=== PATIENT | male | born 1945 | race Caucasian/White ===

== ENCOUNTER 2018-06-02 09:49 | Inpatient (IN) | payer BC, MEDICARE ==
[2018-06-02] MEDS ORDERED: LIDOCAINE 1% INJ 10MG/ML (20 ML MDV) ONE (10:03)
[2018-06-02] MEDS ORDERED: MIDAZOLAM 2 MG/2 ML VIAL ONE (10:03)
[2018-06-02] MEDS ORDERED: diphenhydrAMINE 50 MG/ML 1 ML VIAL ONE (10:03)
[2018-06-02] MEDS ORDERED: SODIUM CHLORIDE 0.9% 500 ML IV ONE (10:05)
[2018-06-02] MEDS ORDERED: IV FLUID CONTINUATION 350 ML IV ONE (10:05)
[2018-06-02] MEDS ORDERED: BIVALIRUDIN 250 MG in SODIUM CHLORIDE 0.9% 50 ML IV ONE ×2 (10:15→10:48)
[2018-06-02] MEDS ORDERED: diphenhydrAMINE 50 MG/ML 1 ML VIAL IVP ONE (10:17)
[2018-06-02] MEDS ORDERED: MIDAZOLAM 2 MG/2 ML VIAL IVP ONE (10:17)
[2018-06-02] MEDS ORDERED: LIDOCAINE 1% INJ 10MG/ML (20 ML MDV) SQ ONE (10:17)
[2018-06-02] MEDS ORDERED: BIVALIRUDIN BOLUS 250 MG/50 ML IV ONE (10:25)
--- NOTE | 2018-06-02 10:31 | CONS ---
CONSULTATION Mr. Lambert is a 73-year-old male who presented with symptoms of chest discomfort that occurred today. His initial EKG showed ST-segment elevation in lead I and aVL and ST depression in the inferior leads. In transport by EMS, he had recurrent episode of ventricular fibrillation requiring defibrillation x6. At the time of my evaluation to the emergency room, he is awake, alert. His pain persists but better. He has no dyspnea. According to him, this is the first time he has pain for a while. He has been followed by Dr. Samuel Toth and was seen on May 24 and was stable at that time. He has sustained a myocardial infarction in 1997 and underwent stenting of his proximal LAD. At that time, he had mild disease in the circumflex and had a dominant right coronary artery. Patient denies any PND, orthopnea, or peripheral edema. He denies any dizziness, palpitation, or syncope. His coronary risk factors are remarkable for history of hypertension, hyperlipidemia. He is nondiabetic. MEDICATION: Include aspirin, Depakote, Inderal LA, isosorbide mononitrate, Lipitor 40 mg daily, Norvasc 10 mg daily, Paxil 40 mg daily, and vitamin D and Xanax. REVIEW OF SYSTEMS: RESPIRATORY SYSTEM: He has no recent wheezing. No cough. No history of documented obstructive lung disease. GI SYSTEM: No recent GI bleed. No peptic ulcer disease. SYSTEM: No dysuria, hematuria. NERVOUS SYSTEM: No history of stroke. PHYSICAL EXAMINATION: A 73-year-old male, alert, in mild discomfort. Heart rate running in the 60s to 70s with a blood pressure of 120/70. HEAD: Normocephalic. EYES: Sclerae nonicteric. NECK: No bruit. LUNGS: Clear to auscultation. HEART: Regular rate and rhythm. S1, S2. No S3 with systolic ejection murmur. No rub. ABDOMEN: Soft, obese, nontender. EXTREMITIES: Trace to 1+ edema. Lab data is pending. IMPRESSION: 1. Status post acute myocardial infarction complicated by ventricular fibrillation requiring mechanical ventilation. 2. Status post myocardial infarction in 1997. 3. History of hypertension. 4. Hyperlipidemia. RECOMMENDATION: Patient will proceed with emergent cardiac catheterization. The rationale behind the procedures, its risks and complication were discussed with the patient and his family and they are in full understanding and agreement. The procedure will be performed by Dr. Samuel Toth who is his primary night court magistrate. In the meantime, he will be continued on IV amiodarone. Thank you for this consult. Will follow with you. MMODL / IJN: [id number] /
[2018-06-02] MEDS ORDERED: LIDOCAINE-D5W PMX 2G/500ML 2,000 MG in DEXTROSE/WATER 1 500ML.BAG IV ONE (10:38)
[2018-06-02] MEDS ORDERED: LIDOCAINE 2% SYG (PF) 100 MG/5 ML IV ONE (10:38)
[2018-06-02 10:42] LABS: Basophils % (A) 1 %; Eosinophils # (A) 0.6 k/uL (0-0.7); Eosinophils % (A) 7 %; HCT 44.3 % (39.0-53.0); HGB 15.1 gm/dL (13.0-17.5); Lymphocytes # (A) 3.4 k/uL (1.0-4.8); Lymphocytes % (A) 41 %; MCHC 34.2 g/dL (31.0-37.0); MCV 90.7 fL (80.0-100.0); Mean Platelet Volume 8.1; Monocytes # (A) 0.6 k/uL (0-1.0); Monocytes % (A) 7 %; Neutrophils # (A) 3.7 k/uL (1.3-7.7); Neutrophils % (A) 43 %; Platelet Count 184 k/uL (150-450); RBC 4.88 m/uL (4.30-5.90); RDW 13.2 % (11.5-15.5); WBC 8.5 k/uL (3.8-10.6)
[2018-06-02 10:47] LABS: ALT 33 U/L (21-72); AST 26 U/L (17-59); Albumin 4.1 g/dL (3.5-5.0); Alkaline Phosphatase 82 U/L (38-126); Anion Gap 12 mmol/L; Blood Urea Nitrogen 17 mg/dL (9-20); Calcium 9.4 mg/dL (8.4-10.2); Carbon Dioxide 23 mmol/L (22-30); Chloride 106 mmol/L (98-107); Glucose 145 mg/dL (74-99); Potassium 3.7 mmol/L (3.5-5.1); Sodium 141 mmol/L (137-145); Total Bilirubin 0.5 mg/dL (0.2-1.3); Total Protein 6.6 g/dL (6.3-8.2)
[2018-06-02] MEDS ORDERED: POTASSIUM CHLORIDE 20 MEQ in WATER FOR INJECTION 1 100ML.BAG IVPB STA (10:49)
--- NOTE | 2018-06-02 10:52 | XR ---
EXAMINATION TYPE: XR chest 1V portable DATE OF EXAM: 06/02/2018 COMPARISON: None INDICATION: Chest pain, cardiac arrest TECHNIQUE: Single frontal view of the chest is obtained. FINDINGS: The heart size is mildly prominent. The pulmonary vasculature is normal. The lungs are clear. No pneumothorax is evident. No displaced rib fractures are identified. IMPRESSION: 1. Mild cardiomegaly.
[2018-06-02] MEDS ORDERED: CLOPIDOGREL 75 MG TAB ONE (10:53)
[2018-06-02] MEDS ORDERED: NALOXONE 0.4 MG/ML 1 ML VIAL IV PRN (10:53)
--- NOTE | 2018-06-02 10:53 | ED ---
General Adult HPI - General Chief complaint: Cardiac Arrest/CPR Stated complaint: STEMI Source: EMS Mode of arrival: EMS Limitations: no limitations - History of Present Illness Initial comments: Dictation was produced using [employer] dictation software. please excuse any grammatical, word or spelling errors. Chief Complaint: 73-year-old male with past medical history of a psychiatric disease, coronary artery disease, dyslipidemia, anxiety presents with chest pain. History of Present Illness: Patient was brought in by EMS for chest pain. Prehospital EKG showed STEMI. Patient has a past medical history of hypertension, psychiatric disease, dyslipidemia, depression. According to EMS while en route to the emergency department he had an episode of V. fib arrest. He was shocked 6 times. The ROS documented in this emergency department record has been reviewed and confirmed by me. Those systems with pertinent positive or negative responses have been documented in the HPI. All other systems are other negative and/or noncontributory. - Related Data Home Medications Medication Instructions Recorded Confirmed ALPRAZolam [Xanax] 0.5 mg PO BID PRN 06/02/18 06/02/18 Acetaminophen [Tylenol] 325 mg PO Q4H PRN 06/02/18 06/02/18 Aspirin EC [Ecotrin Low Dose] 81 mg PO DAILY 06/02/18 06/02/18 Atorvastatin Calcium [Lipitor] 40 mg PO DAILY 06/02/18 06/02/18 Celecoxib [CeleBREX] 200 mg PO DAILY 06/02/18 06/02/18 Divalproex [Depakote] 500 mg PO BID 06/02/18 06/02/18 Isosorbide Mononitrate ER [Imdur] 30 mg PO DAILY 06/02/18 06/02/18 Nitroglycerin Sl Tabs [Nitrostat] 0.4 mg SUBLINGUAL Q5M PRN 06/02/18 06/02/18 Nizatidine [Axid] 150 mg PO DAILY 06/02/18 06/02/18 PARoxetine HCL 40 mg PO DAILY 06/02/18 06/02/18 Propranolol HCl 80 mg PO BID 06/02/18 06/02/18 amLODIPine [Norvasc] 10 mg PO DAILY 06/02/18 06/02/18 Allergies Allergy/AdvReac Type Severity Reaction Status Date / Time No Known Allergies Allergy Verified 06/02/18 10:10 Review of Systems ROS Statement: Those systems with pertinent positive or pertinent negative responses have been documented in the HPI. ROS Other: All systems not noted in ROS Statement are negative. General Exam - General Exam Comments Initial Comments: PHYSICAL EXAM: General Impression: Alert and oriented x3, diaphoretic HEENT: Normocephalic atraumatic, extra-ocular movements intact, pupils equal and reactive to light bilaterally, mucous membranes moist. Cardiovascular: Heart regular rate and rhythm, S1&S2 audible, no murmurs, rubs or gallops Chest: Lungs clear to auscultation bilaterally, no rhonchi, no wheeze, no rales Abdomen: Bowel sounds present, abdomen soft, non-tender, non-distended, no organomegaly Musculoskeletal: Pulses present and equal in all extremities, no peripheral edema Motor: Power 5/5 bilaterally, no focal deficits noted Neurological: CN II-XII grossly intact, no focal motor or sensory deficits noted Skin: Intact with no visualized rashes Psych: Normal affect and mood Limitations: no limitations Course Vital Signs 06/02/18 10:08 Temperature 98 F Pulse Rate 72 Respiratory 16 Rate Blood Pressure 114/82 O2 Sat by Pulse 97 Oximetry Medical Decision Making - Medical Decision Making ED course: 73-year-old male presents with clinical presentation consistent with ST segment elevation [place]. Vital signs upon arrival are within acceptable limits. Code STEMI was paged. Patient was given aspirin and nitroglycerin by prehospital staff. Cardiac pads placed. Patient dispositioned quickly to the [facility] for PCI. - Lab Data Result diagrams: 06/02/18 10:00 Lab Results 06/02/18 06/02/18 Range/Units 10:00 10:00 Sodium 141 (137-145) mmol/L Potassium 3.7 (3.5-5.1) mmol/L Chloride 106 (98-107) mmol/L Carbon Dioxide 23 (22-30) mmol/L Anion Gap 12 mmol/L BUN 17 (9-20) mg/dL Creatinine 0.90 (0.66-1.25) mg/dL Est GFR (CKD-EPI)AfAm >90 (>60 ml/min/1.73 sqM) Est GFR (CKD-EPI)NonAf 84 (>60 ml/min/1.73 sqM) Glucose 145 H (74-99) mg/dL Calcium 9.4 (8.4-10.2) mg/dL Total Bilirubin 0.5 (0.2-1.3) mg/dL AST 26 (17-59) U/L ALT 33 (21-72) U/L Alkaline Phosphatase 82 (38-126) U/L Total Creatine Kinase 57 (55-170) U/L Total Protein 6.6 (6.3-8.2) g/dL Albumin 4.1 (3.5-5.0) g/dL Disposition Clinical Impression: Acute myocardial infarction Disposition: ADMITTED IP TO THIS HOSP Condition: Critical Time of Disposition: 10:53
[2018-06-02] MEDS ORDERED: CLOPIDOGREL 75 MG TAB PO ONE (10:57)
[2018-06-02 11:01] LABS: INR 1.1 (<1.2); Partial Thromboplastin Time 23.2 sec (22.0-30.0); Prothrombin Time 10.5 sec (9.0-12.0)
[2018-06-02 11:04] LABS: Creatine Kinase MB 0.9 ng/mL (0.0-2.4); Troponin I 0.018 ng/mL (0.000-0.034)
[2018-06-02] MEDS ORDERED: IOPAMIDOL-370 100ML BTL INJ ONE (11:16)
[2018-06-02] MEDS ORDERED: IOPAMIDOL-370 125ML BTL INJ ONE (11:16)
[2018-06-02] MEDS ORDERED: IOPAMIDOL-250 100ML BTL INTRAARTER ONE (11:17)
[2018-06-02] MEDS ORDERED: ATROPINE SULFATE 0.1 MG/ML 10ML SYRINGE IV PRN (11:25)
[2018-06-02] MEDS ORDERED: RX INFO: IV CONTRAST WAS GIVEN 1 EACH MISC MISCELLANE PRN (11:25)
[2018-06-02] MEDS ORDERED: MAG HYDROX/AL HYDROX/SIMETH 30 ML CUP PO PRN (11:25)
[2018-06-02] MEDS ORDERED: NITROGLYCERIN SL TABS 0.4 MG TAB SUBLINGUAL PRN (11:25)
[2018-06-02] MEDS ORDERED: ZOLPIDEM 5 MG TAB PO PRN (11:25)
[2018-06-02] MEDS ORDERED: SODIUM CHLORIDE 0.9% 1,000 ML IV SCH (11:30)
[2018-06-02 12:13] LABS: Glucose,Whole Blood 105 mg/dL (75-99)
--- NOTE | 2018-06-02 12:52 | CC ---
CARDIAC CATHETERIZATION REPORT DATE OF SERVICE: 06/02/2018 PROCEDURE: Left heart catheterization, coronary angiography and PTCA and stenting of a totally occluded nondominant circumflex coronary artery with a drug-eluting stent performed in the setting of acute lateral wall myocardial infarction. PERFORMED BY: Dr. Hannah Toth. Moderate conscious sedation time was 52 minutes. Patient was administered Versed, Benadryl and his oxygen saturation, hemodynamics and EKG were monitored closely. PROCEDURE NOTE: Under local anesthesia and strict aseptic precautions, a 6-Beninese introducer was placed in the right femoral artery. I had to use a dilator because of some difficulty in advancing the sheath. I used a left Sandra-type guide catheter to cannulate the left coronary artery and noted that the circumflex vessel was totally occluded. I performed intervention of the circumflex first and then did selective coronary angiography of the right coronary artery and also checked LV pressures but did not perform an LV-gram. The sheath was then sutured and patient was sent to the room in a stable condition. At the end of the injection, the common femoral angiogram revealed that there may be some thrombus in the common femoral vessel, but distally the pulse was excellent. I therefore did not put an Angio-Seal, but sutured the sheath and will pull the sheath in 2 hours once the effect of Angiomax is over. Patient received Angiomax bolus and infusion as per protocol and also received 600 mg of Plavix. A drug-eluting stent was placed in the circumflex coronary artery. This was a 3.0 caliber, 18 mm long Xience stent. PCI PROCEDURE DETAILS: A standard left Sandra-type guide catheter was used. A BMW wire was used to cross the lesion. Predilatation was performed using initially a trek balloon of 12 mm length and then I used a 15 mm long NC Trek balloon at higher pressures. I had some difficulty advancing the stent, but after the NC Trek balloon dilatation, it was more easier. A 3.0 caliber 18 mm long Xience stent was deployed with excellent angiographic result. The sheath was sutured and patient sent to the room in a stable condition. He received Angiomax bolus and infusion as per protocol and also received 600 mg of Plavix orally. CARDIAC CATHETERIZATION FINDINGS: The left ventricular end-diastolic pressure was 20 mmHg without any gradient across the aortic valve. CORONARY ANGIOGRAPHY FINDINGS: RIGHT CORONARY ARTERY: This is technically a very dominant vessel, has multiple areas of irregularities, but there is no critical significant stenosis noted. It is quite large in caliber distribution and supplies a sizable amount of myocardium. Distally bifurcates into a large PLV and a smaller PDA that supplies a sizable amount of myocardium. There are minor diffuse irregularities of about 20%-40% but no critical lesion is noted in the dominant RCA. LEFT MAIN CORONARY ARTERY: This is a short patent vessel which has a distal lesion of about 15%-20% and bifurcates into LAD and circumflex. LEFT ANTERIOR DESCENDING CORONARY ARTERY: This vessel was previously stented in the setting of an acute GA in 1997 with a bare metal stent and now it appears to be widely patent with good flow. There is; however, diffuse distal disease noted within the LAD but no critical stenosis is noted. LAD runs all the way to the apex, gives off septal and diagonal branches, supplies a sizable amount of myocardium. The mid LAD that was stented is widely patent. LEFT POSTERIOR CIRCUMFLEX CORONARY ARTERY: This vessel is totally occluded and seen as a stump and is the culprit lesion. FINAL IMPRESSION: This patient suffered from acute anteroseptal myocardial infarction in 1997, underwent stenting with a bare metal stent. Now that LAD is widely patent with good flow. The current acute lateral wall GA was caused by total occlusion of circumflex and this was stented with a drug-eluting stent with excellent angiographic result. The right coronary artery is very dominant, has mild to moderate diffuse disease but no critical lesions were noted. Filling pressures are elevated, but there was no gradient across the aortic valve. The results were discussed with the patient and family and patient will be watched closely in the ICU. The sheath will be pulled 2 hours later. There was a suggestion of some thrombus in the common femoral on the basis of an angiogram and this will be watched closely. MMODL / IJN: [id number] /
--- NOTE | 2018-06-02 13:40 | P.HPIM ---
Addendum entered and electronically signed by Kerri Rutledge PA-C 06/02/18 13: 53: History of closed head injury Original Note: <Kerri Rutledge - Last Filed: 06/02/18 13:29> History of Present Illness H&P Date: 06/02/18 Chief Complaint: Chest pain This is a 73-year-old male, patient of Dr. Spence. He has a known past medical history of myocardial infarction in 1997 with stent to the LAD, coronary disease , hyperlipidemia, anxiety, hypertension and mood disorder. Patient was brought into the emergency room via EMS. He had been having chest pains. Initial EKG had showed ST segment elevation in lead I and aVL. In transport by EMS he had recurrent episodes of ventricle fibrillation requiring defibrillation 6 times. Patient reports he was having chest pains in the center of his chest radiating down his arm left arm. Also having some shortness of breath. Cardiology was notified the ER. Patient underwent urgent heart catheterization. Heart catheterization showed total occlusion of the circumflex patient is now status post stent placement to the circumflex. Patient is currently in the ICU, on 2 L nasal cannula. He is awake and alert. No further episodes of chest pain. He is answering questions appropriately. Patient denies any cough, fever or chills or sweats. Denies any nausea vomiting. Denies any bowel changes or urinary symptoms. Review of Systems Please refer to HPI otherwise unremarkable Medications and Allergies Home Medications Medication Instructions Recorded Confirmed Type ALPRAZolam [Xanax] 0.5 mg PO BID PRN 06/02/18 06/02/18 History Acetaminophen [Tylenol] 325 mg PO Q4H PRN 06/02/18 06/02/18 History Aspirin EC [Ecotrin Low Dose] 81 mg PO DAILY 06/02/18 06/02/18 History Atorvastatin Calcium [Lipitor] 40 mg PO DAILY 06/02/18 06/02/18 History Celecoxib [CeleBREX] 200 mg PO DAILY 06/02/18 06/02/18 History Divalproex [Depakote] 500 mg PO BID 06/02/18 06/02/18 History Isosorbide Mononitrate ER [Imdur] 30 mg PO DAILY 06/02/18 06/02/18 History Nitroglycerin Sl Tabs [Nitrostat] 0.4 mg SUBLINGUAL Q5M PRN 06/02/18 06/02/18 History Nizatidine [Axid] 150 mg PO DAILY 06/02/18 06/02/18 History PARoxetine HCL 40 mg PO DAILY 06/02/18 06/02/18 History Propranolol HCl 80 mg PO BID 06/02/18 06/02/18 History amLODIPine [Norvasc] 10 mg PO DAILY 06/02/18 06/02/18 History Allergies Allergy/AdvReac Type Severity Reaction Status Date / Time No Known Allergies Allergy Verified 06/02/18 10:10 Physical Exam Vitals: Vital Signs Temp Pulse Pulse Resp BP BP Pulse Ox 06/02/18 11:45 98 F 68 16 118/71 97 06/02/18 11:30 98 F 65 16 117/75 97 06/02/18 10:08 98 F 72 16 114/82 97 Intake and Output 06/01/18 06/02/18 06/02/18 22:59 06:59 14:59 Intake Total 247.6 Balance 247.6 Intake: IV 247.6 Sodium Chloride 0.9% 1, 75 000 ml @ 75 mls/hr IV . [id number] [facility] Rx#:[id number] Other: Weight 122.47 kg Head normocephalic Neck supple Lungs clear to auscultation bilaterally no wheezing or crackles Heart regular rate and rhythm S1-S2, no rub or gallop Abdomen is soft nontender nondistended positive bowel sounds no hepatosplenomegaly Extremities no edema Neuro alert and orientated to 3 Results CBC & Chem 7: 06/02/18 10:00 06/02/18 10:00 Labs: Abnormal Lab Results - Last 24 Hours (Table) 06/02/18 06/02/18 Range/Units 10:00 12:12 Glucose 145 H (74-99) mg/dL POC Glucose (mg/dL) 105 H (75-99) mg/dL Assessment and Plan Assessment: 1. Acute lateral wall myocardial infarction present on admission: Status post heart catheterization with stent to the circumflex. Patient is currently in the ICU. Continue aspirin, Plavix, Lipitor BLAYNE inhibitor and beta carolin. Patient currently chest pain-free. Cardiology following closely. 2. Ventricular fibrillation requiring defibrillation 6 3. Previous history of myocardial infarction, coronary disease with cardiac stent 4. Essential hypertension 5. Hyperlipidemia 6. Borderline diabetic: Currently diet controlled. Add sliding scale coverage 7. Mood disorder continue Depakote. 8. Generalized anxiety disorder continue Paxil Time with Patient: Greater than 30 (Greater than 60% of the total time spent in counseling and coordination of care.I performed an examination of the patient and discussed their management with the physician Resaw Carriage Operator. I have reviewed the Physician Resaw Carriage Operator's notes and agree with the documented findings and plan of care) <Juliana Meyer A - Last Filed: 06/02/18 15:14> Physical Exam Osteopathic Statement: *. No significant issues noted on an osteopathic structural exam other than those noted in the History and Physical/Consult. Vitals: Vital Signs Temp Pulse Pulse Resp BP BP Pulse Ox 06/02/18 15:00 56 L 15 101/52 96 06/02/18 14:30 54 L 28 H 97 06/02/18 14:00 52 L 16 106/68 97 06/02/18 13:30 56 L 23 101/78 97 06/02/18 13:00 51 L 16 109/69 96 06/02/18 12:30 55 L 15 118/72 97 06/02/18 11:45 98 F 68 16 118/71 97 06/02/18 11:30 98 F 65 16 117/75 97 06/02/18 10:08 98 F 72 16 114/82 97 Intake and Output 06/02/18 06/02/18 06/02/18 06:59 14:59 22:59 Intake Total 562.6 115 Output Total 200 Balance 362.6 115 Intake: IV 322.6 Sodium Chloride 0.9% 1, 150 000 ml @ 75 mls/hr IV . [id number] [facility] Rx#:[id number] Intake, IV Titration 115 Amount Lidocaine-D5w Pmx 2G/ 15 500Ml 2,000 mg In Dextrose/Water 1 500ml. bag @ 0 mls/hr IV .[facility] Rx#:[id number] Potassium Chloride 20 meq 100 In Water For Injection 1 100ml.bag @ 50 mls/hr IVPB ONCE [facility] Rx#: [id number] Oral 240 Output: Urine 200 Other: Weight 122.47 kg ABP, PAP, CO, CI - Last 8 Hours Arterial Blood Pressure 110/66 Arterial Blood Pressure 117/67 Arterial Blood Pressure 122/75 Arterial Blood Pressure 125/78 Results CBC & Chem 7: 06/02/18 10:00 06/02/18 10:00 Labs: Abnormal Lab Results - Last 24 Hours (Table) 06/02/18 06/02/18 Range/Units 10:00 12:12 Glucose 145 H (74-99) mg/dL POC Glucose (mg/dL) 105 H (75-99) mg/dL Assessment and Plan Assessment: Patient seen and examined in the intensive care unit with nursing staff at bedside. Patient seen and covering for Dr. Molina as well as refrigerator repairman consult. Patient has been hemodynamically stable since his stenting and heart catheterization. He did have V. fib arrest. The patient is currently on 2 L nasal cannula. Right groin sheath is being pulled by nursing. The patient does have a history of [place], hypertension, stenting in the past. He also has a history of a closed head injury. Patient would benefit from PSG and outpatient sleep apnea workup. Continue aspirin, Plavix, Lipitor, BLAYNE inhibitor, beta carolin. Patient is currently chest free and denies shortness of breath. Appreciate cardiology. Monitor blood sugar and insulin sliding scale. Continue patient's home Depakote and Paxil. Continue to monitor in the intensive care unit. ~Juliana Meyer DO
[2018-06-02] MEDS ORDERED: Magnesium Replacement Protocol 1 EACH MISC MISCELLANE PRN (15:45)
[2018-06-02] MEDS: MAGNESIUM SULFATE-D5W PMX 1 GM in DEXTROSE/WATER 1 100ML.BAG IVPB SCH ×2 (17:06→18:09)
[2018-06-02 17:17] LABS: Glucose,Whole Blood 114 mg/dL (75-99)
[2018-06-02] MEDS: INSULIN ASPART 100 UNIT/ML 1 ML 10 ML VIAL SQ SCH ×2 (17:42→20:45)
[2018-06-02] MEDS: METOPROLOL TARTRATE 25 MG TAB PO SCH (20:36)
[2018-06-02 20:46] LABS: Glucose,Whole Blood 107 mg/dL (75-99)
[2018-06-02] MEDS: DIVALPROEX 500 MG TABLET.DR PO SCH (20:49)
[2018-06-02] MEDS: ATORVASTATIN 80 MG TAB PO SCH (20:49)
[2018-06-02 22:25] LABS: Magnesium 2.2 mg/dL (1.6-2.3); Potassium 4.2 mmol/L (3.5-5.1)
[2018-06-03 05:06] LABS: Basophils % (A) 0 %; Eosinophils # (A) 0.3 k/uL (0-0.7); Eosinophils % (A) 3 %; HCT 40.1 % (39.0-53.0); HGB 13.1 gm/dL (13.0-17.5); Lymphocytes # (A) 2.6 k/uL (1.0-4.8); Lymphocytes % (A) 21 %; MCH 29.7 pg (25.0-35.0); MCHC 32.8 g/dL (31.0-37.0); MCV 90.6 fL (80.0-100.0); Mean Platelet Volume 8.2; Monocytes # (A) 0.9 k/uL (0-1.0); Monocytes % (A) 8 %; Neutrophils # (A) 8.3 k/uL (1.3-7.7); Neutrophils % (A) 67 %; Platelet Count 153 k/uL (150-450); RBC 4.42 m/uL (4.30-5.90); RDW 13.1 % (11.5-15.5); WBC 12.3 k/uL (3.8-10.6)
[2018-06-03 05:15] LABS: Anion Gap 6 mmol/L; Blood Urea Nitrogen 21 mg/dL (9-20); Carbon Dioxide 27 mmol/L (22-30); Chloride 106 mmol/L (98-107); Glucose 99 mg/dL (74-99); Potassium 4.5 mmol/L (3.5-5.1); Sodium 139 mmol/L (137-145)
--- NOTE | 2018-06-03 07:29 | PN ---
PROGRESS NOTE Mr. Lambert is a 73-year-old male known history of coronary artery disease who presented with an acute myocardial infarction complicated by ventricle fibrillation requiring cardioversion. He underwent cardiac catheterization and stenting of left circumflex by Dr. Samuel Toth. He is doing well this morning. He has some soreness in the chest. His breathing has been stable. He denies any dizziness or palpitation. He denies any nausea. No cough. No fever. He is in sinus mechanism without any further episode of arrhythmia. He continues on amlodipine 5 mg daily, aspirin once a day, Plavix 75 mg daily, Depakote, isosorbide mononitrate 30 mg daily, lisinopril 10 mg daily, metoprolol tartrate 25 mg twice a day. PHYSICAL EXAMINATION: Blood pressure 117/70 with a heart in the 60s. LUNGS: Clear. HEART: Rate rhythm S1, S2. No S3. No rub. ABDOMEN: Soft, nontender. Right groin hematoma. EXTREMITIES: No edema. LAB DATA: Revealed BUN and creatinine 21 and 0.9. His troponin at peak is 60.4. Hemoglobin of 13.1. His EKG is consistent with lateral wall ischemia. IMPRESSION: 1. Status post acute myocardial infarction with stenting of the left circumflex, complicated by ventricular fibrillation, stable. 2. Prior history of stenting of the LAD, stable. 3. History of hypertension. 4. History of hyperlipidemia. RECOMMENDATION: From the cardiac standpoint, we will obtain echocardiogram with Doppler. Increase his level of activity. Transfer him to telemetry floor and depending on his progress, further recommendation will be made. MMODL / IJN: [id number] /
[2018-06-03 07:31] LABS: Glucose,Whole Blood 108 mg/dL (75-99)
[2018-06-03] MEDS: INSULIN ASPART 100 UNIT/ML 1 ML 10 ML VIAL SQ SCH ×4 (08:43→21:32)
[2018-06-03] MEDS: amLODIPine 5 MG TAB PO SCH (08:52)
[2018-06-03] MEDS: DIVALPROEX 500 MG TABLET.DR PO SCH ×2 (08:52→21:33)
[2018-06-03] MEDS: LISINOPRIL 10 MG TAB PO SCH (08:52)
[2018-06-03] MEDS: PARoxetine 20 MG TAB PO SCH (08:52)
[2018-06-03] MEDS: CLOPIDOGREL 75 MG TAB PO SCH (08:52)
[2018-06-03] MEDS: METOPROLOL TARTRATE 25 MG TAB PO SCH ×2 (08:52→21:33)
[2018-06-03] MEDS: SPIRONOLACTONE 25 MG TAB PO SCH (08:52)
[2018-06-03] MEDS: ASPIRIN 81 MG PO SCH (08:52)
[2018-06-03] MEDS ORDERED: ISOSORBIDE MONONITRATE ER 30 MG TAB.ER.24H PO SCH (09:00)
[2018-06-03] MEDS ORDERED: NON-FORMULARY DRUG (Aspirin Ec 81 MG) PO SCH (09:00)
--- NOTE | 2018-06-03 09:42 | ECHOF ---
Referral Reason:mi MEASUREMENTS -------- HEIGHT: 180.3 cm WEIGHT: 122.5 kg BP: 129/88 IVSd: 1.1 cm (0.6 - 1.1) LVIDd: 4.6 cm (3.9 - 5.3) LVPWd: 1.2 cm (0.6 - 1.1) IVSs: 1.1 cm LVIDs: 3.7 cm LVPWs: 1.1 cm Ao Diam: 3.5 cm (2.0 - 3.7) LA Diam: 3.4 cm (2.7 - 3.8) MV EXCURSION: 18.742 mm (> 18.000) MV EF SLOPE: 152 mm/s (70 - 150) EPSS: 0.4 cm MV E Maurizio: 0.89 m/s MV DecT: 247 ms MV A Maurizio: 0.29 m/s MV E/A Ratio: 3.08 RAP: 5.00 mmHg RVSP: 9.49 mmHg FINDINGS -------- Sinus rhythm. This was a technically difficult study with suboptimal views. The left ventricular size is normal. Left ventricular wall thickness is normal. Overall left vent ricular systolic function is severely impaired with, an EF between 25 - 30 %. Inferiorlateral Hypok inesis Inferior Hypokinesis Anterior is hypokinetic Septal Hypokinesis [place] Hypokinesis. The right ventricle is normal in size and function. The left atrium is normal in size. The right atrium is normal in size. Lumason used The aortic valve is trileaflet, and appears structurally normal. No aortic stenosis or regurgitation. There is trace mitral regurgitation. Trace tricuspid regurgitation present. The right ventricular systolic pressure, as measured by Dopp ler, is 9.49mmHg. Pulmonic valve appears structurally normal. CONCLUSIONS -------- 1. Sinus rhythm. 2. This was a technically difficult study with suboptimal views. 3. The left ventricular size is normal. 4. Left ventricular wall thickness is normal. 5. Overall left ventricular systolic function is severely impaired with, an EF between 25 - 30 %. 6. Inferiorlateral Hypokinesis 7. Inferior Hypokinesis 8. Anterior is hypokinetic 9. Septal Hypokinesis 10. [place] Hypokinesis. 11. The right ventricle is normal in size and function. 12. The left atrium is normal in size. 13. The right atrium is normal in size. 14. Lumason used 15. The aortic valve is trileaflet, and appears structurally normal. No aortic stenosis or regurgitat ion. 16. There is trace mitral regurgitation. 17. Trace tricuspid regurgitation present. 18. The right ventricular systolic pressure, as measured by Doppler, is 9.49mmHg. 19. Pulmonic valve appears structurally normal. LACE PAPER MACHINE OPERATOR: Sara Farmer RDCS
--- NOTE | 2018-06-03 11:24 | P.PN ---
<Kerri Rutledge - Last Filed: 06/03/18 11:18> Subjective Progress Note Date: 06/03/18 This is a 73-year-old male, patient of Dr. Spence. He has a known past medical history of myocardial infarction in 1997 with stent to the LAD, coronary disease , hyperlipidemia, anxiety, hypertension and mood disorder. Patient was brought into the emergency room via EMS. He had been having chest pains. Initial EKG had showed ST segment elevation in lead I and aVL. In transport by EMS he had recurrent episodes of ventricle fibrillation requiring defibrillation 6 times. Patient reports he was having chest pains in the center of his chest radiating down his arm left arm. Also having some shortness of breath. Cardiology was notified the ER. Patient underwent urgent heart catheterization. Heart catheterization showed total occlusion of the circumflex patient is now status post stent placement to the circumflex. Patient is currently in the ICU, on 2 L nasal cannula. He is awake and alert. No further episodes of chest pain. He is answering questions appropriately. Patient denies any cough, fever or chills or sweats. Denies any nausea vomiting. Denies any bowel changes or urinary symptoms. 06/03/2018 patient seen in the ICU this morning. He's had no further episodes of chest pain. He will likely be transferred out of the ICU this afternoon to [facility]. Patient denies any shortness of breath, nausea or vomiting, cough, bowel movement changes or urinary symptoms. Objective - Vital Signs Vital signs: Vital Signs Temp 98.3 F 06/03/18 08:00 Pulse 60 06/03/18 11:00 Resp 18 06/03/18 11:00 BP 104/68 06/03/18 11:00 Pulse Ox 96 06/03/18 11:00 Intake & Output 06/02/18 06/03/18 06/03/18 18:59 06:59 18:59 Intake Total 1147.6 780 20 Output Total 200 500 100 Balance 947.6 280 -80 Weight 122.47 kg 119.6 kg Intake: IV 792.6 680 20 0.9NaCl 40 20 Lidocaine-D5w Pmx 2G/ 45 15 500Ml 2,000 mg In Dextrose/Water 1 500ml. bag @ 0 mls/hr IV .[facility] Rx#:[id number] Magnesium Sulfate-D5w Pmx 100 100 1 gm In Dextrose/Water 1 100ml.bag @ 100 mls/hr IVPB Q1H [facility] Rx#: [id number] Potassium Chloride 20 meq 100 In Water For Injection 1 100ml.bag @ 50 mls/hr IVPB ONCE [facility] Rx#: [id number] Sodium Chloride 0.9% 1, 375 525 000 ml @ 75 mls/hr IV . [id number] [facility] Rx#:[id number] Intake, IV Titration 115 Amount Lidocaine-D5w Pmx 2G/ 15 500Ml 2,000 mg In Dextrose/Water 1 500ml. bag @ 0 mls/hr IV .[facility] Rx#:[id number] Potassium Chloride 20 meq 100 In Water For Injection 1 100ml.bag @ 50 mls/hr IVPB ONCE [facility] Rx#: [id number] Oral 240 100 Output: Urine 200 500 100 Other: Voiding Method Urinal ABP, PAP, CO, CI - Last Documented Arterial Blood Pressure 110/66 - Exam Head normocephalic Neck supple Lungs clear to auscultation bilaterally no wheezing or crackles Heart regular rate and rhythm S1-S2, no rub or gallop Abdomen is soft nontender nondistended positive bowel sounds no hepatosplenomegaly Extremities no edema. No hematomas noted in the groin bilaterally Neuro alert and orientated to 3 - Labs CBC & Chem 7: 06/03/18 04:28 06/03/18 04:28 Labs: Abnormal Lab Results - Last 24 Hours (Table) 06/02/18 06/02/18 06/02/18 Range/Units 12:12 15:53 17:15 WBC (3.8-10.6) k/uL Neutrophils # (1.3-7.7) k/uL BUN (9-20) mg/dL POC Glucose (mg/dL) 105 H 114 H (75-99) mg/dL Troponin I 60.400 H* (0.000-0.034) ng/mL 06/02/18 06/02/18 06/03/18 Range/Units 20:43 21:58 04:28 WBC 12.3 H (3.8-10.6) k/uL Neutrophils # 8.3 H (1.3-7.7) k/uL BUN (9-20) mg/dL POC Glucose (mg/dL) 107 H (75-99) mg/dL Troponin I 51.800 H* (0.000-0.034) ng/mL 06/03/18 06/03/18 Range/Units 04:28 07:29 WBC (3.8-10.6) k/uL Neutrophils # (1.3-7.7) k/uL BUN 21 H (9-20) mg/dL POC Glucose (mg/dL) 108 H (75-99) mg/dL Troponin I (0.000-0.034) ng/mL Assessment and Plan Assessment: 1. Acute lateral wall myocardial infarction present on admission: Status post heart catheterization with stent to the circumflex. Continue aspirin, Plavix, Lipitor BLAYNE inhibitor and beta carolin. Patient currently chest pain-free. Cardiology following closely. 2. Ventricular fibrillation requiring defibrillation 6 3. Previous history of myocardial infarction, coronary disease with cardiac stent 4. Essential hypertension 5. Hyperlipidemia 6. Borderline diabetic: Currently diet controlled. Add sliding scale coverage. So far patient is not required insulin. 7. Mood disorder continue Depakote. 8. Generalized anxiety disorder continue Paxil 9. Leukocytosis possibly reactive to the myocardial infarction. Repeat CBC in a.m. Patient not showing any signs of infection. DVT prophylaxis will add subcu heparin and GI prophylaxis Pepcid I performed an examination of the patient and discussed their management with the physician Abrasive Grinder. I have reviewed the Physician Abrasive Grinder's notes and agree with the documented findings and plan of care <Juliana Meyer - Last Filed: 06/03/18 14:15> Objective - Vital Signs Vital signs: Vital Signs Temp 97.7 F 06/03/18 12:00 Pulse 55 L 06/03/18 13:00 Resp 18 06/03/18 13:00 BP 107/72 06/03/18 13:00 Pulse Ox 91 L 06/03/18 13:00 Intake & Output 06/02/18 06/03/18 06/03/18 18:59 06:59 18:59 Intake Total 1147.6 780 20 Output Total 200 500 100 Balance 947.6 280 -80 Weight 122.47 kg 119.6 kg 119.6 kg Intake: IV 792.6 680 20 0.9NaCl 40 20 Lidocaine-D5w Pmx 2G/ 45 15 500Ml 2,000 mg In Dextrose/Water 1 500ml. bag @ 0 mls/hr IV .[facility] Rx#:[id number] Magnesium Sulfate-D5w Pmx 100 100 1 gm In Dextrose/Water 1 100ml.bag @ 100 mls/hr IVPB Q1H [facility] Rx#: [id number] Potassium Chloride 20 meq 100 In Water For Injection 1 100ml.bag @ 50 mls/hr IVPB ONCE [facility] Rx#: [id number] Sodium Chloride 0.9% 1, 375 525 000 ml @ 75 mls/hr IV . [id number] [facility] Rx#:[id number] Intake, IV Titration 115 Amount Lidocaine-D5w Pmx 2G/ 15 500Ml 2,000 mg In Dextrose/Water 1 500ml. bag @ 0 mls/hr IV .[facility] Rx#:[id number] Potassium Chloride 20 meq 100 In Water For Injection 1 100ml.bag @ 50 mls/hr IVPB ONCE [facility] Rx#: [id number] Oral 240 100 Output: Urine 200 500 100 Other: Voiding Method Urinal ABP, PAP, CO, CI - Last Documented Arterial Blood Pressure 110/66 - Labs CBC & Chem 7: 06/03/18 04:28 06/03/18 04:28 Labs: Abnormal Lab Results - Last 24 Hours (Table) 06/02/18 06/02/18 06/02/18 Range/Units 15:53 17:15 20:43 WBC (3.8-10.6) k/uL Neutrophils # (1.3-7.7) k/uL BUN (9-20) mg/dL POC Glucose (mg/dL) 114 H 107 H (75-99) mg/dL Troponin I 60.400 H* (0.000-0.034) ng/mL 06/02/18 06/03/18 06/03/18 Range/Units 21:58 04:28 04:28 WBC 12.3 H (3.8-10.6) k/uL Neutrophils # 8.3 H (1.3-7.7) k/uL BUN 21 H (9-20) mg/dL POC Glucose (mg/dL) (75-99) mg/dL Troponin I 51.800 H* (0.000-0.034) ng/mL 06/03/18 06/03/18 Range/Units 07:29 12:15 WBC (3.8-10.6) k/uL Neutrophils # (1.3-7.7) k/uL BUN (9-20) mg/dL POC Glucose (mg/dL) 108 H 105 H (75-99) mg/dL Troponin I (0.000-0.034) ng/mL Assessment and Plan Assessment: Patient seen and examined in the intensive care unit with nursing staff at bedside. The patient has been hemodynamically stable. He is currently on room air. He is complaining of occasional nausea but otherwise feels well. He is being transferred to the selective care unit today. EF 25-30%. Cardiology recommendations. ~Juliana Meyer DO
[2018-06-03 11:32] VITALS: BMI 34.7
[2018-06-03 12:17] LABS: Glucose,Whole Blood 105 mg/dL (75-99)
[2018-06-03 17:15] LABS: Glucose,Whole Blood 100 mg/dL (75-99)
[2018-06-03] MEDS: HEPARIN SODIUM,PORCINE 5,000 UNIT/ML 1 ML VIAL SQ SCH (18:13)
[2018-06-03] MEDS ORDERED: ACETAMINOPHEN TAB 325 MG TAB PO PRN (18:35)
[2018-06-03] MEDS: ALPRAZolam 0.5 MG TAB PO PRN (18:43)
[2018-06-03] MEDS: ACETAMINOPHEN TAB 325 MG TAB PO PRN (19:29)
[2018-06-03 20:59] LABS: Glucose,Whole Blood 89 mg/dL (75-99)
[2018-06-03] MEDS: ATORVASTATIN 80 MG TAB PO SCH (21:33)
[2018-06-04] MEDS: HEPARIN SODIUM,PORCINE 5,000 UNIT/ML 1 ML VIAL SQ SCH ×4 (00:13→23:10)
[2018-06-04 06:07] LABS: Basophils % (A) 0 %; Eosinophils # (A) 0.2 k/uL (0-0.7); Eosinophils % (A) 2 %; HCT 38.9 % (39.0-53.0); HGB 12.9 gm/dL (13.0-17.5); Lymphocytes # (A) 2.2 k/uL (1.0-4.8); Lymphocytes % (A) 21 %; MCH 29.9 pg (25.0-35.0); MCHC 33.2 g/dL (31.0-37.0); MCV 90.2 fL (80.0-100.0); Mean Platelet Volume 8.1; Monocytes # (A) 0.9 k/uL (0-1.0); Monocytes % (A) 9 %; Neutrophils # (A) 7.2 k/uL (1.3-7.7); Neutrophils % (A) 67 %; Platelet Count 142 k/uL (150-450); RBC 4.32 m/uL (4.30-5.90); RDW 13.3 % (11.5-15.5); WBC 10.7 k/uL (3.8-10.6)
[2018-06-04] MEDS: INSULIN ASPART 100 UNIT/ML 1 ML 10 ML VIAL SQ SCH ×4 (06:10→21:48)
[2018-06-04 06:14] LABS: Glucose,Whole Blood 91 mg/dL (75-99)
[2018-06-04 06:15] LABS: Anion Gap 4 mmol/L; Blood Urea Nitrogen 17 mg/dL (9-20); Calcium 8.8 mg/dL (8.4-10.2); Carbon Dioxide 30 mmol/L (22-30); Chloride 105 mmol/L (98-107); Glucose 95 mg/dL (74-99); Potassium 4.1 mmol/L (3.5-5.1); Sodium 139 mmol/L (137-145)
[2018-06-04] MEDS: ASPIRIN 81 MG PO SCH (10:18)
[2018-06-04] MEDS: amLODIPine 5 MG TAB PO SCH (10:18)
[2018-06-04] MEDS: FAMOTIDINE 20 MG TAB PO SCH (10:18)
[2018-06-04] MEDS: DIVALPROEX 500 MG TABLET.DR PO SCH ×2 (10:18→20:43)
[2018-06-04] MEDS: CLOPIDOGREL 75 MG TAB PO SCH (10:18)
[2018-06-04] MEDS: LISINOPRIL 10 MG TAB PO SCH (10:19)
[2018-06-04] MEDS: METOPROLOL TARTRATE 25 MG TAB PO SCH ×2 (10:19→20:43)
[2018-06-04] MEDS: SPIRONOLACTONE 25 MG TAB PO SCH (10:19)
[2018-06-04] MEDS: PARoxetine 20 MG TAB PO SCH (10:19)
[2018-06-04 12:17] LABS: Glucose,Whole Blood 100 mg/dL (75-99)
[2018-06-04] MEDS: MAGNESIUM SULFATE-D5W PMX 1 GM in DEXTROSE/WATER 1 100ML.BAG IVPB SCH ×2 (12:38→13:39)
--- NOTE | 2018-06-04 12:48 | PN ---
PROGRESS NOTE DATE OF SERVICE: 06/04/2018. He is sitting up about to have his breakfast. He is not short of breath. He does not complain of any shortness of breath, but has some chest pain. His blood pressure is 135/82, respiratory rate of 18, pulse rate of 68, temperature 98 degrees Fahrenheit, O2 saturation is 93% on room air. HEENT is unremarkable. Chest is clear. Cardiovascular system reveals a S1, S2. Abdomen is soft. There is trace pedal edema. White count is 10.7, hemoglobin 12.9, sodium 139, potassium 4.1, chloride 105, bicarb 30, BUN 17, creatinine 0.9. IMPRESSION: At this time is: 1. Acute myocardial infarction. 2. Several episodes of VFib and cardiac arrest requiring defibrillation. 3. Mood disorder. 4. General anxiety. 5. The patient is status post stent to the circumflex. Continue aspirin, Plavix, increase his activity level. His prognosis at this time is fair. MMODL / IJN: [id number] /
[2018-06-04 17:10] LABS: Glucose,Whole Blood 119 mg/dL (75-99)
--- NOTE | 2018-06-04 20:36 | PN ---
PROGRESS NOTE This patient is status post acute myocardial infarction. Patient has a stent to the circumflex coronary artery. The patient is doing fairly well. Patient denies any chest pain or shortness of breath. No respiratory distress is noted. The patient is afebrile. Blood pressure is 107/72 mmHg. Respirations are not labored. Heart: First and second heart sounds are normal. Lungs are clinically clear to auscultation and percussion. Patient's last hemoglobin was 12.9, creatinine is normal. We will continue the current medications. The patient would ambulated. MMODL / IJN: [id number] /
[2018-06-04] MEDS: ACETAMINOPHEN TAB 325 MG TAB PO PRN (20:43)
[2018-06-04] MEDS: ATORVASTATIN 80 MG TAB PO SCH (20:43)
[2018-06-04 21:07] LABS: Glucose,Whole Blood 96 mg/dL (75-99)
[2018-06-04] MEDS: ALPRAZolam 0.5 MG TAB PO PRN (23:10)
[2018-06-05] MEDS: ACETAMINOPHEN TAB 325 MG TAB PO PRN ×2 (02:23→20:04)
[2018-06-05 06:20] LABS: Glucose,Whole Blood 89 mg/dL (75-99)
[2018-06-05] MEDS: INSULIN ASPART 100 UNIT/ML 1 ML 10 ML VIAL SQ SCH ×4 (06:32→21:16)
[2018-06-05] MEDS: HEPARIN SODIUM,PORCINE 5,000 UNIT/ML 1 ML VIAL SQ SCH ×3 (09:34→23:25)
[2018-06-05] MEDS: amLODIPine 5 MG TAB PO SCH (09:35)
[2018-06-05] MEDS: CLOPIDOGREL 75 MG TAB PO SCH (09:35)
[2018-06-05] MEDS: SPIRONOLACTONE 25 MG TAB PO SCH (09:35)
[2018-06-05] MEDS: DIVALPROEX 500 MG TABLET.DR PO SCH ×2 (09:35→20:04)
[2018-06-05] MEDS: ASPIRIN 81 MG PO SCH (09:35)
[2018-06-05] MEDS: FAMOTIDINE 20 MG TAB PO SCH (09:35)
[2018-06-05] MEDS: LISINOPRIL 10 MG TAB PO SCH (09:35)
[2018-06-05] MEDS: METOPROLOL TARTRATE 25 MG TAB PO SCH ×2 (09:35→20:04)
[2018-06-05] MEDS: PARoxetine 20 MG TAB PO SCH (09:36)
[2018-06-05 12:06] LABS: Glucose,Whole Blood 105 mg/dL (75-99)
[2018-06-05 17:30] LABS: Glucose,Whole Blood 91 mg/dL (75-99)
--- NOTE | 2018-06-05 18:10 | P.PN ---
Subjective Progress Note Date: 06/05/18 Principal diagnosis: Acute myocardial infarction involving the lateral wall status post stent to circumflex branch of left fibrillation requiring defibrillation history of coronary artery disease with prior stent, hypertension hypertensive cardiovascular disease, dyslipidemia 06/05/2018, patient seen eval examined during the rounds clinically patient has been doing well slightly breathing comfortably denies any chest pain denies any cough or sputum production labs reviewed medications reviewed care plan discussed with the patient at length, cardiovascular services following this patient as well he has been updated about his status of the coronary artery disease and severity of her heart failure Objective - Vital Signs Vital signs: Vital Signs Temp 98 F 06/05/18 16:20 Pulse 67 06/05/18 16:20 Resp 16 06/05/18 16:20 BP 128/80 06/05/18 16:20 Pulse Ox 94 L 06/05/18 16:20 Intake & Output 06/04/18 06/05/18 06/05/18 18:59 06:59 18:59 Intake Total 560 360 Balance 560 360 Weight 119.3 kg Intake: Intake, IV Titration 200 Amount Magnesium Sulfate-D5w Pmx 200 1 gm In Dextrose/Water 1 100ml.bag @ 100 mls/hr IVPB Q1H [facility] Rx#: [id number] Oral 360 360 Other: Voiding Method Urinal Toilet Toilet # Voids 1 1 2 ABP, PAP, CO, CI - Last Documented Arterial Blood Pressure 110/66 - Exam Head normocephalic Neck supple Lungs clear to auscultation bilaterally no wheezing or crackles Heart regular rate and rhythm S1-S2, no rub or gallop Abdomen is soft nontender nondistended positive bowel sounds no hepatosplenomegaly Extremities no edema. No hematomas noted in the groin bilaterally Neuro alert and orientated to 3 - Labs CBC & Chem 7: 06/04/18 05:35 06/04/18 05:35 Labs: Abnormal Lab Results - Last 24 Hours (Table) 06/05/18 Range/Units 11:54 POC Glucose (mg/dL) 105 H (75-99) mg/dL Assessment and Plan Assessment: 1. Acute lateral wall myocardial infarction present on admission: Status post heart catheterization with stent to the circumflex. Continue aspirin, Plavix, Lipitor BLAYNE inhibitor and beta carolin. Patient currently chest pain-free. Cardiology following closely. 2. Ventricular fibrillation requiring defibrillation 6 3. Previous history of myocardial infarction, coronary disease with cardiac stent 4. Essential hypertension 5. Hyperlipidemia 6. Borderline diabetic: Currently diet controlled. Add sliding scale coverage. So far patient is not required insulin. 7. Mood disorder continue Depakote. 8. Generalized anxiety disorder continue Paxil 9. Leukocytosis possibly reactive to the myocardial infarction. Repeat CBC in a.m. Patient not showing any signs of infection. DVT prophylaxis will add subcu heparin and GI prophylaxis Pepc Plan: As above Time with Patient: Greater than 30
--- NOTE | 2018-06-05 18:49 | PN ---
PROGRESS NOTE DATE OF SERVICE: 06/05/2018 Patient was seen on June2017. Patient has been hemodynamically stable. Has had no further episodes of chest pain. On physical examination blood pressure is 124/82, respiratory rate of 16, pulse rate of 64, temperature 98.5, O2 saturation is 96% on room air. HEENT is unremarkable. Chest reveals decreased breath sounds in the bases. Cardiovascular system reveals an S1, S2. Abdomen is soft. There is no pedal edema. IMPRESSION: At this time: 1. Acute myocardial infarction with several episodes of VFib, cardiac arrest requiring defibrillation. 2. Mood disorder and general anxiety. RECOMMENDATIONS: Increase his activity level. Continue patient on current medications which were reviewed. Increase his activity level. His prognosis is fair. MMODL / IJN: [id number] /
[2018-06-05] MEDS: ATORVASTATIN 80 MG TAB PO SCH (20:03)
[2018-06-05 21:03] LABS: Glucose,Whole Blood 101 mg/dL (75-99)
[2018-06-05] MEDS: ALPRAZolam 0.5 MG TAB PO PRN (21:44)
[2018-06-06] MEDS: CLOPIDOGREL 75 MG TAB PO SCH (08:25)
[2018-06-06] MEDS: HEPARIN SODIUM,PORCINE 5,000 UNIT/ML 1 ML VIAL SQ SCH ×2 (08:25→16:38)
[2018-06-06] MEDS: ASPIRIN 81 MG PO SCH (08:25)
[2018-06-06] MEDS: METOPROLOL TARTRATE 25 MG TAB PO SCH (08:26)
[2018-06-06] MEDS: PARoxetine 20 MG TAB PO SCH (08:26)
[2018-06-06] MEDS: SPIRONOLACTONE 25 MG TAB PO SCH (08:26)
[2018-06-06] MEDS: DIVALPROEX 500 MG TABLET.DR PO SCH (08:26)
[2018-06-06] MEDS: FAMOTIDINE 20 MG TAB PO SCH (08:26)
[2018-06-06 08:32] VITALS: RESP 18
--- NOTE | 2018-06-06 08:53 | PN ---
PROGRESS NOTE This patient is status post myocardial infarction and stent to the circumflex coronary artery. The patient is doing well. He denies any chest pain or shortness of breath. Patient is ambulatory in the hallway. Blood pressure is 128/80 mmHg. Respirations are not labored. First and second heart sounds are normal. Lungs are clinically clear to auscultation and percussion. We will continue the current medications. Echo and echocardiogram would be repeated tomorrow. If the patient's LV function remains significantly impaired, then we will consider to discharge the patient on life vest. MMODL / IJN: [id number] /
--- NOTE | 2018-06-06 10:37 | P.PN ---
Subjective Progress Note Date: 06/06/18 Interval history: 06/06/18- patient seen seen examined and evaluated today on rounds. He has been hemodynamically stable. Denies any further chest pain. His breathing has been stable. He denies any cough or congestion. He has been afebrile no further complaints. Objective - Vital Signs Vital signs: Vital Signs Temp 99.0 F 06/06/18 08:31 Pulse 72 06/06/18 08:32 Resp 18 06/06/18 08:32 BP 101/61 06/06/18 08:31 Pulse Ox 95 06/06/18 08:31 Intake & Output 06/05/18 06/06/18 06/06/18 18:59 06:59 18:59 Intake Total 300 Balance 300 Weight 119 kg Intake: Oral 300 Other: Voiding Method Toilet Toilet Toilet # Voids 2 3 ABP, PAP, CO, CI - Last Documented Arterial Blood Pressure 110/66 - Exam GENERAL EXAM: Alert, active, comfortable in no apparent distress. HEAD: Normocephalic. EYES: Normal reaction of pupils, equal size. NOSE: Clear with pink turbinates. THROAT: No erythema or exudates. NECK: No masses, no JVD. CHEST: No chest wall deformity. LUNGS: Equal air entry with no crackles, wheeze, rhonchi or dullness. CVS: S1 and S2 normal with no audible mumurs, regular rhythm. ABDOMEN: No hepatosplenomegaly, normal bowel sounds, no guarding or rigidity. EXTREMITIES: No edema noted, pedal pulses palpable. CENTRAL NERVOUS SYSTEM: No focal deficits, tone is normal in all 4 extremities. - Labs CBC & Chem 7: 06/04/18 05:35 06/04/18 05:35 Labs: Abnormal Lab Results - Last 24 Hours (Table) 06/05/18 06/05/18 Range/Units 11:54 21:01 POC Glucose (mg/dL) 105 H 101 H (75-99) mg/dL Assessment and Plan Assessment: Acute SD Episodes of ventricular fibrillation Cardiac arrest requiring defibrillation Mood disorders Generalized anxiety Hypertension Hyperlipidemia Plan Medications have been reviewed and will be continued as ordered. Continue with pulmonary hygiene, coughing and deep breathing exercises, and supportive care. Supplemental oxygen to maintain oxygen saturations of 92% or better. Continue nebulizer treatments. GI and DVT prophylaxis. Increase activity as tolerated We will continue to monitor labs/results and adjust treatment as necessary. Further recommendations pending. I performed an examination of the patient and discussed their management with the nurse practitioner. I have reviewed the nurse practitioner's note and agree with the documented findings and plan of care.
--- NOTE | 2018-06-06 10:56 | ECHOF ---
Referral Reason:assess lvf limited MEASUREMENTS -------- HEIGHT: 182.9 cm WEIGHT: 118.8 kg BP: 102/58 IVSd: 1.3 cm (0.6 - 1.1) LVIDd: 3.3 cm (3.9 - 5.3) LVPWd: 1.3 cm (0.6 - 1.1) IVSs: 1.3 cm LVIDs: 2.4 cm LVPWs: 1.2 cm FINDINGS -------- Sinus rhythm. This was a technically difficult study with suboptimal views. Limited Study for lv function. The left ventricular size is normal. There is mild concentric left ventricular hypertrophy. Overa ll left ventricular systolic function is mildly impaired with, an EF between 45 - 50 %. Apical sept um LV wall motion is hypokinetic. Lumason used CONCLUSIONS -------- 1. Sinus rhythm. 2. This was a technically difficult study with suboptimal views. 3. Limited Study for lv function. 4. The left ventricular size is normal. 5. There is mild concentric left ventricular hypertrophy. 6. Overall left ventricular systolic function is mildly impaired with, an EF between 45 - 50 %. 7. Apical septum LV wall motion is hypokinetic. 8. Lumason used [employer]: Sara Farmer RDCS
[2018-06-06] MEDS: LISINOPRIL 10 MG TAB PO SCH (11:17)
[2018-06-06] MEDS: amLODIPine 5 MG TAB PO SCH (11:17)
--- NOTE | 2018-06-06 12:36 | P.PN ---
Subjective Progress Note Date: 06/06/18 This is a 73-year-old gentleman who presented to the hospital with an acute ST elevation myocardial infarction. He underwent angioplasty and stenting of a totally occluded nondominant circumflex. Initial echocardiogram with Doppler study that was performed showed an ejection fraction of 25-30%. A limited echo was performed today which revealed an ejection fraction of 45%. Patient was seen and examined this morning, denied any chest pain or difficulty in breathing. He's been up ambulating without any difficulty. Objective - Vital Signs Vital signs: Vital Signs Temp 97.8 F 06/06/18 11:13 Pulse 61 06/06/18 11:14 Resp 18 06/06/18 11:14 BP 112/63 06/06/18 11:13 Pulse Ox 95 06/06/18 11:13 Intake & Output 06/05/18 06/06/18 06/06/18 18:59 06:59 18:59 Intake Total 300 Balance 300 Weight 119 kg Intake: Oral 300 Other: Voiding Method Toilet Toilet Toilet # Voids 2 3 ABP, PAP, CO, CI - Last Documented Arterial Blood Pressure 110/66 - Exam PHYSICAL EXAMINATION: GENERAL: 73-year-old gentleman in no acute distress at the time of my examination. HEENT: Head is atraumatic, normocephalic. Pupils equal, round. Sclera anicteric. Conjunctiva are clear. Mucous membranes of the mouth are moist. Neck is supple. There is no elevated jugular venous pressure. No carotid bruit is heard. HEART EXAMINATION: Heart S1, S2 normal. No murmur or gallop heard. CHEST EXAMINATION: Lungs are clear to auscultation and precussion. No chest wall tenderness is noted on palpation or with deep breathing. ABDOMEN: Soft, nontender. Bowel sounds are heard. No organomegaly noted. EXTREMITIES: 2+ peripheral pulses with no evidence of peripheral edema and no calf tenderness noted. NEUROLOGIC patient is awake, alert and oriented ?-3. . - Labs CBC & Chem 7: 06/04/18 05:35 06/04/18 05:35 Labs: Abnormal Lab Results - Last 24 Hours (Table) 06/05/18 Range/Units 21:01 POC Glucose (mg/dL) 101 H (75-99) mg/dL Assessment and Plan Plan: Assessment and plan Acute ST elevation myocardial infarction, status post angioplasty and stenting of the circumflex artery. #2 hypertension #3 hyperlipidemia Plan Repeat echocardiogram with Doppler study today showed an ejection fraction of 45 -50%. From cardiology's perspective, patient may be able to be discharged home today. We will make him a follow-up appointment with Dr. Hannah Toth in the office. DNP note has been reviewed, I agree with a documented findings and plan of care. Patient was seen and examined.
[2018-06-06 16:38] VITALS: BP 108/62; PULSE 74; TEMP 97.6
--- NOTE | 2018-06-06 17:34 | P.DS ---
Providers Date of admission: 06/02/18 10:04 Expected date of discharge: 06/06/18 Attending physician: Autumn Lloyd Consults: 06/02/18 11:25 Consult Physician Routine Consulting Provider: [facility] Consult Reason/Comments: Post Interventional patient Do you want consulting provider notified?: Already Contacted 06/02/18 13:32 Consult Physician Routine Consulting Provider: Juliana Meyer Consult Reason/Comments: ICU managment Do you want consulting provider notified?: Yes Primary care physician: [facility] Course: 73-year-old male with past medical history of a psychiatric disease, coronary artery disease, dyslipidemia, anxiety presents with chest pain, Prehospital EKG showed STEMI. Patient has a past medical history of hypertension, psychiatric disease, dyslipidemia, depression. According to EMS while en route to the emergency department he had an episode of V. fib arrest. He was shocked [address] Spence. He has a known past medical history of myocardial infarction in 1997 with stent to the LAD, coronary disease, hyperlipidemia, anxiety, hypertension and mood disorder. Patient was brought into the emergency room via EMS. He had been having chest pains. Initial EKG had showed ST segment elevation in lead I and aVL. In transport by EMS he had recurrent episodes of ventricle fibrillation requiring defibrillation 6 times. Patient reports he was having chest pains in the center of his chest radiating down his arm left arm. Also having some shortness of breath. Cardiology was notified the ER. Patient underwent urgent heart catheterization. Heart catheterization showed total occlusion of the circumflex patient underwent stent placement to the circumflex. Patient initially kept in ICU subsequently transferred to stepdown unit 06/06/18- patient seen seen examined and evaluated today on rounds. He has been hemodynamically stable. Denies any further chest pain. His breathing has been stable. He denies any cough or congestion. He has been afebrile no further complaints. Cardiovascular services recommended discharge Pertinent Studies: 06/02/2018, cardiac cath and angiogram for details please effort to the report however noted to have a stenosis of circumflex artery with a stent was done 06/03/2018, 2-D echo ejection fraction 25-30% with inferior lateral and inferior hypokinesia and anterior hypokinesia patient also noted a septal apical hypokinesia, RV is normal size, repeat echo limited view on June 06 ejection fraction noted to 45-50% apical LV is hypokinetic Procedures: As above Patient Condition at Discharge: Critical Plan - Discharge Summary Discharge Rx Participant: No New Discharge Prescriptions: New Atorvastatin [Lipitor] 80 mg PO HS #30 tab Clopidogrel [Plavix] 75 mg PO DAILY #30 tab Lisinopril [Zestril] 10 mg PO DAILY #30 tab Metoprolol Tartrate [Lopressor] 25 mg PO BID #603 tab Nitroglycerin Sl Tabs [Nitrostat] 0.4 mg SUBLINGUAL Q5M PRN #25 tab PRN Reason: Chest Pain Spironolactone [Aldactone] 25 mg PO DAILY #30 tab Continue Isosorbide Mononitrate ER [Imdur] 30 mg PO DAILY Aspirin EC [Ecotrin Low Dose] 81 mg PO DAILY Discontinued Propranolol HCl 80 mg PO BID amLODIPine [Norvasc] 10 mg PO DAILY Atorvastatin Calcium [Lipitor] 40 mg PO DAILY No Action Acetaminophen [Tylenol] 325 mg PO Q4H PRN PRN Reason: Pain Or Fever > 100.5 ALPRAZolam [Xanax] 0.5 mg PO BID PRN PRN Reason: Anxiety Nitroglycerin Sl Tabs [Nitrostat] 0.4 mg SUBLINGUAL Q5M PRN PRN Reason: Chest Pain Divalproex [Depakote] 500 mg PO BID Celecoxib [CeleBREX] 200 mg PO DAILY PARoxetine HCL 40 mg PO DAILY Nizatidine [Axid] 150 mg PO DAILY Discharge Medication List ALPRAZolam [Xanax] 0.5 mg PO BID PRN 06/02/18 [History] Acetaminophen [Tylenol] 325 mg PO Q4H PRN 06/02/18 [History] Aspirin EC [Ecotrin Low Dose] 81 mg PO DAILY 06/02/18 [History] Celecoxib [CeleBREX] 200 mg PO DAILY 06/02/18 [History] Divalproex [Depakote] 500 mg PO BID 06/02/18 [History] Isosorbide Mononitrate ER [Imdur] 30 mg PO DAILY 06/02/18 [History] Nitroglycerin Sl Tabs [Nitrostat] 0.4 mg SUBLINGUAL Q5M PRN 06/02/18 [History] Nizatidine [Axid] 150 mg PO DAILY 06/02/18 [History] PARoxetine HCL 40 mg PO DAILY 06/02/18 [History] Atorvastatin [Lipitor] 80 mg PO HS #30 tab 06/06/18 [Rx] Clopidogrel [Plavix] 75 mg PO DAILY #30 tab 06/06/18 [Rx] Lisinopril [Zestril] 10 mg PO DAILY #30 tab 06/06/18 [Rx] Metoprolol Tartrate [Lopressor] 25 mg PO BID #603 tab 06/06/18 [Rx] Nitroglycerin Sl Tabs [Nitrostat] 0.4 mg SUBLINGUAL Q5M PRN #25 tab 06/06/18 [Rx ] Spironolactone [Aldactone] 25 mg PO DAILY #30 tab 06/06/18 [Rx] Follow up Appointment(s)/Referral(s): Ge Toth MD [STAFF PHYSICIAN] - 06/13/18 9:30 am (Wednesday) Juliana Meyer DO [Doctor of Osteopathic Medicine] - 1 Week (Office is closed. Please call to schedule appointment) [facility], [NON-STAFF] - Coleman Spence MD [STAFF PHYSICIAN] - 06/14/18 2:30 pm (Wednesday) Patient Instructions/Handouts: *Surgery [facility] - After Heart Catheterization - Crusher Supervisor Instructions, Left Heart Catheterization (DC)
== END 2018-06-06 17:51 | disposition home health service (06) | DRG 246 ==
LOC: SUPCPDRO 09:49 → EC 09:49 → 6ICU 10:04 → 6SEL 06-03 14:02
PROVIDERS: ADMIT Internal Medicine; ATTEND Internal Medicine
PROC: B2111ZZ Fluoroscopy of Multiple Coronary Arteries using Low Osmolar Contrast (ICD-10-PCS; 2018-06-02)
PROC: 027034Z Dilation of Coronary Artery, One Artery with Drug-eluting Intraluminal Device, Percutaneous Approach (ICD-10-PCS; principal; 2018-06-02 10:05)
PROC: 4A023N7 Measurement of Cardiac Sampling and Pressure, Left Heart, Percutaneous Approach (ICD-10-PCS; 2018-06-02 10:05)
DX: I21.29 ST elevation (STEMI) myocardial infarction involving other sites (principal); I46.9 Cardiac arrest, cause unspecified; I49.01 Ventricular fibrillation; D72.829 Elevated white blood cell count, unspecified; E78.5 Hyperlipidemia, unspecified; F39 Unspecified mood [affective] disorder; F41.1 Generalized anxiety disorder; I11.9 Hypertensive heart disease without heart failure; I25.10 Atherosclerotic heart disease of native coronary artery without angina pectoris; I25.2 Old myocardial infarction; R73.03 Prediabetes; R11.0 Nausea; Z79.899 Other long term (current) drug therapy; Z79.82 Long term (current) use of aspirin; Z95.5 Presence of coronary angioplasty implant and graft
CPT/HCPCS: 71045; 80048; 80053; 82550; 82553; 83735; 84132; 84484; 85025; 85610; 85730; 93005; 93306; 93308; 93458; 96372; 96374; 96375; 99285

== ENCOUNTER 2022-11-16 13:00 | Inpatient (IN) | payer MEDICARE ==
[2022-11-16] MEDS ORDERED: SODIUM CHLORIDE 0.9% 500 ML 500 ML IV STA (13:42)
[2022-11-16] MEDS ORDERED: SODIUM CHLORIDE 0.9% 1,000 ML IV STA (13:42)
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
[2022-11-16 14:20] LABS: Basophils % (A) 0 %; Eosinophils % (A) 0 %; HGB 13.4 gm/dL (13.0-17.5); Lymphocytes # (A) 1.6 k/uL (1.0-4.8); Lymphocytes % (A) 10 %; MCH 30.4 pg (25.0-35.0); MCHC 31.9 g/dL (31.0-37.0); MCV 95.3 fL (80.0-100.0); Mean Platelet Volume 8.7; Monocytes # (A) 1.2 k/uL (0-1.0); Monocytes % (A) 7 %; Neutrophils # (A) 13.1 k/uL (1.3-7.7); Neutrophils % (A) 81 %; Platelet Count 229 k/uL (150-450); RBC 4.41 m/uL (4.30-5.90); RDW 13.2 % (11.5-15.5); WBC 16.2 k/uL (3.8-10.6)
[2022-11-16 14:32] LABS: INR 1.1 (<1.2); Prothrombin Time 11.4 sec (9.0-12.0)
[2022-11-16 15:00] LABS: Albumin 4.2 g/dL (3.5-5.0); Calcium 9.5 mg/dL (8.4-10.2); Magnesium 1.6 mg/dL (1.6-2.3); Total Bilirubin 0.5 mg/dL (0.2-1.3); Total Protein 6.9 g/dL (6.3-8.2)
[2022-11-16 15:10] LABS: Potassium 8.4 mmol/L (3.5-5.1)
[2022-11-16] MEDS ORDERED: CALCIUM CHLORIDE 100 MG/ML 10 ML SYRINGE IVP STA (15:10)
[2022-11-16] MEDS ORDERED: SODIUM BICARB 8.4% 50 ML SYR (1 MEQ/ML) IV STA (15:11)
[2022-11-16] MEDS ORDERED: INSULIN REGULAR 100 UNIT/ML VIAL (IV) IV ONE (15:12)
[2022-11-16] MEDS ORDERED: DEXTROSE 50% SYRINGE 50 ML IVP STA (15:12)
[2022-11-16] MEDS ORDERED: SODIUM POLYSTYRENE SULFONATE 15 GM/60 ML BOTTLE PO STA (15:13)
[2022-11-16] MEDS ORDERED: IPRATROPIUM-ALBUTEROL 3 ML NEB INHALATION STA (15:14)
--- NOTE | 2022-11-16 15:39 | XR ---
EXAMINATION TYPE: XR chest 2V DATE OF EXAM: 11/16/2022 3:35 PM COMPARISON: Chest radiographs from 06/02/2018. TECHNIQUE: XR chest 2V Frontal and lateral views of the chest. CLINICAL INDICATION:Male, 77 years old with history of pain; FINDINGS: Lungs/Pleura: There is no evidence of pleural effusion, focal consolidation, or pneumothorax. Pulmonary vascularity: Unremarkable. Heart/mediastinum: Cardiomediastinal silhouette is mildly enlarged and stable. Musculoskeletal: Multiple level degenerative disc disease changes seen throughout the spine. No acute osseous abnormality. IMPRESSION: 1. No acute cardiopulmonary disease/process. 2. Persistent mild cardiomegaly.
[2022-11-16] MEDS ORDERED: DEXTROSE IV SCH ×2 (16:00)
[2022-11-16] MEDS ORDERED: [UNRECOGNIZED DRUG - OTHER] IV SCH ×2 (16:00)
[2022-11-16] MEDS: DEXTROSE 5% IN WATER 1,000 ML with SODIUM BICARB (1 MEQ/ML) 150 ML IV SCH (17:06)
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
[2022-11-16] MEDS ORDERED: LIDOCAINE 2% URO-JET JELLY 5 ML KIT URETHRAL ONE (19:30)
[2022-11-16 19:34] LABS: Appearance,Urine Cloudy (Clear); Bacteria,Urine Rare /hpf; Bilirubin,Urine Negative (Negative); Blood,Urine Moderate (Negative); Color,Urine Yellow; Glucose,Urine (UA) 1+ (Negative); Hyaline Casts,Urine 12 /lpf (0-2); Ketones,Urine Negative (Negative); Leukocyte Esterase,Urine Negative (Negative); Mucus,Urine Rare /hpf; Nitrite,Urine Negative (Negative); Protein,Urine Trace (Negative); RBC,Urine 83 /hpf (0-5); Specific Gravity,Urine 1.019 (1.001-1.035); Squamous Epithelial Cell,Urine <1 /hpf (0-4); Urobilinogen,Urine <2.0 mg/dL (<2.0); WBC,Urine 3 /hpf (0-5)
[2022-11-16] MEDS: DIVALPROEX 500 MG TABLET.DR PO SCH (21:37)
[2022-11-16] MEDS: RIVAROXABAN 15 MG TAB PO SCH (21:37)
[2022-11-16] MEDS: PARoxetine 20 MG TAB PO SCH (21:37)
[2022-11-16] MEDS: ALPRAZolam 0.5 MG TAB PO SCH (21:37)
[2022-11-16] MEDS: CLOPIDOGREL 75 MG TAB PO SCH (21:37)
[2022-11-16] MEDS: METOPROLOL TARTRATE 50 MG TAB PO SCH (21:37)
[2022-11-16] MEDS: HYDROmorphone 0.5 MG/0.5 ML SYRINGE IVP PRN (21:37)
[2022-11-17] MEDS: DEXTROSE 5% IN WATER 1,000 ML with SODIUM BICARB (1 MEQ/ML) 150 ML IV SCH ×2 (05:30→12:08)
[2022-11-17 06:15] LABS: Glucose,Whole Blood 95 mg/dL (70-110)
[2022-11-17] MEDS: PANTOPRAZOLE 40 MG TABLET PO SCH (06:39)
[2022-11-17] MEDS: PARoxetine 20 MG TAB PO SCH ×2 (08:29→21:14)
[2022-11-17] MEDS: METOPROLOL TARTRATE 50 MG TAB PO SCH (08:53)
[2022-11-17] MEDS: HYDROmorphone 0.5 MG/0.5 ML SYRINGE IVP PRN ×2 (08:54→16:00)
[2022-11-17] MEDS ORDERED: ISOSORBIDE MONONITRATE ER 30 MG TAB.ER.24H PO SCH (09:00)
[2022-11-17 09:14] LABS: Basophils % (A) 0 %; Eosinophils # (A) 0.1 k/uL (0-0.7); Eosinophils % (A) 1 %; HCT 33.7 % (39.0-53.0); Lymphocytes # (A) 1.6 k/uL (1.0-4.8); Lymphocytes % (A) 14 %; MCH 30.8 pg (25.0-35.0); MCHC 32.6 g/dL (31.0-37.0); MCV 94.4 fL (80.0-100.0); Mean Platelet Volume 8.6; Monocytes # (A) 1.1 k/uL (0-1.0); Monocytes % (A) 9 %; Neutrophils # (A) 8.6 k/uL (1.3-7.7); Neutrophils % (A) 75 %; Platelet Count 140 k/uL (150-450); RBC 3.57 m/uL (4.30-5.90); RDW 13.1 % (11.5-15.5); WBC 11.5 k/uL (3.8-10.6)
[2022-11-17 09:33] LABS: Calcium 8.6 mg/dL (8.4-10.2); Potassium 5.7 mmol/L (3.5-5.1)
[2022-11-17] MEDS ORDERED: SODIUM CHLORIDE 0.9% 500 ML 200 ML IV ONE (09:39)
[2022-11-17 11:33] VITALS: BMI 33.0
[2022-11-17 11:53] LABS: Glucose,Whole Blood 114 mg/dL (70-110)
[2022-11-17] MEDS ORDERED: SODIUM ZIRCONIUM CYCLOSILICATE 10 GM PACKET PO ONE (11:57)
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
[2022-11-17] MEDS: NYSTATIN 100,000 UNIT/GM POWD 15 GM TOPICAL SCH ×2 (16:00→21:14)
[2022-11-17 16:43] LABS: Glucose,Whole Blood 128 mg/dL (70-110)
--- NOTE | 2022-11-17 17:39 | P.PN ---
Subjective Progress Note Date: 11/17/22 Rubin Quintanilla, is a 77-year-old male patient of Dr. Spence who presented to [facility] emergency room with a chief complaint of generalized weakness and diarrhea for one week. He was evaluated in the emergency room vital examination on presentation revealed a temperature of 97.4 pulse 80 respiration 18 blood pressure 81/53 pulse ox 100% on room air Laboratory data revealed a white blood count of 16.2 hemoglobin 13.4 platelet count 229 sodium 135 potassium 8.4 chloride 111 CO2 15 BUN 68 creatinine 4.12 ( last creatinine available to me at this time is from July 2020 which was 1. 7 prior to that creatinine was 0.9) Testing in the emergency room revealed EKG revealed atrial fibrillation with pattern consistent with pulmonary disease chest x-ray done in the emergency room revealed mild cardiomegaly and no acute cardiopulmonary disease Patient was admitted to medical floor for further evaluation and treatment Past medical history is significant for history of closed head injury, history of coronary artery disease was multiple myocardial infarctions in the past, history of hypertension, history of depression, and history of osteoarthritis. On review of systems patient is alert and oriented 3 in no apparent distress there is no fever or chills no headache or dizziness no chest pain no shortness of breath no cough no nausea or vomiting no abdominal pain no diarrhea and no urinary symptoms. On 11/17/2022 patient was seen and examined on the medical floor he is alert and oriented 3 in no apparent distress he is complaining of abdominal discomfort and diarrhea otherwise he denies any complaints he had significant drop in his hemoglobin from 13.4-11.0 this morning his stool was heme positive, otherwise he denies any complaints there is no fever or chills no headache or dizziness no chest pain no shortness of breath no cough no nausea or vomiting and no urinary symptoms Objective - Vital Signs Vital signs: Vital Signs Temp 98.7 F 11/17/22 08:25 Pulse 104 H 11/17/22 08:25 Resp 16 11/17/22 08:25 BP 82/58 11/17/22 08:25 Pulse Ox 96 11/17/22 08:25 FiO2 Intake & Output 11/16/22 11/17/22 11/17/22 18:59 06:59 18:59 Output Total 400 Balance -400 Weight 113.398 kg 113.398 kg Output: Urine 400 Uretheral (Reddy) 400 Other: Voiding Method Indwelling Catheter Indwelling Catheter # Bowel Movements 1 - Exam Rubin Quintanilla, is a 77-year-old male patient of Dr. Spence who presented to [facility] emergency room with a chief complaint of generalized weakness and diarrhea for one week. He was evaluated in the emergency room vital examination on presentation revealed a temperature of 97.4 pulse 80 respiration 18 blood pressure 81/53 pulse ox 100% on room air Laboratory data revealed a white blood count of 16.2 hemoglobin 13.4 platelet count 229 sodium 135 potassium 8.4 chloride 111 CO2 15 BUN 68 creatinine 4.12 ( last creatinine available to me at this time is from July 2020 which was 1.7 prior to that creatinine was 0.9) Testing in the emergency room revealed EKG revealed atrial fibrillation with pattern consistent with pulmonary disease chest x-ray done in the emergency room revealed mild cardiomegaly and no acute cardiopulmonary disease Patient was admitted to medical floor for further evaluation and treatment Past medical history is significant for history of closed head injury, history of coronary artery disease was multiple myocardial infarctions in the past, history of hypertension, history of depression, and history of osteoarthritis. On review of systems patient is alert and oriented 3 in no apparent distress there is no fever or chills no headache or dizziness no chest pain no shortness of breath no cough no nausea or vomiting no abdominal pain no diarrhea and no urinary symptoms. - Labs CBC & Chem 7: 11/17/22 08:40 11/17/22 14:07 Labs: Abnormal Lab Results - Last 24 Hours (Table) 11/16/22 11/16/22 11/16/22 Range/Units 14:08 14:08 18:11 WBC 16.2 H (3.8-10.6) k/uL RBC (4.30-5.90) m/uL Hgb (13.0-17.5) gm/dL Hct (39.0-53.0) % Plt Count (150-450) k/uL Neutrophils # 13.1 H (1.3-7.7) k/uL Monocytes # 1.2 H (0-1.0) k/uL Sodium 135 L (137-145) mmol/L Potassium 8.4 H* 6.7 H* (3.5-5.1) mmol/L Chloride 111 H (98-107) mmol/L Carbon Dioxide 15 L (22-30) mmol/L BUN 68 H (9-20) mg/dL Creatinine 4.12 H (0.66-1.25) mg/dL Lipase 395 H (23-300) U/L Urine Protein (Negative) Urine Glucose (UA) (Negative) Urine Blood (Negative) Urine RBC (0-5) /hpf Urine Bacteria (None) /hpf Hyaline Casts (0-2) /lpf Urine Mucus (None) /hpf 11/16/22 11/17/22 11/17/22 Range/Units 19:23 08:40 08:40 WBC 11.5 H (3.8-10.6) k/uL RBC 3.57 L (4.30-5.90) m/uL Hgb 11.0 L (13.0-17.5) gm/dL Hct 33.7 L (39.0-53.0) % Plt Count 140 L (150-450) k/uL Neutrophils # 8.6 H (1.3-7.7) k/uL Monocytes # 1.1 H (0-1.0) k/uL Sodium 135 L (137-145) mmol/L Potassium 5.7 H (3.5-5.1) mmol/L Chloride 108 H (98-107) mmol/L Carbon Dioxide 18 L (22-30) mmol/L BUN 65 H (9-20) mg/dL Creatinine 3.07 H (0.66-1.25) mg/dL Lipase (23-300) U/L Urine Protein Trace H (Negative) Urine Glucose (UA) 1+ H (Negative) Urine Blood Moderate H (Negative) Urine RBC 83 H (0-5) /hpf Urine Bacteria Rare H (None) /hpf Hyaline Casts 12 H (0-2) /lpf Urine Mucus Rare H (None) /hpf Assessment and Plan Plan: Gastroenteritis with several days of diarrhea and 1 episode of vomiting, will obtain stool sample for stool culture Dehydration with acute kidney injury likely related to prerenal azotemia Severe hyperkalemia patient received IV dextrose and regular insulin in the emergency room will monitor closely, he also received a dose of Kayexalate in the emergency room Underlying history of coronary artery disease with history of multiple myocardial infarctions in the past Evidence of atrial fibrillation on EKG patient is maintained on Xarelto Underlying history of depression with anxiety disorder maintained on high dose of Paxil At this time patient will be admitted to telemetry floor He was started on IV fluid Home medications were reviewed, at this time will hold lisinopril and Aldactone, and resume metoprolol, Plavix and Xarelto Will recheck labs in a.m. Nephrology and cardiology consultation were requested Gen. surgery consultation requested for GI evaluation of anemia Will follow closely
[2022-11-17] MEDS: ALPRAZolam 0.5 MG TAB PO SCH (21:14)
[2022-11-17] MEDS: CLOPIDOGREL 75 MG TAB PO SCH (21:14)
[2022-11-17] MEDS: DIVALPROEX 500 MG TABLET.DR PO SCH (21:14)
[2022-11-17] MEDS: METOPROLOL TARTRATE 25 MG TAB PO SCH (21:14)
[2022-11-17] MEDS: RIVAROXABAN 15 MG TAB PO SCH (21:14)
[2022-11-17 21:24] LABS: Glucose,Whole Blood 92 mg/dL (70-110)
[2022-11-18 06:35] LABS: Glucose,Whole Blood 83 mg/dL (70-110)
[2022-11-18] MEDS: PANTOPRAZOLE 40 MG TABLET PO SCH (06:43)
[2022-11-18] MEDS: DEXTROSE 5% IN WATER 1,000 ML with SODIUM BICARB (1 MEQ/ML) 150 ML IV SCH (06:43)
[2022-11-18] MEDS: PARoxetine 20 MG TAB PO SCH ×2 (09:10→20:52)
[2022-11-18] MEDS: METOPROLOL TARTRATE 25 MG TAB PO SCH ×2 (09:10→20:53)
[2022-11-18] MEDS: NYSTATIN 100,000 UNIT/GM POWD 15 GM TOPICAL SCH ×2 (09:11→20:53)
[2022-11-18 09:42] LABS: Basophils % (A) 0 %; Eosinophils # (A) 0.1 k/uL (0-0.7); Eosinophils % (A) 2 %; HGB 10.8 gm/dL (13.0-17.5); Lymphocytes # (A) 1.4 k/uL (1.0-4.8); Lymphocytes % (A) 17 %; MCH 30.6 pg (25.0-35.0); MCHC 32.8 g/dL (31.0-37.0); MCV 93.1 fL (80.0-100.0); Mean Platelet Volume 8.9; Monocytes # (A) 0.4 k/uL (0-1.0); Monocytes % (A) 5 %; Neutrophils # (A) 6.4 k/uL (1.3-7.7); Neutrophils % (A) 76 %; Platelet Count 147 k/uL (150-450); RBC 3.54 m/uL (4.30-5.90); RDW 13.4 % (11.5-15.5); WBC 8.5 k/uL (3.8-10.6)
[2022-11-18 09:59] LABS: Calcium 8.1 mg/dL (8.4-10.2); Potassium 4.3 mmol/L (3.5-5.1); Total Bilirubin 0.4 mg/dL (0.2-1.3); Total Protein 5.2 g/dL (6.3-8.2)
[2022-11-18] MEDS: SODIUM CHLORIDE 0.9% 1,000 ML IV SCH (10:14)
[2022-11-18] MEDS ORDERED: BARIUM SULFATE 450 ML ORAL.SUSP BOTTLE PO PRN (10:25)
--- NOTE | 2022-11-18 11:19 | P.PN ---
Subjective Patient is seen for follow-up for acute kidney injury and hyperkalemia. And there was evidence of urine retention along with significant hypotension and hypoperfusion. Patient was also acidotic and is status post bicarb drip. He has an indwelling Reddy catheter Serum creatinine has improved from 4.1 on admission to 2.1 today. No significant complaints Overall patient states he is feeling much better. Objective - Vital Signs Vital signs: Vital Signs Temp 98.8 F 11/18/22 08:00 Pulse 98 11/18/22 08:00 Resp 20 11/18/22 08:00 BP 97/61 11/18/22 08:00 Pulse Ox 99 11/18/22 08:00 FiO2 Intake & Output 11/17/22 11/18/22 11/18/22 18:59 06:59 18:59 Intake Total 660 358 Output Total 625 350 225 Balance 35 -350 133 Weight 113.398 kg Intake: Oral 660 358 Output: Urine 625 350 225 Other: Voiding Method Indwelling Catheter Indwelling Catheter Indwelling Catheter # Bowel Movements 1 - Exam Awake, comfortable, no acute distress Examination of the heart S1 and S2 Examination of the lungs bilateral breath sounds are heard Abdomen is soft nontender Examination of lower extremities shows no evidence of edema [employer] exam grossly intact - Labs CBC & Chem 7: 11/18/22 09:15 11/18/22 09:15 Labs: Abnormal Lab Results - Last 24 Hours (Table) 11/17/22 11/17/22 11/17/22 Range/Units 11:51 14:07 16:37 RBC (4.30-5.90) m/uL Hgb (13.0-17.5) gm/dL Hct (39.0-53.0) % Plt Count (150-450) k/uL Potassium 5.6 H (3.5-5.1) mmol/L BUN (9-20) mg/dL Creatinine (0.66-1.25) mg/dL Glucose (74-99) mg/dL POC Glucose (mg/dL) 114 H 128 H (70-110) mg/dL Calcium (8.4-10.2) mg/dL Total Protein (6.3-8.2) g/dL Albumin (3.5-5.0) g/dL 11/18/22 11/18/22 Range/Units 09:15 09:15 RBC 3.54 L (4.30-5.90) m/uL Hgb 10.8 L (13.0-17.5) gm/dL Hct 33.0 L (39.0-53.0) % Plt Count 147 L (150-450) k/uL Potassium (3.5-5.1) mmol/L BUN 46 H (9-20) mg/dL Creatinine 2.16 H (0.66-1.25) mg/dL Glucose 126 H (74-99) mg/dL POC Glucose (mg/dL) (70-110) mg/dL Calcium 8.1 L (8.4-10.2) mg/dL Total Protein 5.2 L (6.3-8.2) g/dL Albumin 3.0 L (3.5-5.0) g/dL Microbiology - Last 24 Hours (Table) 11/17/22 08:30 Stool Culture - Preliminary Stool Assessment and Plan Assessment: 1. Acute kidney injury, secondary to hypotension and urine retention currently with indwelling Reddy catheter and maintained on IV fluids UA shows trace protein and RBCs 83 suggestive of traumatic specimen. Ultrasound is pending 2. Non-gap metabolic acidosis associated with acute kidney injury and urine retention currently maintained on bicarb drip and improving 3. Hyperkalemia associated with acute kidney injury, urine retention and use of Celebrex along with BLAYNE inhibitor as prior to admission in the setting of hypotension and acute kidney injury. 4. Abdominal pain rule out diverticulitis 5. Hypotension most likely associated with underlying infection status post IV fluid bolus. Continue to hold antihypertensive medications 6. Rule out chronic kidney disease. 7. History of urethral stricture with remote history of palpitation Plan: DC bicarb drip Start normal saline at 75 mL an hour Encourage increased oral intake Follow-up on ultrasound of the kidneys Continue to hold off antihypertensive medications Continue to avoid nephrotoxic agents Repeat labs in a.m.
--- NOTE | 2022-11-18 11:43 | US ---
EXAMINATION TYPE: US kidneys/renal and bladder DATE OF EXAM: 11/18/2022 COMPARISON: CT CLINICAL HISTORY: danielle. DANIELLE EXAM MEASUREMENTS: Right Kidney: 10.1 x 5.3 x 5.2 cm Left Kidney: 9.6 x 4.9 x 4.5 cm Left kidney imaged first due to pt's position Right Kidney: Cyst mid/lateral= 1.1 x 1.0 x 1.2 cm, no evidence of hydro Left Kidney: No evidence of hydro Bladder: Pt has cath in place There is no evidence for hydronephrosis at this point in time. No nephrolithiasis is seen. No rik s are identified. The urinary bladder is anechoic. Reddy catheter in place. IMPRESSION: 1. No evidence of obstructive uropathy. 2. Right simple cyst.
[2022-11-18 11:48] LABS: Glucose,Whole Blood 97 mg/dL (70-110)
--- NOTE | 2022-11-18 11:56 | P.PN ---
Subjective Progress Note Date: 11/18/22 Rubin Quintanilla, is a 77-year-old male patient of Dr. Spence who presented to [facility] emergency room with a chief complaint of generalized weakness and diarrhea for one week. He was evaluated in the emergency room vital examination on presentation revealed a temperature of 97.4 pulse 80 respiration 18 blood pressure 81/53 pulse ox 100% on room air Laboratory data revealed a white blood count of 16.2 hemoglobin 13.4 platelet count 229 sodium 135 potassium 8.4 chloride 111 CO2 15 BUN 68 creatinine 4.12 ( last creatinine available to me at this time is from July 2020 which was 1. 7 prior to that creatinine was 0.9) Testing in the emergency room revealed EKG revealed atrial fibrillation with pattern consistent with pulmonary disease chest x-ray done in the emergency room revealed mild cardiomegaly and no acute cardiopulmonary disease Patient was admitted to medical floor for further evaluation and treatment Past medical history is significant for history of closed head injury, history of coronary artery disease was multiple myocardial infarctions in the past, history of hypertension, history of depression, and history of osteoarthritis. On review of systems patient is alert and oriented 3 in no apparent distress there is no fever or chills no headache or dizziness no chest pain no shortness of breath no cough no nausea or vomiting no abdominal pain no diarrhea and no urinary symptoms. On 11/17/2022 patient was seen and examined on the medical floor he is alert and oriented 3 in no apparent distress he is complaining of abdominal discomfort and diarrhea otherwise he denies any complaints he had significant drop in his hemoglobin from 13.4-11.0 this morning his stool was heme positive, otherwise he denies any complaints there is no fever or chills no headache or dizziness no chest pain no shortness of breath no cough no nausea or vomiting and no urinary symptoms On 11/18/2022 patient is alert and oriented 3. CT of abdomen without contrast had ultrasound of bladder kidney ordered. Creatinine improving to 2.16 bun 46 potassium 4.3. Hemoglobin 10.8. Nephrology, cardiology and surgical services have been consulted Objective - Vital Signs Vital signs: Vital Signs Temp 98.8 F 11/18/22 08:00 Pulse 98 11/18/22 08:00 Resp 20 11/18/22 08:00 BP 97/61 11/18/22 08:00 Pulse Ox 99 11/18/22 08:00 FiO2 Intake & Output 11/17/22 11/18/22 11/18/22 18:59 06:59 18:59 Intake Total 660 358 Output Total 625 350 225 Balance 35 -350 133 Weight 113.398 kg Intake: Oral 660 358 Output: Urine 625 350 225 Other: Voiding Method Indwelling Catheter Indwelling Catheter Indwelling Catheter # Bowel Movements 1 - Exam Rubin Quintanilla, is a 77-year-old male patient of Dr. Spence who presented to [facility] emergency room with a chief complaint of generalized weakness and diarrhea for one week. He was evaluated in the emergency room vital examination on presentation revealed a temperature of 97.4 pulse 80 respiration 18 blood pressure 81/53 pulse ox 100% on room air Laboratory data revealed a white blood count of 16.2 hemoglobin 13.4 platelet count 229 sodium 135 potassium 8.4 chloride 111 CO2 15 BUN 68 creatinine 4.12 ( last creatinine available to me at this time is from July 2020 which was 1.7 prior to that creatinine was 0.9) Testing in the emergency room revealed EKG revealed atrial fibrillation with pattern consistent with pulmonary disease chest x-ray done in the emergency room revealed mild cardiomegaly and no acute cardiopulmonary disease Patient was admitted to medical floor for further evaluation and treatment Past medical history is significant for history of closed head injury, history of coronary artery disease was multiple myocardial infarctions in the past, history of hypertension, history of depression, and history of osteoarthritis. On review of systems patient is alert and oriented 3 in no apparent distress there is no fever or chills no headache or dizziness no chest pain no shortness of breath no cough no nausea or vomiting no abdominal pain no diarrhea and no urinary symptoms. - Labs CBC & Chem 7: 11/18/22 09:15 11/18/22 09:15 Labs: Abnormal Lab Results - Last 24 Hours (Table) 11/17/22 11/17/22 11/17/22 Range/Units 11:51 14:07 16:37 RBC (4.30-5.90) m/uL Hgb (13.0-17.5) gm/dL Hct (39.0-53.0) % Plt Count (150-450) k/uL Potassium 5.6 H (3.5-5.1) mmol/L BUN (9-20) mg/dL Creatinine (0.66-1.25) mg/dL Glucose (74-99) mg/dL POC Glucose (mg/dL) 114 H 128 H (70-110) mg/dL Calcium (8.4-10.2) mg/dL Total Protein (6.3-8.2) g/dL Albumin (3.5-5.0) g/dL 11/18/22 11/18/22 Range/Units 09:15 09:15 RBC 3.54 L (4.30-5.90) m/uL Hgb 10.8 L (13.0-17.5) gm/dL Hct 33.0 L (39.0-53.0) % Plt Count 147 L (150-450) k/uL Potassium (3.5-5.1) mmol/L BUN 46 H (9-20) mg/dL Creatinine 2.16 H (0.66-1.25) mg/dL Glucose 126 H (74-99) mg/dL POC Glucose (mg/dL) (70-110) mg/dL Calcium 8.1 L (8.4-10.2) mg/dL Total Protein 5.2 L (6.3-8.2) g/dL Albumin 3.0 L (3.5-5.0) g/dL Microbiology - Last 24 Hours (Table) 11/17/22 08:30 Stool Culture - Preliminary Stool Assessment and Plan Plan: Gastroenteritis with several days of diarrhea and 1 episode of vomiting, will obtain stool sample for stool culture Dehydration with acute kidney injury likely related to prerenal azotemia Severe hyperkalemia patient received IV dextrose and regular insulin in the emergency room will monitor closely, he also received a dose of Kayexalate in the emergency room Underlying history of coronary artery disease with history of multiple myocardial infarctions in the past Evidence of atrial fibrillation on EKG patient is maintained on Xarelto Underlying history of depression with anxiety disorder maintained on high dose of Paxil At this time patient will be admitted to telemetry floor He was started on IV fluid Home medications were reviewed, at this time will hold lisinopril and Aldactone, and resume metoprolol, Plavix and Xarelto Will recheck labs in a.m. Nephrology and cardiology consultation were requested Gen. surgery consultation requested for GI evaluation of anemia Ultrasound of kidneys ordered CT of abdomen without contrast ordered Will follow closely
--- NOTE | 2022-11-18 13:52 | P.PN ---
Subjective Progress Note Date: 11/18/22 History of present illness: This is a 77-year-old male patient of Dr. GIAN Toth with past medical history of hypertension, hyperlipidemia, acute ST elevation anterior wall myocardial infarction in 2018 status post angioplasty and stenting of a totally occluded nondominant circumflex. Initial echocardiogram at that time revealed ejection fraction of 25-30% and repeat echocardiogram revealed an ejection fraction of 45%. Patient also has history of closed head injury, generalized anxiety disorder, recurrent depression, gastroesophageal reflux disease. We have been asked see the patient for history of coronary artery disease. Patient presented to the hospital after one week of diarrhea. His daughter noticed there was blood in his stool and they decided that he needs come into the hospital for fu rther evaluation. Patient is also having significant difficulty in breathing unable to manage getting a shower easily. He has had decreased appetite only 81 meal per day. He denies having any chest pain. HEENT does have dizziness without loss of consciousness. He denies history of atrial fibrillation denies history of heart failure. He presented with blood pressure of 81/53 and blood pressure remains marginal. EKG is atrial fibrillation with ventricular rate of 79 WBC 16.2, hemoglobin 13.4. Sodium 135, potassium 8.4, chloride 111, CO2 15, BUN 68 creatinine 4.12. Liver function tests normal. Troponin negative 3. ProBNP 407. Lipase 395. Repeat potassium today reveals 5.7, BUN 65 creatinine 3.07. Stool for occult blood positive. Chest x-ray reveals no acute cardiopulmonary disease. Persistent mild cardiomegaly. Erika scan Cardiolite stress test 03/2021 revealed no stress-induced ischemia. Echocardiogram 07/2020 revealed EF of 40-45%, concentric hypertrophy, mild mitral regurgitation, mild tricuspid regurgitation Holter monitor 2018 revealed predominant atrial fibrillation with controlled rate. No significant ventricular ectopy or bradycardia Home cardiac medications: Lipitor 80 mg at bedtime, Plavix 75 mg at bedtime, Imdur 30 mg daily, lisinopril 10 mg at bedtime, Lopressor 50 mg twice daily, Xarelto 15 mg at bedtime, spironolactone 25 mg at bedtime 11/18 There is concern the patient had a stool for occult blood positive and hemoglobin drop to 10.8 from initial 13.4. Xarelto has been placed on hold. Patient denies having any chest pain or shortness of breath. Patient remains in atrial fibrillation, heart rate in the 90s, blood pressure 97/61. Renal function is improving with BUN 46 and creatinine 2.16, potassium 4.3. Echocardiogram is pending. Physical examination: Gen: This is a 77-year-old patient male. He is resting in bed and appears to be fatigued. No acute distress VS: reviewed HEENT: Head is atraumatic, normocephalic. Pupils equal, round. Sclerae is anicteric. NECK: Supple. No JVD. No lymphadenopathy. No thyromegaly. LUNGS: Clear to auscultation. No wheezes or rhonchi. No intercostal retractions. HEART: Irregular rate and rhythm. No murmur. ABDOMEN: Soft. No tenderness. EXTREMITIES: No pedal edema. No calf tenderness. NEUROLOGICAL: Patient is awake, alert and oriented x3. Assessment: Permanent Atrial fibrillation Acute kidney injury Severe hyperkalemia Metabolic acidosis Diarrhea Rule out GI bleed Hypotension secondary to infection and fluid loss History of ST elevated myocardial infarction status post angioplasty and stenting of circumflex artery Hypertension Hyperlipidemia History of closed head injury Plan: Continue to holdImdur, spironolactone, lisinopril due to low blood pressure continueDecreased metoprolol tartrate to 25 mg twice daily Continue other cardiac medications Obtain 2-D echocardiogram and Doppler study to assess cardiac structure and function Further recommendations to follow based upon clinical course Thank you kindly for this consultation. Nurse practitioner note has been reviewed, I agree with documented findings and plan of care. Patient was seen and examined. Objective - Vital Signs Vital signs: Vital Signs Temp 97.9 F 11/18/22 00:00 Pulse 114 H 11/18/22 04:00 Resp 18 11/18/22 04:00 BP 107/70 11/18/22 04:00 Pulse Ox 98 11/18/22 04:00 FiO2 Intake & Output 11/17/22 11/18/22 11/18/22 18:59 06:59 18:59 Intake Total 660 358 Output Total 625 350 225 Balance 35 -350 133 Weight 113.398 kg Intake: Oral 660 358 Output: Urine 625 350 225 Other: Voiding Method Indwelling Catheter Indwelling Catheter # Bowel Movements 1 - Labs CBC & Chem 7: 11/18/22 09:15 11/18/22 09:15 Labs: Abnormal Lab Results - Last 24 Hours (Table) 11/17/22 11/17/22 11/17/22 Range/Units 08:40 08:40 11:51 WBC 11.5 H (3.8-10.6) k/uL RBC 3.57 L (4.30-5.90) m/uL Hgb 11.0 L (13.0-17.5) gm/dL Hct 33.7 L (39.0-53.0) % Plt Count 140 L (150-450) k/uL Neutrophils # 8.6 H (1.3-7.7) k/uL Monocytes # 1.1 H (0-1.0) k/uL Sodium 135 L (137-145) mmol/L Potassium 5.7 H (3.5-5.1) mmol/L Chloride 108 H (98-107) mmol/L Carbon Dioxide 18 L (22-30) mmol/L BUN 65 H (9-20) mg/dL Creatinine 3.07 H (0.66-1.25) mg/dL POC Glucose (mg/dL) 114 H (70-110) mg/dL 11/17/22 11/17/22 Range/Units 14:07 16:37 WBC (3.8-10.6) k/uL RBC (4.30-5.90) m/uL Hgb (13.0-17.5) gm/dL Hct (39.0-53.0) % Plt Count (150-450) k/uL Neutrophils # (1.3-7.7) k/uL Monocytes # (0-1.0) k/uL Sodium (137-145) mmol/L Potassium 5.6 H (3.5-5.1) mmol/L Chloride (98-107) mmol/L Carbon Dioxide (22-30) mmol/L BUN (9-20) mg/dL Creatinine (0.66-1.25) mg/dL POC Glucose (mg/dL) 128 H (70-110) mg/dL Microbiology - Last 24 Hours (Table) 11/17/22 08:30 Stool Culture - Preliminary Stool
[2022-11-18] MEDS ORDERED: PEG 3350 (236 GM/BTL) + LYTES 4,000 ML BOTTLE PO ONE (15:00)
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
--- NOTE | 2022-11-18 15:59 | CT ---
EXAMINATION TYPE: CT abdomen wo con DATE OF EXAM: 11/18/2022 COMPARISON: Kidney ultrasound 11/18/2022 HISTORY: 77-year-old male diarrhea, abdominal pain TECHNIQUE: Contiguous axial scanning of the abdomen without IV contrast. Coronal and sagittal reconst ructions performed. CT DLP: 728.2 mGycm Automated exposure control for dose reduction was used. FINDINGS: Heart borderline in size without pericardial effusion. Prominent strandy atelectasis or scarring in b oth lower lobes without pleural effusion. There is extensive breathing motion artifact in addition to lack of IV contrast further limiting the exam. Noncontrast appearance of the liver, gallbladder, adrenal glands, spleen with small anterior splenule , and pancreas show no gross abnormal body. The kidneys show mild bilateral perinephric stranding that could reflect chronic kidney disease or se nescent change. No hydronephrosis on either side. Tiny 1.1 cm lateral right renal cortical cyst was s een on the ultrasound as well. No dilated small bowel, free fluid, or free air. No mesenteric or retroperitoneal lymphadenopathy. Normal appendix. Scattered mild stool. Oral contrast progressed to the proximal sigmoid colon. No per icolic inflammatory change. Fusiform dilatation right common iliac artery 2.0 cm. Pelvis not imaged. Bones: Advanced hypertrophic facet arthropathy lumbar spine. Degenerative grade 1 anterolisthesis at L4-L5. There is extensive DISH lower thoracic spine. Bulky anterior endplate spondylosis upper to mid lumbar spine. With marked ligamentum flavum flavum thickening, there may be a focal moderate to omi re spinal canal stenosis at L4-L5. IMPRESSION: 1. BORDERLINE SIZED HEART. SOME STRANDY SCARRING OR ATELECTASIS AT THE LUNG BASES. 2. EXAM LIMITED BY PROMINENT BREATHING MOTION ARTIFACT AND LACK OF IV CONTRAST. 3. 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 4. EXTENSIVE DISH. POSSIBLE MODERATE OR SEVERE SPINAL CANAL STENOSIS AT L4-L5. 5. PELVIS NOT IMAGED.
[2022-11-18 17:21] LABS: Glucose,Whole Blood 90 mg/dL (70-110)
[2022-11-18] MEDS: ALPRAZolam 0.5 MG TAB PO SCH (20:52)
[2022-11-18] MEDS: DIVALPROEX 500 MG TABLET.DR PO SCH (20:53)
[2022-11-18 21:30] LABS: Glucose,Whole Blood 84 mg/dL (70-110)
[2022-11-19] MEDS: SODIUM CHLORIDE 0.9% 1,000 ML IV SCH ×3 (00:10→15:54)
[2022-11-19 06:07] LABS: Glucose,Whole Blood 93 mg/dL (70-110)
[2022-11-19 07:31] LABS: Basophils % (A) 0 %; Eosinophils # (A) 0.1 k/uL (0-0.7); Eosinophils % (A) 1 %; HCT 34.5 % (39.0-53.0); HGB 11.3 gm/dL (13.0-17.5); Lymphocytes % (A) 14 %; MCHC 32.7 g/dL (31.0-37.0); MCV 94.7 fL (80.0-100.0); Monocytes # (A) 1.2 k/uL (0-1.0); Monocytes % (A) 8 %; Neutrophils # (A) 11.2 k/uL (1.3-7.7); Neutrophils % (A) 76 %; Platelet Count 178 k/uL (150-450); RBC 3.65 m/uL (4.30-5.90); RDW 13.5 % (11.5-15.5); WBC 14.8 k/uL (3.8-10.6)
[2022-11-19 07:40] LABS: Albumin 3.5 g/dL (3.5-5.0); Calcium 8.4 mg/dL (8.4-10.2); Potassium 5.3 mmol/L (3.5-5.1); Total Bilirubin 0.6 mg/dL (0.2-1.3)
[2022-11-19] MEDS: PANTOPRAZOLE 40 MG TABLET PO SCH (08:40)
[2022-11-19] MEDS: NYSTATIN 100,000 UNIT/GM POWD 15 GM TOPICAL SCH ×2 (08:48→20:15)
[2022-11-19] MEDS: PARoxetine 20 MG TAB PO SCH ×2 (08:48→20:15)
[2022-11-19] MEDS: METOPROLOL TARTRATE 25 MG TAB PO SCH ×2 (08:48→20:15)
[2022-11-19] MEDS ORDERED: IV FLUID CONTINUATION 1,000 ML IV ONE (10:52)
[2022-11-19] MEDS ORDERED: PROPOFOL 10 MG/ML 20 ML VIAL IV ONE (10:54)
[2022-11-19] MEDS ORDERED: LIDOCAINE 2% INJ 20 MG/ML (2 ML VIAL) ONE (10:54)
--- NOTE | 2022-11-19 11:28 | P.OP ---
Date of Procedure: 11/19/22 Preoperative Diagnosis: GI bleed Postoperative Diagnosis: Antral gastritis Diverticulosis No evidence of GI bleed Procedure(s) Performed: EGD Colonoscopy Anesthesia: MAC Surgeon: Domingo Mendosa Pathology: other (Antrum) Condition: stable Disposition: PACU Description of Procedure: The patient's placed on the endoscopy table lateral position. He received IV sedation. The gastroscope placed oropharynx passed in the esophagus into the stomach. Scope was placed through the pylorus. The first and second portion of the duodenum appeared normal. Scope was then brought back the antrum this was minimal inflamed. A biopsies performed. The scope was then retroflexed the remainder the stomach appeared normal. The scope was then retroflexed and the remainder of the stomach appeared normal. The GE junction was at 40 cm. The distal esophagus appeared normal. Proximal esophagus appeared normal. Scope withdrawn for patient. Next digital rectal exam was performed. This revealed no abnormalities.. The flexible colonoscope was then placed patient anus and passed throughout the entire colon. The ileocecal valve was visualized. The cecum, ascending and transverse colon appeared normal. The descending and sigmoid colon was examined. There is some mild diverticular changes. There is no evidence of bleeding seen. Scope was brought back the rectum and this appeared normal. Scope withdrawn for patient. There is no evidence of upper or lower GI bleed seen. The patient may have had bleeding from diverticulum.
--- NOTE | 2022-11-19 14:32 | P.PN ---
Subjective Progress Note Date: 11/19/22 History of present illness: This is a 77-year-old male patient of Dr. GIAN Toth with past medical history of hypertension, hyperlipidemia, acute ST elevation anterior wall myocardial infarction in 2018 status post angioplasty and stenting of a totally occluded nondominant circumflex. Initial echocardiogram at that time revealed ejection fraction of 25-30% and repeat echocardiogram revealed an ejection fraction of 45%. Patient also has history of closed head injury, generalized anxiety disorder, recurrent depression, gastroesophageal reflux disease. We have been asked see the patient for history of coronary artery disease. Patient presented to the hospital after one week of diarrhea. His daughter noticed there was blood in his stool and they decided that he needs come into the hospital for fu rther evaluation. Patient is also having significant difficulty in breathing unable to manage getting a shower easily. He has had decreased appetite only 81 meal per day. He denies having any chest pain. HEENT does have dizziness without loss of consciousness. He denies history of atrial fibrillation denies history of heart failure. He presented with blood pressure of 81/53 and blood pressure remains marginal. EKG is atrial fibrillation with ventricular rate of 79 WBC 16.2, hemoglobin 13.4. Sodium 135, potassium 8.4, chloride 111, CO2 15, BUN 68 creatinine 4.12. Liver function tests normal. Troponin negative 3. ProBNP 407. Lipase 395. Repeat potassium today reveals 5.7, BUN 65 creatinine 3.07. Stool for occult blood positive. Chest x-ray reveals no acute cardiopulmonary disease. Persistent mild cardiomegaly. Erika scan Cardiolite stress test 03/2021 revealed no stress-induced ischemia. Echocardiogram 07/2020 revealed EF of 40-45%, concentric hypertrophy, mild mitral regurgitation, mild tricuspid regurgitation Holter monitor 2018 revealed predominant atrial fibrillation with controlled rate. No significant ventricular ectopy or bradycardia Home cardiac medications: Lipitor 80 mg at bedtime, Plavix 75 mg at bedtime, Imdur 30 mg daily, lisinopril 10 mg at bedtime, Lopressor 50 mg twice daily, Xarelto 15 mg at bedtime, spironolactone 25 mg at bedtime 11/18 There is concern the patient had a stool for occult blood positive and hemoglobin drop to 10.8 from initial 13.4. Xarelto has been placed on hold. Patient denies having any chest pain or shortness of breath. Patient remains in atrial fibrillation, heart rate in the 90s, blood pressure 97/61. Renal function is improving with BUN 46 and creatinine 2.16, potassium 4.3. Echocardiogram is pending. 11/19 Patient is scheduled for colonoscopy today. Hemoglobin is 11.3 and Xarelto remains on hold. BUN is 32 and creatinine 1.3. Blood pressure remains soft 94/63, heart rate 70 to 90s. Echocardiogram is pending. Physical examination: Gen: This is a 77-year-old patient male. He is resting in bed and appears to be fatigued. No acute distress VS: reviewed HEENT: Head is atraumatic, normocephalic. Pupils equal, round. Sclerae is anicteric. NECK: Supple. No JVD. No lymphadenopathy. No thyromegaly. LUNGS: Clear to auscultation. No wheezes or rhonchi. No intercostal retractions. HEART: Irregular rate and rhythm. No murmur. ABDOMEN: Soft. No tenderness. EXTREMITIES: No pedal edema. No calf tenderness. NEUROLOGICAL: Patient is awake, alert and oriented x3. Assessment: Permanent Atrial fibrillation Acute kidney injury Severe hyperkalemia Metabolic acidosis Diarrhea Rule out GI bleed Hypotension secondary to infection and fluid loss History of ST elevated myocardial infarction status post angioplasty and stenting of circumflex artery Hypertension Hyperlipidemia History of closed head injury Plan: Continue to hold Imdur, spironolactone, lisinopril due to low blood pressure Continue decreased metoprolol tartrate to 25 mg twice daily Continue other cardiac medications Obtain 2-D echocardiogram and Doppler study to assess cardiac structure and function Further recommendations to follow based upon clinical course Nurse practitioner note has been reviewed, I agree with documented findings and plan of care. Patient was seen and examined. Objective - Vital Signs Vital signs: Vital Signs Temp 98.8 F 11/19/22 04:00 Pulse 70 11/19/22 04:00 Resp 20 11/19/22 04:00 BP 94/63 11/19/22 04:00 Pulse Ox 95 11/19/22 04:00 FiO2 Intake & Output 11/18/22 11/19/22 11/19/22 18:59 06:59 18:59 Intake Total 538 Output Total 425 300 45 Balance 113 -300 -45 Intake: Oral 538 Output: Urine 425 300 45 Other: Voiding Method Indwelling Catheter Indwelling Catheter # Bowel Movements 5 - Labs CBC & Chem 7: 11/19/22 07:09 11/19/22 07:09 Labs: Abnormal Lab Results - Last 24 Hours (Table) 11/19/22 11/19/22 Range/Units 07:09 07:09 WBC 14.8 H (3.8-10.6) k/uL RBC 3.65 L (4.30-5.90) m/uL Hgb 11.3 L (13.0-17.5) gm/dL Hct 34.5 L (39.0-53.0) % Neutrophils # 11.2 H (1.3-7.7) k/uL Monocytes # 1.2 H (0-1.0) k/uL Potassium 5.3 H (3.5-5.1) mmol/L Chloride 108 H (98-107) mmol/L BUN 32 H (9-20) mg/dL Creatinine 1.83 H (0.66-1.25) mg/dL Glucose 115 H (74-99) mg/dL Total Protein 6.0 L (6.3-8.2) g/dL Microbiology - Last 24 Hours (Table) 11/17/22 08:30 Stool Culture - Preliminary Stool
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
[2022-11-19] MEDS: ALPRAZolam 0.5 MG TAB PO SCH (20:15)
[2022-11-19] MEDS: DIVALPROEX 500 MG TABLET.DR PO SCH (20:15)
[2022-11-20] MEDS: PANTOPRAZOLE 40 MG TABLET PO SCH (06:40)
[2022-11-20] MEDS: METOPROLOL TARTRATE 25 MG TAB PO SCH ×2 (09:09→20:49)
[2022-11-20] MEDS: NYSTATIN 100,000 UNIT/GM POWD 15 GM TOPICAL SCH ×2 (09:09→20:49)
[2022-11-20] MEDS: PARoxetine 20 MG TAB PO SCH ×2 (09:09→20:49)
--- NOTE | 2022-11-20 09:33 | CA ---
Transthoracic Echo Report Name: Rubin Lambert Age: 77 Gender: M : 1945 Exam Date: 11/18/2022 14:13 Exam Location: [place] [facility] Ht (in): 73 Wt (lb): 250 Ordering Physician: Olesya Mina Attending/Referring Phys: [id number], Leopoldo Video Games Mechanic Amarilys Osei RDCS Procedure CPT: Indications: LVF Cardiac Hx: Technical Quality: Fair Contrast 1: Total Dose (mL): Contrast 2: Total Dose (mL): MEASUREMENTS (Male / Female) Normal Values 2D ECHO LV Diastolic Diameter PLAX 4.0 cm 4.2 - 5.9 / 3.9 - 5.3 cm LV Systolic Diameter PLAX 3.0 cm IVS Diastolic Thickness 1.4 cm 0.6 - 1.0 / 0.6 - 0.9 cm LVPW Diastolic Thickness 1.6 cm 0.6 - 1.0 / 0.6 - 0.9 cm LV Relative Wall Thickness 0.7 RV Internal Dim ED PLAX 3.7 cm LA Volume 72.4 cm??? 18 - 58 / 22 - 52 cm??? M-MODE Aortic Root Diameter MM 3.5 cm LA Systolic Diameter MM 5.7 cm LA Ao Ratio MM 1.6 AV Cusp Separation MM 1.8 cm DOPPLER AV Peak Velocity 95.0 cm/s AV Peak Gradient 3.6 mmHg LVOT Peak Velocity 73.0 cm/s LVOT Peak Gradient 2.1 mmHg TR Peak Velocity 124.9 cm/s TR Peak Gradient 6.2 mmHg Right Ventricular Systolic Press 11.2 mmHg FINDINGS Left Ventricle Moderately increased septal wall thickness. Normal left ventricular systolic function with no obvious regional wall motion abnormalities. Left ventricular cavity size normal. Left ventricular ejection fraction is estimated at 50-55 %. Right Ventricle Mild right ventricular dilatation. Right ventricular systolic pressure within normal limits. Right Atrium Normal right atrial size. Left Atrium Moderately increased left atrial volume. Mildly increased left atrial area. Mitral Valve Structurally normal mitral valve. No mitral stenosis, regurgitation or prolapse. Aortic Valve No aortic valve stenosis or regurgitation. Tricuspid Valve Structurally normal tricuspid valve. Mild tricuspid regurgitation. Pulmonic Valve Trace pulmonic regurgitation. Pericardium No pericardial effusion. Aorta Normal size aortic root and proximal ascending aorta. CONCLUSIONS Normal LV systolic function Previewed by: Dr. Aniket Polanco MD (Electronically Signed) Final Date: 20 November 2022 09:32
[2022-11-20 09:47] LABS: Basophils % (A) 0 %; Eosinophils # (A) 0.2 k/uL (0-0.7); Eosinophils % (A) 2 %; HCT 30.8 % (39.0-53.0); HGB 10.1 gm/dL (13.0-17.5); Lymphocytes # (A) 1.3 k/uL (1.0-4.8); Lymphocytes % (A) 13 %; MCHC 32.8 g/dL (31.0-37.0); MCV 94.4 fL (80.0-100.0); Mean Platelet Volume 8.3; Monocytes # (A) 0.9 k/uL (0-1.0); Monocytes % (A) 10 %; Neutrophils # (A) 6.9 k/uL (1.3-7.7); Neutrophils % (A) 73 %; Platelet Count 154 k/uL (150-450); RBC 3.26 m/uL (4.30-5.90); RDW 13.5 % (11.5-15.5); WBC 9.5 k/uL (3.8-10.6)
--- NOTE | 2022-11-20 09:50 | P.PN ---
Subjective Progress Note Date: 11/20/22 Rubin Quintanilla, is a 77-year-old male patient of Dr. Spence who presented to [facility] emergency room with a chief complaint of generalized weakness and diarrhea for one week. He was evaluated in the emergency room vital examination on presentation revealed a temperature of 97.4 pulse 80 respiration 18 blood pressure 81/53 pulse ox 100% on room air Laboratory data revealed a white blood count of 16.2 hemoglobin 13.4 platelet count 229 sodium 135 potassium 8.4 chloride 111 CO2 15 BUN 68 creatinine 4.12 ( last creatinine available to me at this time is from July 2020 which was 1. 7 prior to that creatinine was 0.9) Testing in the emergency room revealed EKG revealed atrial fibrillation with pattern consistent with pulmonary disease chest x-ray done in the emergency room revealed mild cardiomegaly and no acute cardiopulmonary disease Patient was admitted to medical floor for further evaluation and treatment Past medical history is significant for history of closed head injury, history of coronary artery disease was multiple myocardial infarctions in the past, history of hypertension, history of depression, and history of osteoarthritis. On review of systems patient is alert and oriented 3 in no apparent distress there is no fever or chills no headache or dizziness no chest pain no shortness of breath no cough no nausea or vomiting no abdominal pain no diarrhea and no urinary symptoms. On 11/17/2022 patient was seen and examined on the medical floor he is alert and oriented 3 in no apparent distress he is complaining of abdominal discomfort and diarrhea otherwise he denies any complaints he had significant drop in his hemoglobin from 13.4-11.0 this morning his stool was heme positive, otherwise he denies any complaints there is no fever or chills no headache or dizziness no chest pain no shortness of breath no cough no nausea or vomiting and no urinary symptoms On 11/18/2022 patient is alert and oriented 3. CT of abdomen without contrast had ultrasound of bladder kidney ordered. Creatinine improving to 2.16 bun 46 potassium 4.3. Hemoglobin 10.8. Nephrology, cardiology and surgical services have been consulted On 11/19/2022 patient was seen and examined on the telemetry floor he is alert and oriented 3 in no apparent distress, computed tomography scan of the abdomen and pelvis done yesterday reviewed, patient underwent EGD and colonoscopy today that revealed evidence of antral gastritis and diverticulosis, labs are pending today Will continue to monitor closely 11/20/2022 patient is alert and oriented 3. Hemoglobin today 10.1. Awaiting BMP result. This time patient denies chest pain or shortness of breath. Patient denies nausea vomiting or diarrhea. Patient denies any urinary burning or frequency. Objective - Vital Signs Vital signs: Vital Signs Temp 97.9 F 11/20/22 04:00 Pulse 94 11/20/22 04:00 Resp 19 11/20/22 04:00 BP 110/74 11/20/22 04:00 Pulse Ox 98 11/20/22 04:00 FiO2 Intake & Output 11/19/22 11/20/22 11/20/22 18:59 06:59 18:59 Intake Total 620 10 Output Total 645 700 Balance - Intake: IV 200 10 Invasive Line 3 10 Oral 420 Output: Urine 645 700 Other: Voiding Method Indwelling Catheter Indwelling Catheter - Exam Rubin Quintanilla, is a 77-year-old male patient of Dr. Spence who presented to [facility] emergency room with a chief complaint of generalized weakness and diarrhea for one week. He was evaluated in the emergency room vital examination on presentation revealed a temperature of 97.4 pulse 80 respiration 18 blood pressure 81/53 pulse ox 100% on room air Laboratory data revealed a white blood count of 16.2 hemoglobin 13.4 platelet count 229 sodium 135 potassium 8.4 chloride 111 CO2 15 BUN 68 creatinine 4.12 ( last creatinine available to me at this time is from July 2020 which was 1.7 prior to that creatinine was 0.9) Testing in the emergency room revealed EKG revealed atrial fibrillation with pattern consistent with pulmonary disease chest x-ray done in the emergency room revealed mild cardiomegaly and no acute cardiopulmonary disease Patient was admitted to medical floor for further evaluation and treatment Past medical history is significant for history of closed head injury, history of coronary artery disease was multiple myocardial infarctions in the past, history of hypertension, history of depression, and history of osteoarthritis. On review of systems patient is alert and oriented 3 in no apparent distress there is no fever or chills no headache or dizziness no chest pain no shortness of breath no cough no nausea or vomiting no abdominal pain no diarrhea and no urinary symptoms. - Labs CBC & Chem 7: 11/20/22 09:23 11/19/22 07:09 Labs: Abnormal Lab Results - Last 24 Hours (Table) 11/20/22 Range/Units 09:23 RBC 3.26 L (4.30-5.90) m/uL Hgb 10.1 L (13.0-17.5) gm/dL Hct 30.8 L (39.0-53.0) % Microbiology - Last 24 Hours (Table) 11/17/22 08:30 Stool Culture - Final Stool Assessment and Plan Plan: Gastroenteritis with several days of diarrhea and 1 episode of vomiting, will obtain stool sample for stool culture Dehydration with acute kidney injury likely related to prerenal azotemia Severe hyperkalemia patient received IV dextrose and regular insulin in the [facility] room will monitor closely, he also received a dose of Kayexalate in the emergency room Underlying history of coronary artery disease with history of multiple myocardial infarctions in the past Evidence of atrial fibrillation on EKG patient is maintained on Xarelto Underlying history of depression with anxiety disorder maintained on high dose of Paxil At this time patient will be admitted to telemetry floor He was started on IV fluid Home medications were reviewed, at this time will hold lisinopril and Aldactone, and resume metoprolol, Plavix and Xarelto Will recheck labs in a.m. Nephrology and cardiology consultation were requested Infectious disease service is consulted Gen. surgery consultation requested for GI evaluation of anemia Status post EGD on 11/19/2022 Will follow closely
[2022-11-20 10:00] LABS: Albumin 2.9 g/dL (3.5-5.0); Calcium 7.9 mg/dL (8.4-10.2); Magnesium 1.3 mg/dL (1.6-2.3); Potassium 4.4 mmol/L (3.5-5.1); Total Bilirubin 0.2 mg/dL (0.2-1.3); Total Protein 5.1 g/dL (6.3-8.2)
[2022-11-20] MEDS ORDERED: Magnesium Replacement Protocol 1 EACH MISC MISCELLANE PRN (10:30)
[2022-11-20] MEDS: MAGNESIUM SULFATE-D5W PMX 1 GM in DEXTROSE/WATER 1 100ML.BAG IVPB SCH ×3 (10:42→14:20)
--- NOTE | 2022-11-20 13:16 | P.PN ---
Subjective Progress Note Date: 11/20/22 History of present illness: This is a 77-year-old male patient of Dr. GIAN Toth with past medical history of hypertension, hyperlipidemia, acute ST elevation anterior wall myocardial infarction in 2018 status post angioplasty and stenting of a totally occluded nondominant circumflex. Initial echocardiogram at that time revealed ejection fraction of 25-30% and repeat echocardiogram revealed an ejection fraction of 45%. Patient also has history of closed head injury, generalized anxiety disorder, recurrent depression, gastroesophageal reflux disease. We have been asked see the patient for history of coronary artery disease. Patient presented to the hospital after one week of diarrhea. His daughter noticed there was blood in his stool and they decided that he needs come into the hospital for fu rther evaluation. Patient is also having significant difficulty in breathing unable to manage getting a shower easily. He has had decreased appetite only 81 meal per day. He denies having any chest pain. HEENT does have dizziness without loss of consciousness. He denies history of atrial fibrillation denies history of heart failure. He presented with blood pressure of 81/53 and blood pressure remains marginal. EKG is atrial fibrillation with ventricular rate of 79 WBC 16.2, hemoglobin 13.4. Sodium 135, potassium 8.4, chloride 111, CO2 15, BUN 68 creatinine 4.12. Liver function tests normal. Troponin negative 3. ProBNP 407. Lipase 395. Repeat potassium today reveals 5.7, BUN 65 creatinine 3.07. Stool for occult blood positive. Chest x-ray reveals no acute cardiopulmonary disease. Persistent mild cardiomegaly. Erika scan Cardiolite stress test 03/2021 revealed no stress-induced ischemia. Echocardiogram 07/2020 revealed EF of 40-45%, concentric hypertrophy, mild mitral regurgitation, mild tricuspid regurgitation Holter monitor 2018 revealed predominant atrial fibrillation with controlled rate. No significant ventricular ectopy or bradycardia Home cardiac medications: Lipitor 80 mg at bedtime, Plavix 75 mg at bedtime, Imdur 30 mg daily, lisinopril 10 mg at bedtime, Lopressor 50 mg twice daily, Xarelto 15 mg at bedtime, spironolactone 25 mg at bedtime 11/18 There is concern the patient had a stool for occult blood positive and hemoglobin drop to 10.8 from initial 13.4. Xarelto has been placed on hold. Patient denies having any chest pain or shortness of breath. Patient remains in atrial fibrillation, heart rate in the 90s, blood pressure 97/61. Renal function is improving with BUN 46 and creatinine 2.16, potassium 4.3. Echocardiogram is pending. 11/19 Patient is scheduled for colonoscopy today. Hemoglobin is 11.3 and Xarelto remains on hold. BUN is 32 and creatinine 1.3. Blood pressure remains soft 94/63, heart rate 70 to 90s. Echocardiogram is pending. 11/20 Patient has had no blood in his stools. Xarelto has been on hold. Repeat hemoglobin is 10.1, BUN 28 creatinine 1.68 and potassium 4.4. Heart rate is in the 60s to 90, blood pressure 112/60, pulse ox 98% on room air. Echocardiogram reveals normal LV systolic function. Physical examination: Gen: This is a 77-year-old patient male. He is resting in bed and appears to be fatigued. No acute distress VS: reviewed HEENT: Head is atraumatic, normocephalic. Pupils equal, round. Sclerae is anicteric. NECK: Supple. No JVD. No lymphadenopathy. No thyromegaly. LUNGS: Clear to auscultation. No wheezes or rhonchi. No intercostal retractions. HEART: Irregular rate and rhythm. No murmur. ABDOMEN: Soft. No tenderness. EXTREMITIES: No pedal edema. No calf tenderness. NEUROLOGICAL: Patient is awake, alert and oriented x3. Assessment: Permanent Atrial fibrillation Acute kidney injury Severe hyperkalemia Metabolic acidosis Diarrhea Rule out GI bleed Hypotension secondary to infection and fluid loss History of ST elevated myocardial infarction status post angioplasty and sten ting of circumflex artery Hypertension Hyperlipidemia History of closed head injury Plan: Continue to hold Imdur, spironolactone, lisinopril due to low blood pressure Continue decreased metoprolol tartrate to 25 mg twice daily Continue other cardiac medications Regarding anticoagulation, patient name be resumed on eliquis 2.5 mg twice daily once cleared by general surgery Discontinue Plavix Patient is cleared for discharge from cardiology. Nurse practitioner note has been reviewed, I agree with documented findings and plan of care. Patient was seen and examined. Objective - Vital Signs Vital signs: Vital Signs Temp 97.9 F 11/20/22 04:00 Pulse 94 11/20/22 04:00 Resp 19 11/20/22 04:00 BP 110/74 11/20/22 04:00 Pulse Ox 98 11/20/22 04:00 FiO2 Intake & Output 11/19/22 11/20/22 11/20/22 18:59 06:59 18:59 Intake Total 620 10 Output Total 645 700 Balance -25 -690 Intake: IV 200 10 Invasive Line 3 10 Oral 420 Output: Urine 645 700 Other: Voiding Method Indwelling Catheter Indwelling Catheter - Labs CBC & Chem 7: 11/20/22 09:23 11/20/22 09:23 Labs: Microbiology - Last 24 Hours (Table) 11/17/22 08:30 Stool Culture - Final Stool
--- NOTE | 2022-11-20 13:25 | P.PN ---
Subjective Progress Note Date: 11/20/22 CHIEF COMPLAINT: GI bleed HISTORY OF PRESENT ILLNESS: Patient is status post EGD and colonoscopy revealing antral gastritis and diverticulosis. No evidence of GI bleed. It is presumed that the bleeding is from the diverticulum. Patient has had no further bleeding. Hemoglobin is down from 11.3-10.1. Patient seen and examined with Dr. Mendosa PHYSICAL EXAM: VITAL SIGNS: Reviewed. GENERAL: Well-developed in no acute distress. HEENT: No sclera icterus. Extraocular movements grossly intact. Moist buccal mucosa. Head is atraumatic, normocephalic. ABDOMEN: Soft. Nondistended. Nontender. NEUROLOGIC: Alert and oriented. Cranial nerves II through XII grossly intact. ASSESSMENT: 1. Acute GI bleed with bloody diarrhea and on Xarelto on Plavix 2. Acute kidney injury 3. Hyperkalemia improved PLAN: -Patient can be discharged from surgical standpoint when medically cleared -Okay to start Eliquis from surgical site -Continue to monitor for any signs of bleeding -Continue PPI Physician Banking Services Clerk note has been reviewed by physician. Signing provider agrees with the documented findings, assessment, and plan of care. Objective - Vital Signs Vital signs: Vital Signs Temp 98.0 F 11/20/22 08:00 Pulse 68 11/20/22 08:00 Resp 18 11/20/22 08:00 BP 112/60 11/20/22 08:00 Pulse Ox 98 11/20/22 08:00 FiO2 Intake & Output 11/19/22 11/20/22 11/20/22 18:59 06:59 18:59 Intake Total 620 10 118 Output Total 645 700 Balance -25 -690 118 Intake: IV 200 10 Invasive Line 3 10 Oral 420 118 Output: Urine 645 700 Other: Voiding Method Indwelling Catheter Indwelling Catheter Indwelling Catheter - Labs CBC & Chem 7: 11/20/22 09:23 11/20/22 09:23 Labs: Abnormal Lab Results - Last 24 Hours (Table) 11/20/22 11/20/22 Range/Units 09:23 09:23 RBC 3.26 L (4.30-5.90) m/uL Hgb 10.1 L (13.0-17.5) gm/dL Hct 30.8 L (39.0-53.0) % Chloride 110 H (98-107) mmol/L BUN 28 H (9-20) mg/dL Creatinine 1.68 H (0.66-1.25) mg/dL Calcium 7.9 L (8.4-10.2) mg/dL Magnesium 1.3 L (1.6-2.3) mg/dL Total Protein 5.1 L (6.3-8.2) g/dL Albumin 2.9 L (3.5-5.0) g/dL Microbiology - Last 24 Hours (Table) 11/17/22 08:30 Stool Culture - Final Stool
[2022-11-20] MEDS: ACETAMINOPHEN TAB 325 MG TAB PO PRN ×2 (14:19→20:55)
[2022-11-20] MEDS: SODIUM CHLORIDE 0.9% 1,000 ML IV SCH (15:18)
--- NOTE | 2022-11-20 17:47 | P.PN ---
Subjective Patient is seen for follow-up for acute kidney injury and hyperkalemia. And there was evidence of urine retention along with significant hypotension and hypoperfusion. Patient was also acidotic and is status post bicarb drip. He has an indwelling Glez catheter Serum creatinine has improved from 4.1 on admission to 1.6 today. No significant complaints Overall patient states he is feeling much better. Objective - Vital Signs Vital signs: Vital Signs Temp 98.1 F 11/20/22 16:00 Pulse 90 11/20/22 16:00 Resp 18 11/20/22 16:00 BP 93/56 11/20/22 16:00 Pulse Ox 98 11/20/22 16:00 FiO2 Intake & Output 11/19/22 11/20/22 11/20/22 18:59 06:59 18:59 Intake Total 620 10 776 Output Total 645 700 425 Balance -25 -690 351 Intake: IV 200 10 Invasive Line 3 10 Oral 420 776 Output: Urine 645 700 425 Other: Voiding Method Indwelling Catheter Indwelling Catheter Indwelling Catheter - Exam Awake, comfortable, no acute distress Examination of the heart S1 and S2 Examination of the lungs bilateral breath sounds are heard Abdomen is soft nontender Examination of lower extremities shows no evidence of edema GRINDING WHEEL OPERATOR exam grossly intact - Labs CBC & Chem 7: 11/20/22 09:23 11/20/22 09:23 Labs: Abnormal Lab Results - Last 24 Hours (Table) 11/20/22 11/20/22 Range/Units 09:23 09:23 RBC 3.26 L (4.30-5.90) m/uL Hgb 10.1 L (13.0-17.5) gm/dL Hct 30.8 L (39.0-53.0) % Chloride 110 H (98-107) mmol/L BUN 28 H (9-20) mg/dL Creatinine 1.68 H (0.66-1.25) mg/dL Calcium 7.9 L (8.4-10.2) mg/dL Magnesium 1.3 L (1.6-2.3) mg/dL Total Protein 5.1 L (6.3-8.2) g/dL Albumin 2.9 L (3.5-5.0) g/dL Microbiology - Last 24 Hours (Table) 11/17/22 08:30 Stool Culture - Final Stool Assessment and Plan Assessment: 1. Acute kidney injury, secondary to hypotension and urine retention currently with indwelling Glez catheter and maintained on IV fluids UA shows trace protein and RBCs 83 suggestive of traumatic specimen. Ultrasound shows no obstruction. 2. Non-gap metabolic acidosis associated with acute kidney injury and urine retention currently maintained on bicarb drip and improving 3. Hyperkalemia associated with acute kidney injury, urine retention and use of Celebrex along with BLAYNE inhibitor as prior to admission in the setting of hypotension and acute kidney injury. 4. Abdominal pain rule out diverticulitis 5. Hypotension most likely associated with underlying infection status post IV fluid bolus. Continue to hold antihypertensive medications 6. Rule out chronic kidney disease. 7. History of urethral stricture with remote history of dilatation. 8. Acute GI bleed s/p EGD and colonoscopy which showed antral gastritis and diverticulosis. Plan: Continue to encourage increased oral intake. Continue with glez catheter.
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
[2022-11-20] MEDS: ALPRAZolam 0.5 MG TAB PO SCH (20:49)
[2022-11-20] MEDS: APIXABAN 2.5 MG TABLET PO SCH (20:49)
[2022-11-20] MEDS: DIVALPROEX 500 MG TABLET.DR PO SCH (20:49)
[2022-11-21] MEDS: SODIUM CHLORIDE 0.9% 1,000 ML IV SCH (06:29)
[2022-11-21] MEDS: PANTOPRAZOLE 40 MG TABLET PO SCH (06:49)
[2022-11-21 07:13] LABS: Basophils % (A) 0 %; Eosinophils # (A) 0.2 k/uL (0-0.7); Eosinophils % (A) 3 %; HGB 9.9 gm/dL (13.0-17.5); Lymphocytes # (A) 1.7 k/uL (1.0-4.8); Lymphocytes % (A) 19 %; MCHC 32.8 g/dL (31.0-37.0); MCV 94.4 fL (80.0-100.0); Mean Platelet Volume 8.2; Monocytes # (A) 0.8 k/uL (0-1.0); Monocytes % (A) 9 %; Neutrophils # (A) 5.7 k/uL (1.3-7.7); Neutrophils % (A) 67 %; Platelet Count 159 k/uL (150-450); RBC 3.18 m/uL (4.30-5.90); RDW 13.4 % (11.5-15.5); WBC 8.6 k/uL (3.8-10.6)
[2022-11-21 07:28] LABS: Albumin 2.7 g/dL (3.5-5.0); C Reactive Protein 2.6 mg/dL (<1.0); Calcium 8.1 mg/dL (8.4-10.2); Magnesium 1.9 mg/dL (1.6-2.3); Potassium 4.2 mmol/L (3.5-5.1); Total Bilirubin 0.2 mg/dL (0.2-1.3); Total Protein 4.9 g/dL (6.3-8.2)
[2022-11-21 08:33] LABS: Erythrocyte Sedimentation Rate 18 mm/hr (0-15)
[2022-11-21] MEDS: APIXABAN 2.5 MG TABLET PO SCH ×2 (09:24→20:48)
[2022-11-21] MEDS: PARoxetine 20 MG TAB PO SCH ×2 (09:25→20:48)
[2022-11-21] MEDS: NYSTATIN 100,000 UNIT/GM POWD 15 GM TOPICAL SCH ×2 (09:25→20:49)
[2022-11-21] MEDS: METOPROLOL TARTRATE 25 MG TAB PO SCH ×2 (09:25→20:48)
[2022-11-21] MEDS: ACETAMINOPHEN TAB 325 MG TAB PO PRN ×2 (09:26→20:49)
--- NOTE | 2022-11-21 10:40 | P.PN ---
Subjective Patient is seen for follow-up for acute kidney injury and hyperkalemia. And there was evidence of urine retention along with significant hypotension and hypoperfusion. Patient was also acidotic and is status post bicarb drip. He has an indwelling Glez catheter Serum creatinine has improved from 4.1 on admission to 1.5 today. No significant complaints Overall patient states he is feeling much better. Objective - Vital Signs Vital signs: Vital Signs Temp 98 F 11/21/22 09:20 Pulse 94 11/21/22 09:20 Resp 18 11/21/22 09:20 BP 91/57 11/21/22 09:20 Pulse Ox 98 11/21/22 09:20 FiO2 Intake & Output 11/20/22 11/21/22 11/21/22 18:59 06:59 18:59 Intake Total 894 240 Output Total 425 600 700 Balance 469 -600 -460 Intake: Oral 894 240 Output: Urine 425 600 700 Other: Voiding Method Indwelling Catheter Indwelling Catheter Indwelling Catheter # Bowel Movements 1 - Exam Awake, comfortable, no acute distress Examination of the heart S1 and S2 Examination of the lungs bilateral breath sounds are heard Abdomen is soft nontender Examination of lower extremities shows no evidence of edema 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 Acute kidney injury, secondary to hypotension and urine retention currently with indwelling Glez catheter and maintained on IV fluids UA shows trace protein and RBCs 83 suggestive of traumatic specimen. Ultrasound shows no obstruction. 2. Non-gap metabolic acidosis associated with acute kidney injury and urine retention, status post bicarb drip and improved 3. Hyperkalemia associated with acute kidney injury, urine retention and use of Celebrex along with BLAYNE inhibitor as prior to admission in the setting of hypotension and acute kidney injury. 4. Abdominal pain rule out diverticulitis 5. Hypotension most likely associated with underlying infection status post IV fluid bolus. Continue to hold antihypertensive medications 6. Rule out chronic kidney disease. 7. History of urethral stricture with remote history of dilatation. 8. Acute GI bleed s/p EGD and colonoscopy which showed antral gastritis and diverticulosis. Plan: Continue to encourage increased oral intake. Continue with glez catheter. DC IV fluids
--- NOTE | 2022-11-21 11:55 | P.PN ---
Subjective Progress Note Date: 11/21/22 Principal diagnosis: Leukocytosis Patient is a 77-year-old male with a past medical history significant for coronary artery disease hypertension hyperlipidemia seizure disorder guarded presented to the hospital on 11/16/2022 for evaluation of diarrhea for about a week and also started having some bright red blood in the stools, patient did see the abdominal pelvis did not show any colitis EGD colonoscopy did shows evidence of gastritis" across his but no diverticulitis. On today's evaluation that is 11/21/2022, the patient denies having any fevers or any chills patient is breathing comfortably on room air, patient denies having any chest pain shortness of breath or cough no abdominal pain no diarrhea and no further bleeding per rectum Objective - Vital Signs Vital signs: Vital Signs Temp 98 F 11/21/22 09:20 Pulse 94 11/21/22 09:20 Resp 18 11/21/22 09:20 BP 91/57 11/21/22 09:20 Pulse Ox 98 11/21/22 09:20 FiO2 Intake & Output 11/20/22 11/21/22 11/21/22 18:59 06:59 18:59 Intake Total 894 240 Output Total 425 600 700 Balance 469 600 -460 Intake: Oral 894 240 Output: Urine 425 600 700 Other: Voiding Method Indwelling Catheter Indwelling Catheter Indwelling Catheter # Bowel Movements 1 - Exam GENERAL DESCRIPTION: An elderly male lying in bed in no distress RESPIRATORY SYSTEM: Unlabored breathing , decreased breath sounds at bases HEART: S1 S2 regular rate and rhythm , ABDOMEN: Soft , no tenderness EXTREMITIES: No edema feet - Labs CBC & Chem 7: 11/21/22 06:23 11/21/22 06:23 Labs: Abnormal Lab Results - Last 24 Hours (Table) 11/21/22 11/21/22 Range/Units 06:23 06:23 RBC 3.18 L (4.30-5.90) m/uL Hgb 9.9 L (13.0-17.5) gm/dL Hct 30.0 L (39.0-53.0) % ESR 18 H (0-15) mm/hr Chloride 110 H (98-107) mmol/L BUN 24 H (9-20) mg/dL Creatinine 1.52 H (0.66-1.25) mg/dL Calcium 8.1 L (8.4-10.2) mg/dL C-Reactive Protein 2.6 H (<1.0) mg/dL Total Protein 4.9 L (6.3-8.2) g/dL Albumin 2.7 L (3.5-5.0) g/dL Microbiology - Last 24 Hours (Table) 11/17/22 08:30 Stool Culture - Final Stool Assessment and Plan (1) Leukocytosis Current Visit: Yes Status: Acute Code(s): D72.829 - ELEVATED WHITE BLOOD CELL COUNT, UNSPECIFIED SNOMED Code(s): 068440397 Plan: 1patient with leukocytosis which is more likely related to his GI bleed as tanner olivas did present with the bright red blood per rectum patient did have some diarrhea however there was evidence of any colitis on the CT and currently no other obvious focus of infection and the patient white count has normalized without antibiotic therapy 2 his inflammatory markers are not significantly elevated with a sed rate of only 18 and the patient remains to be afebrile we will monitor the patient closely off antibiotic therapy Family at the bedside questions concerned were answered Time with Patient: Less than 30
--- NOTE | 2022-11-21 13:30 | P.PN ---
Subjective Progress Note Date: 11/21/22 Rubin Quintanilla, is a 77-year-old male patient of Dr. Spence who presented to [facility] emergency room with a chief complaint of generalized weakness and diarrhea for one week. He was evaluated in the emergency room vital examination on presentation revealed a temperature of 97.4 pulse 80 respiration 18 blood pressure 81/53 pulse ox 100% on room air Laboratory data revealed a white blood count of 16.2 hemoglobin 13.4 platelet count 229 sodium 135 potassium 8.4 chloride 111 CO2 15 BUN 68 creatinine 4.12 ( last creatinine available to me at this time is from July 2020 which was 1. 7 prior to that creatinine was 0.9) Testing in the emergency room revealed EKG revealed atrial fibrillation with pattern consistent with pulmonary disease chest x-ray done in the emergency room revealed mild cardiomegaly and no acute cardiopulmonary disease Patient was admitted to medical floor for further evaluation and treatment Past medical history is significant for history of closed head injury, history of coronary artery disease was multiple myocardial infarctions in the past, history of hypertension, history of depression, and history of osteoarthritis. On review of systems patient is alert and oriented 3 in no apparent distress there is no fever or chills no headache or dizziness no chest pain no shortness of breath no cough no nausea or vomiting no abdominal pain no diarrhea and no urinary symptoms. On 11/17/2022 patient was seen and examined on the medical floor he is alert and oriented 3 in no apparent distress he is complaining of abdominal discomfort and diarrhea otherwise he denies any complaints he had significant drop in his hemoglobin from 13.4-11.0 this morning his stool was heme positive, otherwise he denies any complaints there is no fever or chills no headache or dizziness no chest pain no shortness of breath no cough no nausea or vomiting and no urinary symptoms On 11/18/2022 patient is alert and oriented 3. CT of abdomen without contrast had ultrasound of bladder kidney ordered. Creatinine improving to 2.16 bun 46 potassium 4.3. Hemoglobin 10.8. Nephrology, cardiology and surgical services have been consulted On 11/19/2022 patient was seen and examined on the telemetry floor he is alert and oriented 3 in no apparent distress, computed tomography scan of the abdomen and pelvis done yesterday reviewed, patient underwent EGD and colonoscopy today that revealed evidence of antral gastritis and diverticulosis, labs are pending today Will continue to monitor closely 11/20/2022 patient is alert and oriented 3. Hemoglobin today 10.1. Awaiting BMP result. This time patient denies chest pain or shortness of breath. Patient denies nausea vomiting or diarrhea. Patient denies any urinary burning or frequency. On 11/21/2022 patient was seen and examined on the medical floor he is alert and oriented 3 in no apparent distress dizziness no chest pain no shortness of breath no cough no nausea or vomiting no abdominal pain no diarrhea symptoms, kidney function is improving gradually, continue with current management plan is to transfer to [facility] on Wednesday Objective - Vital Signs Vital signs: Vital Signs Temp 97.2 F L 11/21/22 12:10 Pulse 85 11/21/22 12:10 Resp 18 11/21/22 12:10 BP 108/70 11/21/22 12:10 Pulse Ox 98 11/21/22 12:10 FiO2 Intake & Output 11/20/22 11/21/22 11/21/22 18:59 06:59 18:59 Intake Total 894 240 Output Total 425 600 700 Balance 469 -600 -460 Intake: Oral 894 240 Output: Urine 425 600 700 Other: Voiding Method Indwelling Catheter Indwelling Catheter Indwelling Catheter # Bowel Movements 1 - Exam Rubin Quintanilla, is a 77-year-old male patient of Dr. Spence who presented to [facility] emergency room with a chief complaint of generalized weakness and diarrhea for one week. He was evaluated in the emergency room vital examination on presentation revealed a temperature of 97.4 pulse 80 respiration 18 blood pressure 81/53 pulse ox 100% on room air Laboratory data revealed a white blood count of 16.2 hemoglobin 13.4 platelet count 229 sodium 135 potassium 8.4 chloride 111 CO2 15 BUN 68 creatinine 4.12 ( last creatinine available to me at this time is from July 2020 which was 1.7 prior to that creatinine was 0.9) Testing in the emergency room revealed EKG revealed atrial fibrillation with pattern consistent with pulmonary disease chest x-ray done in the emergency room revealed mild cardiomegaly and no acute cardiopulmonary disease Patient was admitted to medical floor for further evaluation and treatment Past medical history is significant for history of closed head injury, history of coronary artery disease was multiple myocardial infarctions in the past, history of hypertension, history of depression, and history of osteoarthritis. On review of systems patient is alert and oriented 3 in no apparent distress there is no fever or chills no headache or dizziness no chest pain no shortness of breath no cough no nausea or vomiting no abdominal pain no diarrhea and no urinary symptoms. - Labs CBC & Chem 7: 11/21/22 06:23 11/21/22 06:23 Labs: Abnormal Lab Results - Last 24 Hours (Table) 11/21/22 11/21/22 Range/Units 06:23 06:23 RBC 3.18 L (4.30-5.90) m/uL Hgb 9.9 L (13.0-17.5) gm/dL Hct 30.0 L (39.0-53.0) % ESR 18 H (0-15) mm/hr Chloride 110 H (98-107) mmol/L BUN 24 H (9-20) mg/dL Creatinine 1.52 H (0.66-1.25) mg/dL Calcium 8.1 L (8.4-10.2) mg/dL C-Reactive Protein 2.6 H (<1.0) mg/dL Total Protein 4.9 L (6.3-8.2) g/dL Albumin 2.7 L (3.5-5.0) g/dL Microbiology - Last 24 Hours (Table) 11/17/22 08:30 Stool Culture - Final Stool Assessment and Plan Plan: Gastroenteritis with several days of diarrhea and 1 episode of vomiting, will o btain stool sample for stool culture Dehydration with acute kidney injury likely related to prerenal azotemia Severe hyperkalemia patient received IV dextrose and regular insulin in the emergency room will monitor closely, he also received a dose of Kayexalate in the emergency room Underlying history of coronary artery disease with history of multiple myocardial infarctions in the past Evidence of atrial fibrillation on EKG patient is maintained on Xarelto Underlying history of depression with anxiety disorder maintained on high dose of Paxil At this time patient will be admitted to telemetry floor He was started on IV fluid Home medications were reviewed, at this time will hold lisinopril and Aldactone, and resume metoprolol, Plavix and Xarelto Will recheck labs in a.m. Nephrology and cardiology consultation were requested Infectious disease service is consulted Gen. surgery consultation requested for GI evaluation of anemia Status post EGD on 11/19/2022 Will follow closely
--- NOTE | 2022-11-21 14:54 | P.PN ---
Subjective Progress Note Date: 11/21/22 CHIEF COMPLAINT: GI bleed HISTORY OF PRESENT ILLNESS: The patient is a 77-year-old male on chronic ant icoagulants and antiplatelet therapy presented with GI bleed. He completed both upper and lower endoscopy. No signs of bleeding. He is resting comfortably. ROS: No reports of nausea and vomiting. No bowel movements. No fevers or chills. No new chest pain. No productive sputum. Chronic antiplatelet and chronic anticoagulant use with GI bleed. PHYSICAL EXAM: VITAL SIGNS: Reviewed CONSTITUTIONAL: Well developed and in no acute distress. EYES: Conjuctivae without sclera icterus. Extraocular movements grossly intact. HEAD, EARS, NOSE, THROAT: Moist buccal mucosa. Head is atraumatic, normocephalic. Hears conversational speech. No nasal drainage. RESPIRATORY: Non-labored respirations and equal bilateral excursions. CARDIOVASCULAR: Palpable 2+ radial pulses. ABDOMEN: Nontender. MUSCULOSKELETAL: No gross deformity of the lower extremities noted. No clubbing. No cyanosis. SKIN: Good skin turgor. Well perfused. NEUROLOGIC: Cranial nerves II through XII grossly intact. No known focal or lateralizing signs. PSYCH: Appropriate affect. CLINICAL LABS: Reviewed. Hemoglobin stable 10.1-9.9. ASSESSMENT: 1. Gastrointestinal bleeding with anemia 2. Chronic antiplatelet use 3. Chronic anticoagulant use PLAN: 1. Monitor hemoglobin. 2. Diet as tolerated. Objective - Vital Signs Vital signs: Vital Signs Temp 98 F 11/21/22 09:20 Pulse 94 11/21/22 09:20 Resp 18 11/21/22 09:20 BP 91/57 11/21/22 09:20 Pulse Ox 98 11/21/22 09:20 FiO2 Intake & Output 11/20/22 11/21/22 11/21/22 18:59 06:59 18:59 Intake Total 894 240 Output Total 425 600 700 Balance 469 -600 -460 Intake: Oral 894 240 Output: Urine 425 600 700 Other: Voiding Method Indwelling Catheter Indwelling Catheter Indwelling Catheter # Bowel Movements 1 - Labs CBC & Chem 7: 11/21/22 06:23 11/21/22 06:23 Labs: Abnormal Lab Results - Last 24 Hours (Table) 11/21/22 11/21/22 Range/Units 06:23 06:23 RBC 3.18 L (4.30-5.90) m/uL Hgb 9.9 L (13.0-17.5) gm/dL Hct 30.0 L (39.0-53.0) % ESR 18 H (0-15) mm/hr Chloride 110 H (98-107) mmol/L BUN 24 H (9-20) mg/dL Creatinine 1.52 H (0.66-1.25) mg/dL Calcium 8.1 L (8.4-10.2) mg/dL C-Reactive Protein 2.6 H (<1.0) mg/dL Total Protein 4.9 L (6.3-8.2) g/dL Albumin 2.7 L (3.5-5.0) g/dL Microbiology - Last 24 Hours (Table) 11/17/22 08:30 Stool Culture - Final Stool
[2022-11-21] MEDS: ACETAMINOPHEN TAB 500 MG TAB PO SCH ×2 (16:54→23:48)
[2022-11-21] MEDS: ALPRAZolam 0.5 MG TAB PO SCH (20:48)
[2022-11-21] MEDS: DIVALPROEX 500 MG TABLET.DR PO SCH (20:48)
[2022-11-22] MEDS: ACETAMINOPHEN TAB 325 MG TAB PO PRN (04:19)
[2022-11-22] MEDS: PANTOPRAZOLE 40 MG TABLET PO SCH (06:04)
[2022-11-22 06:05] LABS: Basophils % (A) 0 %; Eosinophils # (A) 0.3 k/uL (0-0.7); Eosinophils % (A) 4 %; HCT 31.7 % (39.0-53.0); HGB 10.3 gm/dL (13.0-17.5); Lymphocytes # (A) 1.8 k/uL (1.0-4.8); Lymphocytes % (A) 21 %; MCH 30.4 pg (25.0-35.0); MCHC 32.4 g/dL (31.0-37.0); MCV 93.9 fL (80.0-100.0); Mean Platelet Volume 7.9; Monocytes # (A) 0.5 k/uL (0-1.0); Monocytes % (A) 6 %; Neutrophils # (A) 5.8 k/uL (1.3-7.7); Neutrophils % (A) 68 %; Platelet Count 185 k/uL (150-450); RBC 3.38 m/uL (4.30-5.90); RDW 13.6 % (11.5-15.5); WBC 8.5 k/uL (3.8-10.6)
[2022-11-22 06:14] LABS: Albumin 3.2 g/dL (3.5-5.0); Calcium 8.6 mg/dL (8.4-10.2); Potassium 4.5 mmol/L (3.5-5.1); Total Bilirubin 0.4 mg/dL (0.2-1.3); Total Protein 5.6 g/dL (6.3-8.2)
--- NOTE | 2022-11-22 09:04 | P.PN ---
Subjective Progress Note Date: 11/22/22 Rubin Quintanilla, is a 77-year-old male patient of Dr. Spence who presented to [facility] emergency room with a chief complaint of generalized weakness and diarrhea for one week. He was evaluated in the emergency room vital examination on presentation revealed a temperature of 97.4 pulse 80 respiration 18 blood pressure 81/53 pulse ox 100% on room air Laboratory data revealed a white blood count of 16.2 hemoglobin 13.4 platelet count 229 sodium 135 potassium 8.4 chloride 111 CO2 15 BUN 68 creatinine 4.12 ( last creatinine available to me at this time is from July 2020 which was 1. 7 prior to that creatinine was 0.9) Testing in the emergency room revealed EKG revealed atrial fibrillation with pattern consistent with pulmonary disease chest x-ray done in the emergency room revealed mild cardiomegaly and no acute cardiopulmonary disease Patient was admitted to medical floor for further evaluation and treatment Past medical history is significant for history of closed head injury, history of coronary artery disease was multiple myocardial infarctions in the past, history of hypertension, history of depression, and history of osteoarthritis. On review of systems patient is alert and oriented 3 in no apparent distress there is no fever or chills no headache or dizziness no chest pain no shortness of breath no cough no nausea or vomiting no abdominal pain no diarrhea and no urinary symptoms. On 11/17/2022 patient was seen and examined on the medical floor he is alert and oriented 3 in no apparent distress he is complaining of abdominal discomfort and diarrhea otherwise he denies any complaints he had significant drop in his hemoglobin from 13.4-11.0 this morning his stool was heme positive, otherwise he denies any complaints there is no fever or chills no headache or dizziness no chest pain no shortness of breath no cough no nausea or vomiting and no urinary symptoms On 11/18/2022 patient is alert and oriented 3. CT of abdomen without contrast had ultrasound of bladder kidney ordered. Creatinine improving to 2.16 bun 46 potassium 4.3. Hemoglobin 10.8. Nephrology, cardiology and surgical services have been consulted On 11/19/2022 patient was seen and examined on the telemetry floor he is alert and oriented 3 in no apparent distress, computed tomography scan of the abdomen and pelvis done yesterday reviewed, patient underwent EGD and colonoscopy today that revealed evidence of antral gastritis and diverticulosis, labs are pending today Will continue to monitor closely 11/20/2022 patient is alert and oriented 3. Hemoglobin today 10.1. Awaiting BMP result. This time patient denies chest pain or shortness of breath. Patient denies nausea vomiting or diarrhea. Patient denies any urinary burning or frequency. On 11/21/2022 patient was seen and examined on the medical floor he is alert and oriented 3 in no apparent distress dizziness no chest pain no shortness of breath no cough no nausea or vomiting no abdominal pain no diarrhea symptoms, kidney function is improving gradually, continue with current management [facility] On 11/22/2022 patient is alert and oriented 3. Discharge planning is in placed rehab. Creatinine 1.53 bun 23. At this time patient denies chest pain or s hortness of breath. Patient denies nausea vomiting or diarrhea. Patient denies any urinary burning or frequency Objective - Vital Signs Vital signs: Vital Signs Temp 97.6 F 11/22/22 08:00 Pulse 115 H 11/22/22 08:00 Resp 17 11/22/22 08:00 BP 137/82 11/22/22 08:00 Pulse Ox 96 11/22/22 08:00 FiO2 Intake & Output 11/21/22 11/22/22 11/22/22 18:59 06:59 18:59 Intake Total 480 240 Output Total 1700 850 Balance -1220 -850 240 Intake: Oral 480 240 Output: Urine 1700 850 Other: Voiding Method Indwelling Catheter Indwelling Catheter # Voids 1 - Exam Rubin Quintanilla, is a 77-year-old male patient of Dr. Spence who presented to [facility] emergency room with a chief complaint of generalized weakness and diarrhea for one week. He was evaluated in the emergency room vital examination on presentation rev ealed a temperature of 97.4 pulse 80 respiration 18 blood pressure 81/53 pulse ox 100% on room air Laboratory data revealed a white blood count of 16.2 hemoglobin 13.4 platelet count 229 sodium 135 potassium 8.4 chloride 111 CO2 15 BUN 68 creatinine 4.12 ( last creatinine available to me at this time is from July 2020 which was 1.7 prior to that creatinine was 0.9) Testing in the emergency room revealed EKG revealed atrial fibrillation with pattern consistent with pulmonary disease chest x-ray done in the emergency room revealed mild cardiomegaly and no acute cardiopulmonary disease Patient was admitted to medical floor for further evaluation and treatment Past medical history is significant for history of closed head injury, history of coronary artery disease was multiple myocardial infarctions in the past, history of hypertension, history of depression, and history of osteoarthritis. On review of systems patient is alert and oriented 3 in no apparent distress there is no fever or chills no headache or dizziness no chest pain no shortness of breath no cough no nausea or vomiting no abdominal pain no diarrhea and no urinary symptoms. - Labs CBC & Chem 7: 11/22/22 05:53 11/22/22 05:53 Labs: Abnormal Lab Results - Last 24 Hours (Table) 11/22/22 11/22/22 Range/Units 05:53 05:53 RBC 3.38 L (4.30-5.90) m/uL Hgb 10.3 L (13.0-17.5) gm/dL Hct 31.7 L (39.0-53.0) % Chloride 110 H (98-107) mmol/L BUN 23 H (9-20) mg/dL Creatinine 1.53 H (0.66-1.25) mg/dL Total Protein 5.6 L (6.3-8.2) g/dL Albumin 3.2 L (3.5-5.0) g/dL Assessment and Plan Plan: Gastroenteritis with several days of diarrhea and 1 episode of vomiting, will obtain stool sample for stool culture Dehydration with acute kidney injury likely related to prerenal azotemia Severe hyperkalemia patient received IV dextrose and regular insulin in the emergency room will monitor closely, he also received a dose of Kayexalate in the emergency room Underlying history of coronary artery disease with history of multiple myocardial infarctions in the past Evidence of atrial fibrillation on EKG patient is maintained on Xarelto Underlying history of depression with anxiety disorder maintained on high dose of Paxil At this time patient will be admitted to telemetry floor He was started on IV fluid Home medications were reviewed, at this time will hold lisinopril and Aldactone, and resume metoprolol, Plavix and Xarelto Will recheck labs in a.m. Nephrology and cardiology consultation were requested Infectious disease service is consulted Status post EGD on 11/19/[address] to rehab Will follow closely
[2022-11-22] MEDS: ACETAMINOPHEN TAB 500 MG TAB PO SCH ×3 (09:29→23:16)
[2022-11-22] MEDS: PARoxetine 20 MG TAB PO SCH ×2 (09:30→20:10)
[2022-11-22] MEDS: METOPROLOL TARTRATE 25 MG TAB PO SCH ×2 (09:33→20:10)
[2022-11-22] MEDS: APIXABAN 2.5 MG TABLET PO SCH ×2 (09:33→20:10)
[2022-11-22] MEDS: NYSTATIN 100,000 UNIT/GM POWD 15 GM TOPICAL SCH ×2 (09:35→20:15)
--- NOTE | 2022-11-22 10:15 | P.PN ---
Subjective Patient is seen for follow-up for acute kidney injury and hyperkalemia. There was evidence of urine retention along with significant hypotension and hypoperfusion. Patient was also acidotic and is status post bicarb drip. He has an indwelling Glez catheter Serum creatinine has improved from 4.1 on admission to 1.5 today. No significant complaints Overall patient states he is feeling much better. 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 Acute kidney injury, secondary to hypotension and urine retention currently with indwelling Glez catheter and maintained on IV fluids UA shows trace protein and RBCs 83 suggestive of traumatic specimen. Ultrasound shows no obstruction. 2. Non-gap metabolic acidosis associated with acute kidney injury and urine retention, status post bicarb drip and improved 3. Hyperkalemia associated with acute kidney injury, urine retention and use of Celebrex along with BLAYNE inhibitor as prior to admission in the setting of h ypotension and acute kidney injury. 4. Abdominal pain rule out diverticulitis 5. Hypotension most likely associated with underlying infection status post IV fluid bolus. Continue to hold antihypertensive medications 6. Rule out chronic kidney disease. 7. History of urethral stricture with remote history of dilatation. 8. Acute GI bleed s/p EGD and colonoscopy which showed antral gastritis and diverticulosis. Plan: Continue to encourage increased oral intake. Continue with glez catheter. Avoid NSAIDs/Mcdonald 2 inhibitors post discharge
--- NOTE | 2022-11-22 14:55 | P.PN ---
Subjective Progress Note Date: 11/22/22 CHIEF COMPLAINT: GI bleed HISTORY OF PRESENT ILLNESS: The patient is a 77-year-old male on chronic ant icoagulants and antiplatelet therapy presented with GI bleed. He completed both upper and lower endoscopy. He is resting comfortably but no new signs of bleeding. ROS: No reports of nausea and vomiting. No bowel movements. No fevers or chills. No new chest pain. No productive sputum. Chronic antiplatelet and chronic anticoagulant use with GI bleed. PHYSICAL EXAM: VITAL SIGNS: Reviewed CONSTITUTIONAL: Well developed and in no acute distress. EYES: Conjuctivae without sclera icterus. Extraocular movements grossly intact. HEAD, EARS, NOSE, THROAT: Moist buccal mucosa. Head is atraumatic, normocephalic. Hears conversational speech. No nasal drainage. RESPIRATORY: Non-labored respirations and equal bilateral excursions. CARDIOVASCULAR: Palpable 2+ radial pulses. ABDOMEN: Nontender. MUSCULOSKELETAL: No gross deformity of the lower extremities noted. No clubbing. No cyanosis. SKIN: Good skin turgor. Well perfused. NEUROLOGIC: Cranial nerves II through XII grossly intact. No known focal or lateralizing signs. PSYCH: Appropriate affect. CLINICAL LABS: Reviewed. Hemoglobin stable 10.1-9.9, now 10.3. ASSESSMENT: 1. Gastrointestinal bleeding with anemia 2. Chronic antiplatelet use 3. Chronic anticoagulant use PLAN: 1. Patient stable from a surgical standpoint for discharge from medically stable Objective - Vital Signs Vital signs: Vital Signs Temp 98.1 F 11/22/22 11:20 Pulse 108 H 11/22/22 11:20 Resp 17 11/22/22 11:20 BP 118/66 11/22/22 11:20 Pulse Ox 94 L 11/22/22 11:20 FiO2 Intake & Output 11/21/22 11/22/22 11/22/22 18:59 06:59 18:59 Intake Total 480 240 Output Total 1700 850 Balance -1220 -850 240 Intake: Oral 480 240 Output: Urine 1700 850 Other: Voiding Method Indwelling Catheter Indwelling Catheter Indwelling Catheter # Voids 1 # Bowel Movements 2 - Labs CBC & Chem 7: 11/22/22 05:53 11/22/22 05:53 Labs: Abnormal Lab Results - Last 24 Hours (Table) 01/22/23 01/22/23 Range/Units 05:53 05:53 RBC 3.38 L (4.30-5.90) m/uL Hgb 10.3 L (13.0-17.5) gm/dL Hct 31.7 L (39.0-53.0) % Chloride 110 H (98-107) mmol/L BUN 23 H (9-20) mg/dL Creatinine 1.53 H (0.66-1.25) mg/dL Total Protein 5.6 L (6.3-8.2) g/dL Albumin 3.2 L (3.5-5.0) g/dL Assessment and Plan (1) GI bleed Current Visit: Yes Status: Acute Code(s): K92.2 - GASTROINTESTINAL HEMORRHAGE, UNSPECIFIED SNOMED Code(s): 49551984 (2) Anemia Current Visit: Yes Status: Acute Code(s): D64.9 - ANEMIA, UNSPECIFIED SNOMED Code(s): 068864481 (3) Antiplatelet or antithrombotic long-term use Current Visit: Yes Status: Acute Code(s): Z79.02 - TRAINING AND DEVELOPMENT DIRECTOR (CURRENT) USE OF ANTITHROMBOTICS/ANTIPLATELETS SNOMED Code(s): 686494891 (4) Anticoagulant long-term use Current Visit: Yes Status: Acute Code(s): Z79.01 - SNF (CURRENT) USE OF ANTICOAGULANTS SNOMED Code(s): 669794315
--- NOTE | 2022-11-22 17:19 | P.PN ---
Subjective Progress Note Date: 11/22/22 Principal diagnosis: Leukocytosis Patient is a 77-year-old male with a past medical history significant for coronary artery disease hypertension hyperlipidemia seizure disorder guarded presented to the hospital on 11/16/2022 for evaluation of diarrhea for about a week and also started having some bright red blood in the stools, patient did see the abdominal pelvis did not show any colitis EGD colonoscopy did shows evidence of gastritis" across his but no diverticulitis. On today's evaluation that is 11/22/2022, the patient remains to be afebrile, patient is breathing comfortably on room air, patient denies having any chest pain shortness of breath or cough , the patient denies having any nausea no vomiting no abdominal pain and no further diarrhea Objective - Vital Signs Vital signs: Vital Signs Temp 98.1 F 11/22/22 11:20 Pulse 108 H 11/22/22 11:20 Resp 17 11/22/22 11:20 BP 118/66 11/22/22 11:20 Pulse Ox 94 L 11/22/22 11:20 FiO2 Intake & Output 11/21/22 11/22/22 11/22/22 18:59 06:59 18:59 Intake Total 480 240 Output Total 1700 850 Balance -1220 -850 240 Intake: Oral 480 240 Output: Urine 1700 850 Other: Voiding Method Indwelling Catheter Indwelling Catheter Indwelling Catheter # Voids 1 # Bowel Movements 2 - Exam GENERAL DESCRIPTION: An elderly male lying in bed in no distress RESPIRATORY SYSTEM: Unlabored breathing , decreased breath sounds at bases HEART: S1 S2 regular rate and rhythm , ABDOMEN: Soft , no tenderness EXTREMITIES: No edema feet - Labs CBC & Chem 7: 11/22/22 05:53 11/22/22 05:53 Labs: Abnormal Lab Results - Last 24 Hours (Table) 11/22/22 11/22/22 Range/Units 05:53 05:53 RBC 3.38 L (4.30-5.90) m/uL Hgb 10.3 L (13.0-17.5) gm/dL Hct 31.7 L (39.0-53.0) % Chloride 110 H (98-107) mmol/L BUN 23 H (9-20) mg/dL Creatinine 1.53 H (0.66-1.25) mg/dL Total Protein 5.6 L (6.3-8.2) g/dL Albumin 3.2 L (3.5-5.0) g/dL Assessment and Plan (1) Leukocytosis Current Visit: Yes Status: Acute Code(s): D72.829 - ELEVATED WHITE BLOOD CELL COUNT, UNSPECIFIED SNOMED Code(s): 508855048 Plan: 1patient with leukocytosis which is more likely related to his GI bleed as patient did present with the bright red blood per rectum patient did have some diarrhea however there was evidence of any colitis on the CT and currently no other obvious focus of infection and the patient white count has normalized without antibiotic therapy 2 his inflammatory markers are not significantly elevated with a sed rate of only 18 and pro-calcitonin has been normal stool culture negative, no need for systemic antibiotic therapy at this point Time with Patient: Less than 30
[2022-11-22] MEDS: ALPRAZolam 0.5 MG TAB PO SCH (20:10)
[2022-11-22] MEDS: DIVALPROEX 500 MG TABLET.DR PO SCH (20:10)
[2022-11-23] MEDS: ACETAMINOPHEN TAB 500 MG TAB PO SCH ×3 (06:16→23:04)
[2022-11-23] MEDS: PANTOPRAZOLE 40 MG TABLET PO SCH (06:17)
[2022-11-23 06:49] LABS: Basophils % (A) 0 %; Eosinophils # (A) 0.3 k/uL (0-0.7); Eosinophils % (A) 3 %; HCT 30.5 % (39.0-53.0); HGB 9.7 gm/dL (13.0-17.5); Lymphocytes # (A) 1.4 k/uL (1.0-4.8); Lymphocytes % (A) 13 %; MCH 30.2 pg (25.0-35.0); MCHC 31.9 g/dL (31.0-37.0); MCV 94.9 fL (80.0-100.0); Mean Platelet Volume 8.6; Monocytes # (A) 0.8 k/uL (0-1.0); Monocytes % (A) 8 %; Neutrophils # (A) 7.9 k/uL (1.3-7.7); Neutrophils % (A) 74 %; Platelet Count 193 k/uL (150-450); RBC 3.21 m/uL (4.30-5.90); RDW 13.9 % (11.5-15.5); WBC 10.7 k/uL (3.8-10.6)
[2022-11-23 07:43] LABS: Calcium 8.3 mg/dL (8.4-10.2); Magnesium 1.5 mg/dL (1.6-2.3); Potassium 4.5 mmol/L (3.5-5.1); Total Bilirubin 0.4 mg/dL (0.2-1.3); Total Protein 5.3 g/dL (6.3-8.2)
[2022-11-23] MEDS: PARoxetine 20 MG TAB PO SCH ×2 (08:30→20:00)
[2022-11-23] MEDS: APIXABAN 2.5 MG TABLET PO SCH ×2 (08:30→20:00)
[2022-11-23] MEDS: METOPROLOL TARTRATE 25 MG TAB PO SCH ×2 (08:30→20:00)
[2022-11-23] MEDS: MAGNESIUM SULFATE-D5W PMX 1 GM in DEXTROSE/WATER 1 100ML.BAG IVPB SCH ×2 (08:31→10:05)
[2022-11-23] MEDS: NYSTATIN 100,000 UNIT/GM POWD 15 GM TOPICAL SCH ×2 (08:32→20:00)
[2022-11-23] MEDS: ACETAMINOPHEN TAB 325 MG TAB PO PRN (09:03)
--- NOTE | 2022-11-23 09:08 | P.PN ---
Subjective Patient is seen in follow-up for acute kidney injury. Renal function stable. Has Reddy catheter for urinary retention. Nonoliguric. Oral intake is fair. No active complaints. Vital signs are stable. General: Awake. No acute distress. HEENT: Head exam is unremarkable. LUNGS: Breath sounds decreased. HEART: Rate and Rhythm are regular. ABDOMEN: Soft, no distention. EXTREMITITES: No edema. Objective - Vital Signs Vital signs: Vital Signs Temp 99.0 F 11/23/22 03:30 Pulse 92 11/23/22 03:30 Resp 16 11/23/22 03:30 BP 99/66 11/23/22 03:30 Pulse Ox 95 11/23/22 03:30 FiO2 Intake & Output 11/22/22 11/23/22 11/23/22 18:59 06:59 18:59 Intake Total 240 180 Output Total 800 600 Balance -560 -600 180 Intake: Oral 240 180 Output: Urine 800 600 Other: Voiding Method Indwelling Catheter Indwelling Catheter # Bowel Movements 2 1 - Labs CBC & Chem 7: 11/23/22 06:32 11/23/22 06:32 Labs: Abnormal Lab Results - Last 24 Hours (Table) 11/23/22 11/23/22 Range/Units 06:32 06:32 WBC 10.7 H (3.8-10.6) k/uL RBC 3.21 L (4.30-5.90) m/uL Hgb 9.7 L (13.0-17.5) gm/dL Hct 30.5 L (39.0-53.0) % Neutrophils # 7.9 H (1.3-7.7) k/uL Chloride 108 H (98-107) mmol/L BUN 23 H (9-20) mg/dL Creatinine 1.48 H (0.66-1.25) mg/dL Calcium 8.3 L (8.4-10.2) mg/dL Magnesium 1.5 L (1.6-2.3) mg/dL Total Protein 5.3 L (6.3-8.2) g/dL Albumin 3.0 L (3.5-5.0) g/dL Assessment and Plan Plan: Assessment: 1. Acute kidney injury mostly prerenal secondary to hypotension and component of urinary retention. No hydronephrosis noted on kidney ultrasound. Creatinine was 4.121 admission and is 1.4 today. Prior records show creatinine of 0.9 in June 2018. 2. Metabolic acidosis secondary to acute kidney injury and urinary retention. Status post bicarbonate drip. 3. Hyperkalemia secondary to acute kidney injury, urinary retention, use of nonsteroidals and BLAYNE inhibitor. Resolved. 4. Acute GI bleed status post EGD and colonoscopy which showed antral gastritis and diverticulosis. 5. Mild hypomagnesemia from poor intake and PPI. Being replaced. 6. Urinary retention. Has Reddy catheter. Plan: Encouraged oral intake. Check iron studies. Avoid nephrotoxins. Attempt trial of void today. If has persistent retention, patient will be discharged to ECF with Reddy catheter and will need to see urology.
--- NOTE | 2022-11-23 10:32 | P.PN ---
Subjective Progress Note Date: 11/23/22 CHIEF COMPLAINT: GI bleed HISTORY OF PRESENT ILLNESS: Patient is status post EGD and colonoscopy revealing antral gastritis and diverticulosis. No evidence of GI bleed. It is presumed that the bleeding is from the diverticulum. Patient has had no further bleeding. Hemoglobin is down from 10.3-9.7 cr 1.48 Plavix stopped. Currently on Eliquis. Nephrology has ordered iron studies. Patient seen and examined with Dr. Mendosa PHYSICAL EXAM: VITAL SIGNS: Reviewed. GENERAL: Well-developed in no acute distress. HEENT: No sclera icterus. Extraocular movements grossly intact. Moist buccal mucosa. Head is atraumatic, normocephalic. ABDOMEN: Soft. Nondistended. Nontender. NEUROLOGIC: Alert and oriented. Cranial nerves II through XII grossly intact. ASSESSMENT: 1. Acute GI bleed with bloody diarrhea and had been on Xarelto and Plavix at home 2. Acute kidney injury 3. Hyperkalemia improved PLAN: -Patient can be discharged from surgical standpoint when medically cleared -Continue PPI Physician Data Architect Manager note has been reviewed by physician. Signing provider agrees with the documented findings, assessment, and plan of care Objective - Vital Signs Vital signs: Vital Signs Temp 99.0 F 11/23/22 03:30 Pulse 92 11/23/22 03:30 Resp 16 11/23/22 03:30 BP 99/66 11/23/22 03:30 Pulse Ox 95 11/23/22 03:30 FiO2 Intake & Output 11/22/22 11/23/22 11/23/22 18:59 06:59 18:59 Intake Total 240 180 Output Total 800 600 Balance -560 -600 180 Intake: Oral 240 180 Output: Urine 800 600 Other: Voiding Method Indwelling Catheter Indwelling Catheter # Bowel Movements 2 1 - Labs CBC & Chem 7: 11/23/22 06:32 11/23/22 06:32 Labs: Abnormal Lab Results - Last 24 Hours (Table) 11/23/22 11/23/22 Range/Units 06:32 06:32 WBC 10.7 H (3.8-10.6) k/uL RBC 3.21 L (4.30-5.90) m/uL Hgb 9.7 L (13.0-17.5) gm/dL Hct 30.5 L (39.0-53.0) % Neutrophils # 7.9 H (1.3-7.7) k/uL Chloride 108 H (98-107) mmol/L BUN 23 H (9-20) mg/dL Creatinine 1.48 H (0.66-1.25) mg/dL Calcium 8.3 L (8.4-10.2) mg/dL Magnesium 1.5 L (1.6-2.3) mg/dL Total Protein 5.3 L (6.3-8.2) g/dL Albumin 3.0 L (3.5-5.0) g/dL Microbiology - Last 24 Hours (Table) 11/17/22 08:30 Stool Culture - Final Stool
--- NOTE | 2022-11-23 12:33 | P.PN ---
Subjective Progress Note Date: 11/23/22 Principal diagnosis: Leukocytosis Patient is a 77-year-old male with a past medical history significant for coronary artery disease hypertension hyperlipidemia seizure disorder guarded presented to the hospital on 11/16/2022 for evaluation of diarrhea for about a week and also started having some bright red blood in the stools, patient did see the abdominal pelvis did not show any colitis EGD colonoscopy did shows evidence of gastritis" across his but no diverticulitis. On today's evaluation that is 11/23/2022, the patient continues remains to be afebrile, patient is breathing comfortably on room air, patient denies chest pain shortness of breath or cough , the patient denies having any nausea no vomiting no abdominal pain and diarrhea has resolved Objective - Vital Signs Vital signs: Vital Signs Temp 99.0 F 11/23/22 03:30 Pulse 92 11/23/22 03:30 Resp 16 11/23/22 03:30 BP 99/66 11/23/22 03:30 Pulse Ox 95 11/23/22 03:30 FiO2 Intake & Output 11/22/22 11/23/22 11/23/22 18:59 06:59 18:59 Intake Total 240 180 Output Total 800 600 Balance -560 -600 180 Intake: Oral 240 180 Output: Urine 800 600 Other: Voiding Method Indwelling Catheter Indwelling Catheter # Bowel Movements 2 1 - Exam GENERAL DESCRIPTION: An elderly male lying in bed in no distress RESPIRATORY SYSTEM: Unlabored breathing , decreased breath sounds at bases HEART: S1 S2 regular rate and rhythm , ABDOMEN: Soft , no tenderness EXTREMITIES: No edema feet - Labs CBC & Chem 7: 11/23/22 06:32 11/23/22 06:32 Labs: Abnormal Lab Results - Last 24 Hours (Table) 11/23/22 11/23/22 Range/Units 06:32 06:32 WBC 10.7 H (3.8-10.6) k/uL RBC 3.21 L (4.30-5.90) m/uL Hgb 9.7 L (13.0-17.5) gm/dL Hct 30.5 L (39.0-53.0) % Neutrophils # 7.9 H (1.3-7.7) k/uL Chloride 108 H (98-107) mmol/L BUN 23 H (9-20) mg/dL Creatinine 1.48 H (0.66-1.25) mg/dL Calcium 8.3 L (8.4-10.2) mg/dL Magnesium 1.5 L (1.6-2.3) mg/dL Total Protein 5.3 L (6.3-8.2) g/dL Albumin 3.0 L (3.5-5.0) g/dL Microbiology - Last 24 Hours (Table) 11/17/22 08:30 Stool Culture - Final Stool Assessment and Plan (1) Leukocytosis Current Visit: Yes Status: Acute Code(s): D72.829 - ELEVATED WHITE BLOOD CELL COUNT, UNSPECIFIED SNOMED Code(s): 384780441 Plan: 1patient with leukocytosis which is more likely related to his GI bleed as patient did present with the bright red blood per rectum patient did have some diarrhea however there was evidence of any colitis on the CT and currently no other obvious focus of infection and the patient white count has normalized without antibiotic therapy 2the patient remains to be afebrile, the patient inflammatory markers are not significantly elevated with a sed rate of only 18 and pro-calcitonin has been normal stool culture negative, patient white count normalized without antibiotic therapy, hence recommending no antibiotic on discharge Time with Patient: Less than 30
--- NOTE | 2022-11-23 16:56 | P.PN ---
Subjective Progress Note Date: 11/23/22 Rubin Quintanilla, is a 77-year-old male patient of Dr. Spence who presented to [facility] emergency room with a chief complaint of generalized weakness and diarrhea for one week. He was evaluated in the emergency room vital examination on presentation revealed a temperature of 97.4 pulse 80 respiration 18 blood pressure 81/53 pulse ox 100% on room air Laboratory data revealed a white blood count of 16.2 hemoglobin 13.4 platelet count 229 sodium 135 potassium 8.4 chloride 111 CO2 15 BUN 68 creatinine 4.12 ( last creatinine available to me at this time is from July 2020 which was 1. 7 prior to that creatinine was 0.9) Testing in the emergency room revealed EKG revealed atrial fibrillation with pattern consistent with pulmonary disease chest x-ray done in the emergency room revealed mild cardiomegaly and no acute cardiopulmonary disease Patient was admitted to medical floor for further evaluation and treatment Past medical history is significant for history of closed head injury, history of coronary artery disease was multiple myocardial infarctions in the past, history of hypertension, history of depression, and history of osteoarthritis. On review of systems patient is alert and oriented 3 in no apparent distress there is no fever or chills no headache or dizziness no chest pain no shortness of breath no cough no nausea or vomiting no abdominal pain no diarrhea and no urinary symptoms. On 11/17/2022 patient was seen and examined on the medical floor he is alert and oriented 3 in no apparent distress he is complaining of abdominal discomfort and diarrhea otherwise he denies any complaints he had significant drop in his hemoglobin from 13.4-11.0 this morning his stool was heme positive, otherwise he denies any complaints there is no fever or chills no headache or dizziness no chest pain no shortness of breath no cough no nausea or vomiting and no urinary symptoms On 11/18/2022 patient is alert and oriented 3. CT of abdomen without contrast had ultrasound of bladder kidney ordered. Creatinine improving to 2.16 bun 46 potassium 4.3. Hemoglobin 10.8. Nephrology, cardiology and surgical services have been consulted On 11/19/2022 patient was seen and examined on the telemetry floor he is alert and oriented 3 in no apparent distress, computed tomography scan of the abdomen and pelvis done yesterday reviewed, patient underwent EGD and colonoscopy today that revealed evidence of antral gastritis and diverticulosis, labs are pending today Will continue to monitor closely 11/20/2022 patient is alert and oriented 3. Hemoglobin today 10.1. Awaiting BMP result. This time patient denies chest pain or shortness of breath. Patient denies nausea vomiting or diarrhea. Patient denies any urinary burning or frequency. On 11/21/2022 patient was seen and examined on the medical floor he is alert and oriented 3 in no apparent distress dizziness no chest pain no shortness of breath no cough no nausea or vomiting no abdominal pain no diarrhea symptoms, kidney function is improving gradually, continue with current management plan is to transfer to half-way for rehab on Wednesday On 11/22/2022 patient is alert and oriented 3. Discharge planning is in placed rehab. Creatinine 1.53 bun 23. At this time patient denies chest pain or s hortness of breath. Patient denies nausea vomiting or diarrhea. Patient denies any urinary burning or frequency On 11/23/2022 patient was seen and examined on the medical floor he is alert and oriented 3 in no apparent distress there is no fever or chills no headache or dizziness no chest pain no shortness of breath no cough no nausea or vomiting no abdominal pain no diarrhea and no urinary symptoms. Patient is still having significant weakness he is walking with the help of physical therapy and occupational therapy Reddy catheter was removed today and we are waiting for voiding trials will continue with current management otherwise plan to discharge tomorrow either to home with home care or to a half-way if we can obtain insurance approval Objective - Vital Signs Vital signs: Vital Signs Temp 98.2 F 11/23/22 12:00 Pulse 92 11/23/22 13:49 Resp 16 11/23/22 13:49 BP 90/56 11/23/22 12:00 Pulse Ox 99 11/23/22 12:00 FiO2 Intake & Output 11/22/22 11/23/22 11/23/22 18:59 06:59 18:59 Intake Total 240 600 Output Total 800 600 900 Balance -560 -600 -300 Weight 113.398 kg Intake: Oral 240 600 Output: Urine 800 600 900 Other: Voiding Method Indwelling Catheter Indwelling Catheter Indwelling Catheter # Voids 1 # Bowel Movements 2 1 - Exam Rubin Quintanilla, is a 77-year-old male patient of Dr. Spence who presented to [facility] emergency room with a chief complaint of generalized weakness and diarrhea for one week. He was evaluated in the emergency room vital examination on presentation revealed a temperature of 97.4 pulse 80 respiration 18 blood pressure 81/53 pulse ox 100% on room air Laboratory data revealed a white blood count of 16.2 hemoglobin 13.4 platelet count 229 sodium 135 potassium 8.4 chloride 111 CO2 15 BUN 68 creatinine 4.12 ( last creatinine available to me at this time is from July 2020 which was 1.7 prior to that creatinine was 0.9) Testing in the emergency room revealed EKG revealed atrial fibrillation with pattern consistent with pulmonary disease chest x-ray done in the emergency room revealed mild cardiomegaly and no acute cardiopulmonary disease Patient was admitted to medical floor for further evaluation and treatment Past medical history is significant for history of closed head injury, history of coronary artery disease was multiple myocardial infarctions in the past, history of hypertension, history of depression, and history of osteoarthritis. On review of systems patient is alert and oriented 3 in no apparent distress there is no fever or chills no headache or dizziness no chest pain no shortness of breath no cough no nausea or vomiting no abdominal pain no diarrhea and no urinary symptoms. - Labs CBC & Chem 7: 11/23/22 06:32 11/23/22 06:32 Labs: Abnormal Lab Results - Last 24 Hours (Table) 11/23/22 11/23/22 Range/Units 06:32 06:32 WBC 10.7 H (3.8-10.6) k/uL RBC 3.21 L (4.30-5.90) m/uL Hgb 9.7 L (13.0-17.5) gm/dL Hct 30.5 L (39.0-53.0) % Neutrophils # 7.9 H (1.3-7.7) k/uL Chloride 108 H (98-107) mmol/L BUN 23 H (9-20) mg/dL Creatinine 1.48 H (0.66-1.25) mg/dL Calcium 8.3 L (8.4-10.2) mg/dL Magnesium 1.5 L (1.6-2.3) mg/dL Total Protein 5.3 L (6.3-8.2) g/dL Albumin 3.0 L (3.5-5.0) g/dL Microbiology - Last 24 Hours (Table) 11/17/22 08:30 Stool Culture - Final Stool Assessment and Plan Plan: Gastroenteritis with several days of diarrhea and 1 episode of vomiting, will obtain stool sample for stool culture Dehydration with acute kidney injury likely related to prerenal azotemia Severe hyperkalemia patient received IV dextrose and regular insulin in the emergency room will monitor closely, he also received a dose of Kayexalate in the emergency room Underlying history of coronary artery disease with history of multiple myocardial infarctions in the past Evidence of atrial fibrillation on EKG patient is maintained on Xarelto Underlying history of depression with anxiety disorder maintained on high dose of Paxil At this time patient will be admitted to telemetry floor He was started on IV fluid Home medications were reviewed, at this time will hold lisinopril and Aldactone, and resume metoprolol, Plavix and Xarelto Will recheck labs in a.m. Nephrology and cardiology consultation were requested Infectious disease service is consulted Status post EGD on 11/19/[address] to rehab Will follow closely
[2022-11-23 17:22] LABS: % Iron Saturation 16.01 (15.00-50.00)
[2022-11-23] MEDS: ALPRAZolam 0.5 MG TAB PO SCH (20:00)
[2022-11-23] MEDS: DIVALPROEX 500 MG TABLET.DR PO SCH (20:00)
[2022-11-24] MEDS: PANTOPRAZOLE 40 MG TABLET PO SCH (06:39)
[2022-11-24] MEDS: METOPROLOL TARTRATE 25 MG TAB PO SCH (09:49)
[2022-11-24] MEDS: PARoxetine 20 MG TAB PO SCH (09:50)
[2022-11-24] MEDS: ACETAMINOPHEN TAB 500 MG TAB PO SCH (09:50)
[2022-11-24] MEDS: APIXABAN 2.5 MG TABLET PO SCH (09:50)
[2022-11-24] MEDS: NYSTATIN 100,000 UNIT/GM POWD 15 GM TOPICAL SCH (09:52)
--- NOTE | 2022-11-24 10:28 | P.PN ---
Subjective Patient is seen in follow-up for acute kidney injury. Renal function stable as of yesterday. Reddy catheter removed 11/23/2022. Has been voiding on his own. Oral intake is fair. No active complaints. Vital signs are stable. General: Awake. No acute distress. HEENT: Head exam is unremarkable. LUNGS: Breath sounds decreased. HEART: Rate and Rhythm are regular. ABDOMEN: Soft, no distention. EXTREMITITES: No edema. Objective - Vital Signs Vital signs: Vital Signs Temp 98.0 F 11/24/22 07:30 Pulse 96 11/24/22 08:59 Resp 18 11/24/22 07:30 BP 133/84 11/24/22 07:30 Pulse Ox 98 11/24/22 07:30 FiO2 Intake & Output 11/23/22 11/24/22 11/24/22 18:59 06:59 18:59 Intake Total 780 660 Output Total 1200 200 100 Balance -420 -200 560 Weight 113.398 kg Intake: Oral 780 660 Output: Urine 1200 200 100 Other: Voiding Method Indwelling Catheter Indwelling Catheter Toilet Bedside Commode Urinal # Voids 1 1 - Labs CBC & Chem 7: 11/23/22 06:32 11/23/22 06:32 Labs: Abnormal Lab Results - Last 24 Hours (Table) 11/23/22 Range/Units 06:32 Iron 45 L (65-175) ug/dL Transferrin 199.0 L (204.0-354.0) mg/dL Ferritin 334.0 H (22.0-322.0) ng/mL Microbiology - Last 24 Hours (Table) 11/17/22 08:30 Stool Culture - Final Stool Assessment and Plan Plan: Assessment: 1. Acute kidney injury mostly prerenal secondary to hypotension and component of urinary retention. No hydronephrosis noted on kidney ultrasound. Creatinine was 4.121 admission - 1.48 yesterday. Prior records show creatinine of 0.9 in June 2018. 2. Metabolic acidosis secondary to acute kidney injury and urinary retention. Status post bicarbonate drip. Improved. 3. Hyperkalemia secondary to acute kidney injury, urinary retention, use of nonsteroidals and BLAYNE inhibitor. Resolved. 4. Acute GI bleed status post EGD and colonoscopy which showed antral gastritis and diverticulosis. Iron deficiency noted. 5. Mild hypomagnesemia from poor intake and PPI. Replaced. Better. 6. Urinary retention. Reddy catheter removed. Plan: Encouraged oral intake. Add IV iron. Avoid nephrotoxins. Repeat BMP and magnesium level to 3 days postdischarge. Follow up outpatient in 1 week.
[2022-11-24] MEDS ORDERED: SODIUM FERRIC GLUCONAT-SUCROSE 125 MG in SODIUM CHLORIDE 0.9% 100 ML IVPB SCH (11:00)
[2022-11-24 11:35] VITALS: RESP 16; TEMP 98.1
[2022-11-24 11:59] VITALS: BP 102/66; PULSE 98
--- NOTE | 2022-11-24 12:07 | P.PN ---
Subjective Progress Note Date: 11/24/22 Principal diagnosis: Leukocytosis Patient is a 77-year-old male with a past medical history significant for coronary artery disease hypertension hyperlipidemia seizure disorder guarded presented to the hospital on 11/16/2022 for evaluation of diarrhea for about a week and also started having some bright red blood in the stools, patient did see the abdominal pelvis did not show any colitis EGD colonoscopy did shows evidence of gastritis" across his but no diverticulitis. On today's evaluation that is 11/24/2022, the patient denies any fever or any chills, patient is breathing comfortably on room air, patient denies chest pain shortness of breath or cough , the patient denies having any nausea no vomiting no abdominal pain and diarrhea has resolved, patient is overall feeling better and wants to go home Objective - Vital Signs Vital signs: Vital Signs Temp 98.0 F 11/24/22 07:30 Pulse 96 11/24/22 08:59 Resp 18 11/24/22 07:30 BP 133/84 11/24/22 07:30 Pulse Ox 98 11/24/22 07:30 FiO2 Intake & Output 11/23/22 11/24/22 11/24/22 18:59 06:59 18:59 Intake Total 780 660 Output Total 1200 200 100 Balance -420 -200 560 Weight 113.398 kg Intake: Oral 780 660 Output: Urine 1200 200 100 Other: Voiding Method Indwelling Catheter Indwelling Catheter Toilet Bedside Commode Urinal # Voids 1 1 - Exam GENERAL DESCRIPTION: An elderly male lying in bed in no distress RESPIRATORY SYSTEM: Unlabored breathing , decreased breath sounds at bases HEART: S1 S2 regular rate and rhythm , ABDOMEN: Soft , no tenderness EXTREMITIES: No edema feet - Labs CBC & Chem 7: 11/23/22 06:32 11/23/22 06:32 Labs: Abnormal Lab Results - Last 24 Hours (Table) 11/23/22 Range/Units 06:32 Iron 45 L (65-175) ug/dL Transferrin 199.0 L (204.0-354.0) mg/dL Ferritin 334.0 H (22.0-322.0) ng/mL Microbiology - Last 24 Hours (Table) 11/17/22 08:30 Stool Culture - Final Stool Assessment and Plan (1) Leukocytosis Current Visit: Yes Status: Acute Code(s): D72.829 - ELEVATED WHITE BLOOD CELL COUNT, UNSPECIFIED SNOMED Code(s): 047601579 Plan: 1patient with leukocytosis which is more likely related to his GI bleed as patient did present with the bright red blood per rectum patient did have some diarrhea however there was evidence of any colitis on the CT and currently no other obvious focus of infection and the patient white count has normalized without antibiotic therapy 2the patient remains to be afebrile, the patient inflammatory markers are not significantly elevated with a sed rate of only 18 and pro-calcitonin has been normal stool culture negative, patient white count normalized without antibiotic therapy,, will monitor the patient closely off antibiotic therapy and no need for antibiotic on discharge Time with Patient: Less than 30
--- NOTE | 2022-11-24 12:52 | P.PN ---
Subjective Progress Note Date: 11/24/22 CHIEF COMPLAINT: GI bleed HISTORY OF PRESENT ILLNESS: Patient is status post EGD and colonoscopy revealing antral gastritis and diverticulosis. No evidence of GI bleed. It is presumed that the bleeding is from the diverticulum. Patient has had no further bleeding. Hemoglobin is down from 10.3-9.7 cr 1.48 Plavix stopped. Currently on Eliquis. Nephrology has ordered iron studies. Patient seen and examined with Dr. Mendosa PHYSICAL EXAM: VITAL SIGNS: Reviewed. GENERAL: Well-developed in no acute distress. HEENT: No sclera icterus. Extraocular movements grossly intact. Moist buccal mucosa. Head is atraumatic, normocephalic. ABDOMEN: Soft. Nondistended. Nontender. NEUROLOGIC: Alert and oriented. Cranial nerves II through XII grossly intact. ASSESSMENT: 1. Acute GI bleed with bloody diarrhea and had been on Xarelto and Plavix at home 2. Acute kidney injury 3. Hyperkalemia improved PLAN: -Patient can be discharged from surgical standpoint when medically cleared -Continue PPI Physician Certified Pesticide Applicator note has been reviewed by physician. Signing provider agrees with the documented findings, assessment, and plan of care Objective - Vital Signs Vital signs: Vital Signs Temp 98.1 F 11/24/22 11:34 Pulse 98 11/24/22 11:58 Resp 16 11/24/22 11:58 BP 102/66 11/24/22 11:58 Pulse Ox 96 11/24/22 11:58 FiO2 Intake & Output 11/23/22 11/24/22 11/24/22 18:59 06:59 18:59 Intake Total 780 660 Output Total 1200 200 100 Balance -420 -200 560 Weight 113.398 kg Intake: Oral 780 660 Output: Urine 1200 200 100 Other: Voiding Method Indwelling Catheter Indwelling Catheter Toilet Bedside Commode Urinal # Voids 1 1 - Labs CBC & Chem 7: 11/23/22 06:32 11/23/22 06:32 Labs: Abnormal Lab Results - Last 24 Hours (Table) 11/23/22 Range/Units 06:32 Iron 45 L (65-175) ug/dL Transferrin 199.0 L (204.0-354.0) mg/dL Ferritin 334.0 H (22.0-322.0) ng/mL Microbiology - Last 24 Hours (Table) 11/17/22 08:30 Stool Culture - Final Stool
--- NOTE | 2022-11-25 11:54 | P.DS ---
Providers Date of admission: 11/16/22 16:28 Expected date of discharge: 11/24/22 Attending physician: Autumn Lloyd Consults: 11/16/22 16:28 Consult Physician Urgent Consulting Provider: Koki Baker Consult Reason/Comments: Acute renal failure, hyperkalemia Do you want consulting provider notified?: Yes 11/16/22 19:19 Consult Physician Routine Consulting Provider: Renny Limon Consult Reason/Comments: coronary artery disease Do you want consulting provider notified?: Yes 11/17/22 16:52 Consult Physician Routine Consulting Provider: Domingo Mendosa Consult Reason/Comments: anemia, heme positive stools Do you want consulting provider notified?: Yes 11/19/22 16:41 Consult Physician Routine Consulting Provider: Millicent Irwin Consult Reason/Comments: leukocytosis Do you want consulting provider notified?: Yes Primary care physician: [facility] Course: Diagnosis on discharge: Gastroenteritis with several days of diarrhea and 1 episode of vomiting, will obtain stool sample for stool culture Dehydration with acute kidney injury likely related to prerenal azotemia Severe hyperkalemia patient received IV dextrose and regular insulin in the emergency room will monitor closely, he also received a dose of Kayexalate in the emergency room Underlying history of coronary artery disease with history of multiple myocar dial infarctions in the past Evidence of atrial fibrillation on EKG patient is maintained on Xarelto Underlying history of depression with anxiety disorder maintained on high dose of Paxil Status post EGD on 11/19/2022 Hospital course: Rubin Quintanilla, is a 77-year-old male patient of Dr. Spence who presented to [facility] emergency room with a chief complaint of generalized weakness and diarrhea for one week. He was evaluated in the emergency room vital examination on presentation revealed a temperature of 97.4 pulse 80 respiration 18 blood pressure 81/53 pulse ox 100% on room air Laboratory data revealed a white blood count of 16.2 hemoglobin 13.4 platelet count 229 sodium 135 potassium 8.4 chloride 111 CO2 15 BUN 68 creatinine 4.12 ( last creatinine available to me at this time is from July 2020 which was 1.7 prior to that creatinine was 0.9) Testing in the emergency room revealed EKG revealed atrial fibrillation with pattern consistent with pulmonary disease chest x-ray done in the emergency room revealed mild cardiomegaly and no acute cardiopulmonary disease Patient was admitted to medical floor for further evaluation and treatment Past medical history is significant for history of closed head injury, history of coronary artery disease was multiple myocardial infarctions in the past, history of hypertension, history of depression, and history of osteoarthritis. On review of systems patient is alert and oriented 3 in no apparent distress there is no fever or chills no headache or dizziness no chest pain no shortness of breath no cough no nausea or vomiting no abdominal pain no diarrhea and no urinary symptoms. On 11/17/2022 patient was seen and examined on the medical floor he is alert and oriented 3 in no apparent distress he is complaining of abdominal discomfort and diarrhea otherwise he denies any complaints he had significant drop in his hemoglobin from 13.4-11.0 this morning his stool was heme positive, otherwise he denies any complaints there is no fever or chills no headache or dizziness no chest pain no shortness of breath no cough no nausea or vomiting and no urinary symptoms On 11/18/2022 patient is alert and oriented 3. CT of abdomen without contrast had ultrasound of bladder kidney ordered. Creatinine improving to 2.16 bun 46 potassium 4.3. Hemoglobin 10.8. Nephrology, cardiology and surgical services have been consulted On 11/19/2022 patient was seen and examined on the telemetry floor he is alert and oriented 3 in no apparent distress, computed tomography scan of the abdomen and pelvis done yesterday reviewed, patient underwent EGD and colonoscopy today that revealed evidence of antral gastritis and diverticulosis, labs are pending today Will continue to monitor closely 11/20/2022 patient is alert and oriented 3. Hemoglobin today 10.1. Awaiting BMP result. This time patient denies chest pain or shortness of breath. Patient denies nausea vomiting or diarrhea. Patient denies any urinary burning or frequency. On 11/21/2022 patient was seen and examined on the medical floor he is alert and oriented 3 in no apparent distress dizziness no chest pain no shortness of breath no cough no nausea or vomiting no abdominal pain no diarrhea symptoms, kidney function is improving gradually, continue with current management plan is to transfer to [facility] for rehab on Wednesday On 11/22/2022 patient is alert and oriented 3. Discharge planning is in placed rehab. Creatinine 1.53 bun 23. At this time patient denies chest pain or shortness of breath. Patient denies nausea vomiting or diarrhea. Patient denies any urinary burning or frequency On 11/23/2022 patient was seen and examined on the medical floor he is alert and oriented 3 in no apparent distress there is no fever or chills no headache or dizziness no chest pain no shortness of breath no cough no nausea or vomiting no abdominal pain no diarrhea and no urinary symptoms. Patient is still having significant weakness he is walking with the help of physical therapy and occupational therapy Reddy catheter was removed today and we are waiting for voiding trials will continue with current management otherwise plan to discharge tomorrow either to home with home care or to a [facility] if we can obtain insurance approval On 11/24/2022 patient was cleared for discharge. Patient was d/c home on eliquis and Lopressor. Patient to follow-up with PCP consulting providers for further management Plan - Discharge Summary Discharge Rx Participant: No New Discharge Prescriptions: New Apixaban [Eliquis] 2.5 mg PO BID tab Nystatin 100,000 Unit/gm Powd [Mycostatin Powder] 1 applic TOPICAL BID each Metoprolol Tartrate [Lopressor] 25 mg PO BID tab Continue ALPRAZolam [Xanax] 0.5 mg PO HS Isosorbide Mononitrate ER [Imdur] 30 mg PO DAILY Divalproex [Depakote] 500 mg PO HS PARoxetine HCL 40 mg PO BID Atorvastatin [Lipitor] 80 mg PO HS #30 tab Omeprazole 20 mg PO DAILY Discontinued Celecoxib [CeleBREX] 200 mg PO HS lisinopriL [Zestril] 10 mg PO HS Metoprolol Tartrate [Lopressor] 50 mg PO BID Rivaroxaban [Xarelto] 15 mg PO HS Clopidogrel [Plavix] 75 mg PO HS Spironolactone [Aldactone] 25 mg PO HS Discharge Medication List ALPRAZolam [Xanax] 0.5 mg PO HS 06/02/18 [History] Divalproex [Depakote] 500 mg PO HS 06/02/18 [History] Isosorbide Mononitrate ER [Imdur] 30 mg PO DAILY 06/02/18 [History] PARoxetine HCL 40 mg PO BID 06/02/18 [History] Atorvastatin [Lipitor] 80 mg PO HS #30 tab 06/06/18 [Rx] Omeprazole 20 mg PO DAILY 11/16/22 [History] Apixaban [Eliquis] 2.5 mg PO BID tab 11/24/22 [Rx] Metoprolol Tartrate [Lopressor] 25 mg PO BID tab 11/24/22 [Rx] Nystatin 100,000 Unit/gm Powd [Mycostatin Powder] 1 applic TOPICAL BID each 11/24/22 [Rx] Follow up Appointment(s)/Referral(s): Autumn Lloyd MD [Primary Care Provider] - 11/27/22 10:15 am Patient Instructions/Handouts: A-fib (Atrial Fibrillation) (DC), Chronic Kidney Disease (DC), Hyperkalemia (DC) Activity/Diet/Wound Care/Special Instructions: [facility] has his meds on hold and you will need to call them to let them know which meds you need and they can refill them. Discharge/Stand Alone Forms: Who Do I Call?, Adult Foster Residential List, Community Resources, Help In The Home, Personal Geophysical Data Technician Discharge Disposition: HOME SELF-CARE
== END 2022-11-24 15:11 | disposition home or self-care (01) | DRG 682 ==
LOC: EC 13:00 → 3SCARD 16:28
PROVIDERS: ADMIT Internal Medicine; ATTEND Internal Medicine
PROC: 0DJD8ZZ Inspection of Lower Intestinal Tract, Via Natural or Artificial Opening Endoscopic (ICD-10-PCS; principal; 2022-11-19 10:00)
PROC: 0DB78ZX Excision of Stomach, Pylorus, Via Natural or Artificial Opening Endoscopic, Diagnostic (ICD-10-PCS; principal; 2022-11-19 10:00)
DX: N17.9 Acute kidney failure, unspecified (principal); K57.91 Diverticulosis of intestine, part unspecified, without perforation or abscess with bleeding; E87.20 Acidosis, unspecified; F33.9 Major depressive disorder, recurrent, unspecified; I48.21 Permanent atrial fibrillation; K52.9 Noninfective gastroenteritis and colitis, unspecified; Z79.01 Long term (current) use of anticoagulants; D50.0 Iron deficiency anemia secondary to blood loss (chronic); E78.5 Hyperlipidemia, unspecified; E83.42 Hypomagnesemia; E86.0 Dehydration; E87.5 Hyperkalemia; F41.1 Generalized anxiety disorder; G40.909 Epilepsy, unspecified, not intractable, without status epilepticus; I10 Essential (primary) hypertension; I25.10 Atherosclerotic heart disease of native coronary artery without angina pectoris; D72.829 Elevated white blood cell count, unspecified; I25.2 Old myocardial infarction; I08.1 Rheumatic disorders of both mitral and tricuspid valves; I95.9 Hypotension, unspecified; K29.70 Gastritis, unspecified, without bleeding; Z79.02 Long term (current) use of antithrombotics/antiplatelets; Z79.899 Other long term (current) drug therapy; G51.0 Bell's palsy; K21.9 Gastro-esophageal reflux disease without esophagitis; Z71.3 Dietary counseling and surveillance; Z28.311 Partially vaccinated for COVID-19; Z28.21 Immunization not carried out because of patient refusal; R33.9 Retention of urine, unspecified; Z91.041 Radiographic dye allergy status; Z82.49 Family history of ischemic heart disease and other diseases of the circulatory system; Z87.828 Personal history of other (healed) physical injury and trauma
CPT/HCPCS: 36415; 43239; 45378; 71046; 74150; 76770; 80048; 80053; 81001; 82272; 82728; 83540; 83550; 83605; 83630; 83690; 83735; 83880; 84132; 84145; 84484; 85025; 85610; 85652; 85730; 86140; 86850; 86900; 86901; 87045; 87046; 88305; 93005; 93306; 96361; 96365; 96366; 96375; 96376; 99285

== ENCOUNTER 2024-08-30 21:19 | Observation (INO) | payer MEDICARE ==
--- NOTE | 2024-08-30 21:49 | XR ---
EXAMINATION TYPE: XR chest 2V DATE OF EXAM: 08/30/2024 COMPARISON: 11/16/2022 INDICATION: Chest pain TECHNIQUE: Frontal and lateral views of the chest are obtained. FINDINGS: The heart size is enlarged. The pulmonary vasculature is normal. The lungs are clear. IMPRESSION: 1. No acute pulmonary process. 2. [facility], Workstation: [facility], 08/30/2024 9:47 PM
[2024-08-30 21:56] LABS: Basophils % (A) 0 %; Eosinophils # (A) 0.1 k/uL (0-0.7); Eosinophils % (A) 1 %; HCT 41.3 % (39.0-53.0); HGB 13.5 gm/dL (13.0-17.5); Lymphocytes # (A) 0.6 k/uL (1.0-4.8); Lymphocytes % (A) 6 %; MCH 30.3 pg (25.0-35.0); MCHC 32.7 g/dL (31.0-37.0); MCV 92.4 fL (80.0-100.0); Mean Platelet Volume 8.3; Monocytes # (A) 1.3 k/uL (0-1.0); Monocytes % (A) 14 %; Neutrophils # (A) 6.8 k/uL (1.3-7.7); Neutrophils % (A) 76 %; Platelet Count 167 k/uL (150-450); RBC 4.46 m/uL (4.30-5.90); RDW 13.6 % (11.5-15.5); WBC 8.9 k/uL (3.8-10.6)
[2024-08-30 22:15] LABS: ALT 22 U/L (4-49); AST 26 U/L (17-59); African American GFR (CKD) 54 (>60 ml/min/1.73 sqM); Albumin 3.3 g/dL (3.5-5.0); Alkaline Phosphatase 88 U/L (38-126); Anion Gap 5 mmol/L; Blood Urea Nitrogen 15 mg/dL (9-20); Calcium 8.4 mg/dL (8.4-10.2); Carbon Dioxide 26 mmol/L (22-30); Chloride 106 mmol/L (98-107); Glucose 89 mg/dL (74-99); Magnesium 1.4 mg/dL (1.6-2.3); Non-African American GFR(CKD) 47 (>60 ml/min/1.73 sqM); Potassium 3.7 mmol/L (3.5-5.1); Sodium 137 mmol/L (137-145); Total Bilirubin 0.3 mg/dL (0.2-1.3); Total Protein 5.7 g/dL (6.3-8.2)
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
[2024-08-30 22:25] LABS: INR 0.9 (<1.2); Prothrombin Time 10.4 sec (10.0-12.5)
[2024-08-30 22:34] LABS: Partial Thromboplastin Time 21.8 sec (22.0-30.0)
[2024-08-31] MEDS: ALPRAZolam 0.5 MG TAB PO STA (00:09)
[2024-08-31] MEDS ORDERED: NITROGLYCERIN SL TABS 0.4 MG TAB SUBLINGUAL PRN (01:14)
[2024-08-31] MEDS: PANTOPRAZOLE 40 MG TABLET PO SCH (05:14)
[2024-08-31] MEDS ORDERED: ALPRAZolam 0.25 MG TAB PO PRN (07:47)
[2024-08-31 08:06] VITALS: RESP 18
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
[2024-08-31] MEDS: APIXABAN 2.5 MG TABLET PO SCH (10:05)
[2024-08-31] MEDS: PARoxetine 20 MG TAB PO SCH (10:05)
[2024-08-31] MEDS: ISOSORBIDE MONONITRATE ER 30 MG TAB.ER.24H PO SCH (10:05)
[2024-08-31] MEDS: METOPROLOL TARTRATE 25 MG TAB PO SCH (10:06)
[2024-08-31 11:22] LABS: Appearance,Urine Clear (Clear); Bilirubin,Urine Negative (Negative); Blood,Urine Negative (Negative); Color,Urine Colorless; Glucose,Urine (UA) Negative (Negative); Ketones,Urine Negative (Negative); Leukocyte Esterase,Urine Negative (Negative); Nitrite,Urine Negative (Negative); PH, Urine 6.5 (5.0-8.0); Protein,Urine Negative (Negative); Specific Gravity,Urine 1.005 (1.001-1.035); Urobilinogen,Urine <2.0 mg/dL (<2.0)
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
--- NOTE | 2024-08-31 12:44 | CA ---
Transthoracic Echo Report Name: Rubin Lambert Age: 79 Gender: M : 1945 Exam Date: 08/31/2024 10:43 Exam Location: [facility] Ht (in): 73 Wt (lb): 262 Ordering Physician: Olesya Mina Attending/Referring Phys: [id number], Leopoldo Terrazzo [employer]ile [employer]ter Juliana Watts RDCS Procedure CPT: Indications: CP Cardiac Hx: Technical Quality: Very technically difficult study Contrast 1: Total Dose (mL): Contrast 2: Total Dose (mL): MEASUREMENTS (Male / Female) Normal Values 2D ECHO LV Diastolic Diameter PLAX 4.2 cm 4.2 - 5.9 / 3.9 - 5.3 cm LV Systolic Diameter PLAX 2.9 cm IVS Diastolic Thickness 0.8 cm 0.6 - 1.0 / 0.6 - 0.9 cm LVPW Diastolic Thickness 1.1 cm 0.6 - 1.0 / 0.6 - 0.9 cm LV Relative Wall Thickness 0.5 LVOT Diameter 2.4 cm DOPPLER AV Peak Velocity 114.8 cm/s AV Peak Gradient 5.3 mmHg AV Mean Velocity 89.1 cm/s AV Mean Gradient 3.4 mmHg AV Velocity Time Integral 22.6 cm LVOT Peak Velocity 98.2 cm/s LVOT Peak Gradient 3.9 mmHg LVOT Velocity Time Integral 17.8 cm LVOT Stroke Volume 79.2 cm??? LVOT Stroke Volume Index 32.8 ml/m??? LVOT Cardiac Index 2839.3 cm???/min???m??? AV Area Cont Eq vti 3.5 cm??? AV Area Cont Eq pk 3.8 cm??? FINDINGS Left Ventricle Left ventricular ejection fraction is estimated at 55-60 %. Left ventricle not well visualized. No obvious regional wall motion abnormalities. Left ventricular wall thickness normal. Right Ventricle Right ventricle not well visualized. Unable to estimate the right ventricular systolic pressure. Right Atrium Right atrium not well visualized. Left Atrium Moderately increased left atrial area. Mitral Valve Structurally normal mitral valve. No mitral stenosis, regurgitation or prolapse. Aortic Valve Aortic valve not well visualized. No aortic valve stenosis or regurgitation. Tricuspid Valve Tricuspid valve not well visualized. No tricuspid stenosis, regurgitation or prolapse. Pulmonic Valve Pulmonic valve not well visualized. Pericardium No pericardial effusion. Aorta Aortic annulus normal. CONCLUSIONS Normal LV function Previewed by: Dr. Renny Limon MD (Electronically Signed) Final Date: 31 August 2024 12:43
[2024-08-31 15:18] VITALS: BP 108/70; PULSE 94; TEMP 98.4
--- NOTE | 2024-08-31 15:19 | P.DS ---
Providers Date of admission: 08/31/24 01:14 Expected date of discharge: 08/31/24 Attending physician: Autumn Lloyd Consults: 08/31/24 01:14 Consult Physician Routine Consulting Provider: Darlene Mccormick Consult Reason/Comments: chest pain Do you want consulting provider notified?: Yes Primary care physician: Autumn Lloyd [facility] Course: Diagnosis on discharge: Acute COVID-19 infection Episode of chest pain Underlying history of coronary artery disease with history of angioplasty and multiple stent placement in the past Low-grade fever Underlying history of chronic atrial fibrillation Underlying history of hypertension Underlying history of hyperlipidemia Underlying history of depression Underlying history of advanced dementia Hospital course: Rubin Lambert, is a 79-year-old male who presented to [facility] emergency room with a chief complaint of chest pain Vital examination on presentation revealed a temperature of 99.1 pulse 98 respiration 20 blood pressure 146/43 pulse ox 96% on room air Laboratory data revealed a white blood count of 8.9 hemoglobin 13.5 platelet count 167 BUN 15 creatinine 1.42 troponin level 0.012 magnesium 1.4 Testing in the emergency room revealed chest x-ray revealed no acute pulmonary process, cardiomegaly. EKG done in the emergency room revealed atrial fi brillation with a heart rate of 103 with nonspecific T wave and ST and T wave abnormality Patient was admitted to medical floor for further evaluation and treatment Past medical history is significant for history of coronary artery disease, with history of angioplasty and multiple stent placement in the past, history of cardiomyopathy, history of chronic atrial fibrillation, history of hypertension, history of hyperlipidemia, history of advanced dementia, history of depression. On review of systems patient is alert confused in no apparent distress, he denies any chest pain at this time, there is no fever or chills no headache or dizziness no chest pain no shortness of breath no cough no nausea or vomiting no abdominal pain no diarrhea and no urinary symptoms. On 08/31/2024 patient was seen and examined on the medical floor he is alert and oriented x 3 in no apparent distress echocardiogram was done and he had normal ejection fraction he was reevaluated by cardiology and was cleared for discharge. During this admission patient had a low-grade fever. Nasal swab for COVID-19 PCR testing was positive. Patient was having discomfort because of back pain. Patient and family member were asking that he would be discharged back to the senior living. His senior living was willing to readmit him despite positive COVID testing. At this point no need for any medication for COVID-19 infection other than Tylenol for low-grade fever. Date of onset of infection is unknown. Patient can be discharged home he needs to be evaluated closely by physician at the senior living if he develop shortness of breath he can be treated with steroids, patient can be readmitted to the hospital if he is having any further symptoms. Plan - Discharge Summary Discharge Rx Participant: No New Discharge Prescriptions: New Aspirin 81 mg PO DAILY 30 Days #30 tab Acetaminophen Tab [Tylenol Tab] 500 mg PO Q4H 30 Days #100 tablet Nitroglycerin Sl Tabs [Nitrostat] 0.4 mg SUBLINGUAL Q5M PRN 30 Days #25 tab PRN Reason: Chest Pain Continue ALPRAZolam [Xanax] 0.5 mg PO BID PRN PRN Reason: Anxiety Isosorbide Mononitrate ER [Imdur] 30 mg PO DAILY Divalproex [Depakote] 500 mg PO HS PARoxetine HCL 40 mg PO BID Atorvastatin [Lipitor] 80 mg PO HS #30 tab Omeprazole 20 mg PO DAILY Apixaban [Eliquis] 2.5 mg PO BID tab Hydrocortisone Cream [Hydrocortisone 1% Cream] 1 applic TOPICAL QID PRN PRN Reason: irritation Metoprolol Tartrate [Lopressor] 25 mg PO BID@0800,1700 Artificial Tears-Hypromellose [Artificial Tear Drops] 1 drop BOTH EYES QID PRN PRN Reason: Dry Eye(S) Discharge Medication List ALPRAZolam [Xanax] 0.5 mg PO BID PRN 06/02/18 [History] Divalproex [Depakote] 500 mg PO HS 06/02/18 [History] Isosorbide Mononitrate ER [Imdur] 30 mg PO DAILY 06/02/18 [History] PARoxetine HCL 40 mg PO BID 06/02/18 [History] Atorvastatin [Lipitor] 80 mg PO HS #30 tab 06/06/18 [Rx] Omeprazole 20 mg PO DAILY 11/16/22 [History] Apixaban [Eliquis] 2.5 mg PO BID tab 11/24/22 [Rx] Acetaminophen Tab [Tylenol Tab] 500 mg PO Q4H 30 Days #100 tablet 08/31/24 [Rx] Artificial Tears-Hypromellose [Artificial Tear Drops] 1 drop BOTH EYES QID PRN 08/31/24 [History] Aspirin 81 mg PO DAILY 30 Days #30 tab 08/31/24 [Rx] Hydrocortisone Cream [Hydrocortisone 1% Cream] 1 applic TOPICAL QID PRN 08/31/24 [History] Metoprolol Tartrate [Lopressor] 25 mg PO BID@0800,1700 08/31/24 [History] Nitroglycerin Sl Tabs [Nitrostat] 0.4 mg SUBLINGUAL Q5M PRN 30 Days #25 tab 08/31/24 [Rx] Follow up Appointment(s)/Referral(s): Autumn Lloyd MD [Primary Care Provider] - 1-2 days
[2024-08-31] MEDS ORDERED: ATORVASTATIN 80 MG TAB PO SCH (21:00)
[2024-08-31] MEDS ORDERED: DIVALPROEX 500 MG TABLET.DR PO SCH (21:00)
[2024-08-31] MEDS ORDERED: ALPRAZolam 0.5 MG TAB PO SCH (21:00)
[2024-09-01] MEDS ORDERED: ASPIRIN 325 MG TAB PO SCH (09:00)
== END 2024-08-31 16:27 ==
LOC: EC 21:19 → 6NMEDSUR 08-31 01:14
PROVIDERS: ADMIT Internal Medicine; ATTEND Internal Medicine
DX: R07.89 Other chest pain (principal); U07.1 COVID-19; I48.19 Other persistent atrial fibrillation; I25.10 Atherosclerotic heart disease of native coronary artery without angina pectoris; I25.5 Ischemic cardiomyopathy; I48.92 Unspecified atrial flutter; I08.3 Combined rheumatic disorders of mitral, aortic and tricuspid valves; I10 Essential (primary) hypertension; E78.5 Hyperlipidemia, unspecified; F03.C3 Unspecified dementia, severe, with mood disturbance; F32.A Depression, unspecified; E66.9 Obesity, unspecified; Z68.34 Body mass index [BMI] 34.0-34.9, adult; M54.9 Dorsalgia, unspecified; I25.2 Old myocardial infarction; Z79.01 Long term (current) use of anticoagulants; Z79.82 Long term (current) use of aspirin; Z79.899 Other long term (current) drug therapy; Z91.041 Radiographic dye allergy status; Z95.5 Presence of coronary angioplasty implant and graft; Z11.59 Encounter for screening for other viral diseases
CPT/HCPCS: 99285; 36415; 93005 ×2; 80053; 83735; 84484 ×2; 85025; 85610; 85730; 81003; 87636; 71046; G0378; C8929; Q9957; 93306

== ENCOUNTER 2024-10-13 23:39 | Inpatient (IN) | payer MEDICARE ==
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
[2024-10-14 00:35] LABS: Basophils % (A) 0 %; Eosinophils # (A) 0.4 k/uL (0-0.7); Eosinophils % (A) 5 %; HCT 42.9 % (39.0-53.0); HGB 13.4 gm/dL (13.0-17.5); Lymphocytes # (A) 1.5 k/uL (1.0-4.8); Lymphocytes % (A) 17 %; MCH 28.9 pg (25.0-35.0); MCHC 31.3 g/dL (31.0-37.0); MCV 92.4 fL (80.0-100.0); Mean Platelet Volume 7.8; Monocytes # (A) 0.8 k/uL (0-1.0); Monocytes % (A) 10 %; Neutrophils # (A) 5.4 k/uL (1.3-7.7); Neutrophils % (A) 65 %; Platelet Count 218 k/uL (150-450); RBC 4.65 m/uL (4.30-5.90); RDW 14.3 % (11.5-15.5); WBC 8.4 k/uL (3.8-10.6)
[2024-10-14 01:07] LABS: ALT 18 U/L (4-49); AST 20 U/L (17-59); African American GFR (CKD) 48 (>60 ml/min/1.73 sqM); Albumin 3.4 g/dL (3.5-5.0); Alkaline Phosphatase 108 U/L (38-126); Anion Gap 6 mmol/L; Blood Urea Nitrogen 23 mg/dL (9-20); C Reactive Protein 0.8 mg/dL (<1.0); Carbon Dioxide 24 mmol/L (22-30); Chloride 109 mmol/L (98-107); Glucose 90 mg/dL (74-99); Non-African American GFR(CKD) 41 (>60 ml/min/1.73 sqM); Sodium 139 mmol/L (137-145); Total Bilirubin 0.4 mg/dL (0.2-1.3); Total Protein 6.2 g/dL (6.3-8.2)
[2024-10-14] MEDS ORDERED: NALOXONE 0.4 MG/ML 1 ML VIAL IV PRN (01:41)
[2024-10-14] MEDS ORDERED: ACETAMINOPHEN TAB 325 MG TAB PO PRN (01:41)
[2024-10-14] MEDS ORDERED: IBUPROFEN 400 MG TAB PO PRN (01:41)
[2024-10-14] MEDS ORDERED: VANCOMYCIN IV PER PHARMACY 1 EACH MISC MISCELLANE PRN (01:46)
[2024-10-14] MEDS: SODIUM CHLORIDE 0.9% 1,000 ML IV SCH (01:47)
[2024-10-14] MEDS: VANCOMYCIN 1,750 MG in SODIUM CHLORIDE 0.9% 500 ML 500 ML IVPB ONE (02:42)
[2024-10-14 10:36] LABS: Erythrocyte Sedimentation Rate 20 mm/Hr (0-20)
[2024-10-14] MEDS ORDERED: ARTIFICIAL TEARS-HYPROMELLOSE DROPS 15 ML BTL BOTH EYES PRN (11:54)
[2024-10-14] MEDS ORDERED: NITROGLYCERIN SL TABS 0.4 MG TAB SUBLINGUAL PRN (11:54)
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
[2024-10-14] MEDS: ACETAMINOPHEN TAB 500 MG TAB PO SCH (12:57)
[2024-10-14] MEDS: LIDOCAINE 1% INJ 10MG/ML (20 ML MDV) SQ ONE (15:17)
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
--- NOTE | 2024-10-14 15:44 | P.PCN ---
Description of Procedure: Preop diagnosis wound on on the anterior aspect of the left thigh measurement is 2 x 2 cm and also left lower extremity 1 x 1 cm and patient has a sacral wound 2 x 2 cm with some discoloration of the skin Postop same left thigh wound measurement is 2 x 2 x 0.5 cm and left gluteal wound 2 x 2 x 0.3 cm Left thigh wound was prepped and draped applied usual sterile manner 1% lidocaine from an infected right thigh wound using scissors we did the debridement selective debridement down to subcu tissue some devitalized tissue was removed which was sent for deep culture no active bleeding was not left sacral wound was prepped and 1% lidocaine were infiltrated using sharp scissor we did the selective debridement was performed down to subtenons tissue no active bleeding was noted we placed extra silver and dressing applied patient tarted the procedure well plan is patient IV antibiotic attic under care of infectious disease dressing should be changed every 48 hours using extra silver
[2024-10-14] MEDS: METOPROLOL TARTRATE 25 MG TAB PO SCH (16:37)
[2024-10-14] MEDS: ALPRAZolam 0.5 MG TAB PO PRN (18:35)
[2024-10-14] MEDS: PARoxetine 20 MG TAB PO SCH (19:46)
[2024-10-14] MEDS: ATORVASTATIN 80 MG TAB PO SCH (19:46)
[2024-10-14] MEDS: APIXABAN 2.5 MG TABLET PO SCH (19:46)
[2024-10-14] MEDS: DIVALPROEX 500 MG TABLET.DR PO SCH (19:46)
[2024-10-14] MEDS: VANCOMYCIN 1,750 MG in SODIUM CHLORIDE 0.9% 500 ML 500 ML IVPB SCH (21:56)
[2024-10-15] MEDS ORDERED: VANCOMYCIN 1,750 MG in SODIUM CHLORIDE 0.9% 500 ML 500 ML IVPB SCH (03:00)
[2024-10-15] MEDS: ISOSORBIDE MONONITRATE ER 30 MG TAB.ER.24H PO SCH (08:36)
[2024-10-15] MEDS: ASPIRIN 81 MG PO SCH (08:36)
[2024-10-15] MEDS: PANTOPRAZOLE 40 MG TABLET PO SCH (08:37)
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
[2024-10-15 09:55] LABS: Basophils # (A) 0.02 X 10*3/uL (0.00-0.10); Basophils % (A) 0.3 %; Eosinophils # (A) 0.17 X 10*3/uL (0.04-0.35); Eosinophils % (A) 2.2 %; HGB 13.4 g/dL (13.0-17.0); Lymphocytes # (A) 1.99 X 10*3/uL (0.90-5.00); MCH 28.9 pg (27.0-32.0); MCHC 30.5 g/dL (32.0-37.0); MCV 94.8 FL (80.0-97.0); Mean Platelet Volume 10.4 FL (9.5-12.2); Monocytes # (A) 1.13 X 10*3/uL (0.20-1.00); Monocytes % (A) 14.8 %; NRBC Per 100 WBC 0 X 10*3/uL (0.00-0.01); Neutrophils # (A) 4.31 X 10*3/uL (1.80-7.70); Neutrophils % (A) 56.3 %; Platelet Count 225 X 10*3/uL (140-440); RBC 4.64 X 10*6/uL (4.40-5.60); RDW 14.4 % (11.5-14.5); WBC 7.65 X 10*3/uL (4.50-10.00)
--- NOTE | 2024-10-15 09:58 | P.PN ---
Subjective Progress Note Date: 10/15/24 Rubin Lambert, is a 79-year-old male who presented to [facility] emergency room with a chief complaint of multiple wounds on the lower extremities and the sacral area, with pain and drainage, failed outpatient therapy with oral antibiotics. He was evaluated in the emergency room vital examination on presentation revealed a temperature of 97.8 pulse 75 respiration 16 blood pressure 123/81 pulse ox 97% on room air Laboratory data revealed a white blood count of 8.4 hemoglobin 13.4 platelet count 218 BUN 23 creatinine 1.58 Patient was admitted to medical floor for further evaluation and treatment Past medical history is significant for coronary artery disease, with history of angioplasty and stent placement, history of hypertension, history of hyperlipidemia, history of persistent atrial fibrillation maintained on Eliquis, and history of severe dementia On review of systems patient is alert confused in no apparent distress, he is complaining of pain at the site of his open wounds, otherwise he denies any complaints, there is no fever or chills no headache or dizziness no chest pain no shortness of breath no cough no nausea or vomiting no abdominal pain no diarrhea no urinary symptoms On 10/15/2024 patient is alert and oriented x 3. Patient underwent debridement with Dr. Mora. Patient remains on IV vancomycin. Infectious disease and vascular surgery following. Current vital signs temp 98.4, heart rate 78, respiratory rate 17, blood pressure 114/73 with a pulse ox of 96% on room air Objective - Vital Signs Vital signs: Vital Signs Temp 98.4 F 10/15/24 07:54 Pulse 78 10/15/24 07:54 Resp 17 10/15/24 07:54 BP 114/73 10/15/24 07:54 Pulse Ox 92 L 10/15/24 07:54 FiO2 Intake & Output 10/14/24 10/15/24 10/15/24 18:59 06:59 18:59 Intake Total 1680 1295 Balance 1680 1295 Intake: Intake, IV Titration 900 1175 Amount Sodium Chloride 0.9% 1, 900 675 000 ml @ 75 mls/hr IV . [id number] NAYLA Rx#:[id number] Vancomycin 1,750 mg In 500 Sodium Chloride 0.9% 500 ml 500 ml @ 167 mls/hr IVPB Q24H NAYLA Rx#: [id number] Oral 780 120 Other: Voiding Method Urinal Urinal Urinal Diaper Diaper Diaper Incontinent Incontinent Incontinent # Voids 4 6 - Exam In general patient is alert and oriented x 3 in no distress HEENT head normocephalic and atraumatic Neck is supple no JVD no goiter no lymphadenopathy no carotid bruit Chest examination is clear to auscultation no crackles no wheezing Cardiac exam reveals regular heart sounds S1 and S2 no gallops no murmurs Abdomen is soft nontender no organomegaly with normal bowel sounds Extremity exam reveals no edema no cyanosis or clubbing, patient has multiple open wounds on the lower extremities, the largest are on the anterior aspect of the left thigh, posterior aspect of the left calf, and in the sacral area. Neurological examination reveals no gross focal deficits - Labs CBC & Chem 7: 10/15/24 03:41 10/14/24 00:16 Labs: Abnormal Lab Results - Last 24 Hours (Table) 10/15/24 Range/Units 03:41 MCHC 30.5 L (32.0-37.0) g/dL Monocytes # 1.13 H (0.20-1.00) X 10*3/uL Microbiology - Last 24 Hours (Table) 10/14/24 00:20 Gram Stain - Preliminary Leg - Left Assessment and Plan Assessment: Bilateral lower extremity cellulitis with open wounds, with drainage, failed outpatient therapy with oral antibiotics Underlying history of hypertension Underlying history of hyperlipidemia Underlying history of coronary artery disease with history of angioplasty and stent placement Underlying history of chronic kidney disease stage III Underlying history of chronic persistent atrial fibrillation maintained on Eliquis Underlying history of gastroesophageal reflux disease Underlying history of dementia At this time patient was seen and examined Home medications reviewed and reordered Blood cultures and wound cultures obtained Patient was started on IV vancomycin in the emergency room will continue at this time Infectious disease and wound care consultation requested Status post debridement on 10/14/2024 For DVT prophylaxis patient is on Eliquis Will follow closely
[2024-10-15 10:06] LABS: Glucose,Whole Blood 109 mg/dL (70-110)
[2024-10-15 10:31] LABS: ALT 18 U/L (10-49); AST 21 U/L (14-35); Albumin 3.5 g/dL (3.8-4.9); Alkaline Phosphatase 112 U/L (41-126); BUN/Creat Ratio 12.93 Ratio (12.00-20.00); Blood Urea Nitrogen 19.4 mg/dL (9.0-27.0); Calcium 8.8 mg/dL (8.7-10.3); Carbon Dioxide 22.8 mmol/L (21.6-31.8); Chloride 108 mmol/L (96-109); Globulin 2.5 g/dL (1.6-3.3); Glucose 91 mg/dL (70-110); Potassium 4.6 mmol/L (3.5-5.5); Sodium 142 mmol/L (135-145); Total Bilirubin 0.3 mg/dL (0.3-1.2)
--- NOTE | 2024-10-15 15:10 | P.PN ---
Subjective Progress Note Date: 10/15/24 Principal diagnosis: Reason for follow-up is left lower extremity and left gluteal abscess MRSA Patient is a 79-year-old male with past medical history significant for hypertension hyperlipidemia coronary artery disease LA seizure disorder presenting to the hospital from the local residential concerning for multiple abscesses of the left lower extremity as well as to the left gluteal cleft in this patient status post I&D by surgery on 10/14/2024. On today's evaluation that is 10/15/2024, Patient is afebrile patient is currently on room air and denies having any shortness of breath, the patient denies any chest pain or cough, the patient denies any nausea vomiting did not have any abdominal pain and no diarrhea denies any worsening pain to the left lower extremity. Patient did have white count of 7.65 creatinine is 1.5 cultures with presumptive MRSA Objective - Vital Signs Vital signs: Vital Signs Temp 97.4 F L 10/15/24 13:05 Pulse 93 10/15/24 13:05 Resp 19 10/15/24 13:05 BP 96/57 10/15/24 13:05 Pulse Ox 95 10/15/24 13:05 FiO2 Intake & Output 10/14/24 10/15/24 10/15/24 18:59 06:59 18:59 Intake Total 1680 1295 120 Balance 1680 1295 120 Intake: Intake, IV Titration 900 1175 Amount Sodium Chloride 0.9% 1, 900 675 000 ml @ 75 mls/hr IV . [id number] NAYLA Rx#:[id number] Vancomycin 1,750 mg In 500 Sodium Chloride 0.9% 500 ml 500 ml @ 167 mls/hr IVPB Q24H NAYLA Rx#: [id number] Oral 780 120 120 Other: Voiding Method Urinal Urinal Urinal Diaper Diaper Diaper Incontinent Incontinent Incontinent # Voids 4 6 - Exam GENERAL DESCRIPTION: An elderly male up in the room in no distress RESPIRATORY SYSTEM: Unlabored breathing , decreased breath sounds at bases HEART: S1 S2 regular rate and rhythm , ABDOMEN: Soft , no tenderness EXTREMITIES: Left lower extremity wounds are currently dressed left gluteal cleft did have a small area of swelling and induration and drainage - Labs CBC & Chem 7: 10/15/24 03:41 10/15/24 03:41 Labs: Abnormal Lab Results - Last 24 Hours (Table) 10/15/24 10/15/24 Range/Units 03:41 03:41 MCHC 30.5 L (32.0-37.0) g/dL Monocytes # 1.13 H (0.20-1.00) X 10*3/uL Est GFR (CKD-EPI) 47 L (>=60) Total Protein 6.0 L (6.2-8.2) g/dL Albumin 3.5 L (3.8-4.9) g/dL Albumin/Globulin Ratio 1.40 L (1.60-3.17) Ratio Microbiology - Last 24 Hours (Table) 10/14/24 00:16 Blood Culture - Preliminary Blood 10/14/24 00:20 Gram Stain - Preliminary Leg - Left Wound Culture - Preliminary Presumptive MRSA Assessment and Plan (1) Cellulitis and abscess of left lower extremity Current Visit: Yes Status: Acute Code(s): L03.116 - CELLULITIS OF LEFT LOWER LIMB; L02.416 - CUTANEOUS ABSCESS OF LEFT LOWER LIMB SNOMED Code(s): 112520596 (2) Abscess, gluteal, left Current Visit: Yes Status: Acute Code(s): L02.31 - CUTANEOUS ABSCESS OF BUTTOCK SNOMED Code(s): 76308207 (3) MRSA (methicillin resistant staph aureus) culture positive Current Visit: Yes Status: Acute Code(s): Z22.322 - CARRIER OR SUSPECTED CARRIER OF METHICILLIN RESIS STAPH SNOMED Code(s): 763022618 Plan: 1patient presented to hospital with multiple abscess to the left lower extremity specially of the thigh and left lower leg area did have evidence of induration and some fluctuation concerning for cellulitis sepsis likely related to gram-positive skin pari especially MRSA. 2patient is status post surgical evaluation and drainage of the abscess culture currently preserved MRSA 3patient is appropriately covered with vancomycin pharmacy to dose and will watch his creatinine closely which is currently down to 1.5 Dictation was produced using [employer] software. please excuse any grammatical, word or spelling errors.
[2024-10-16 11:32] LABS: Basophils % (A) 0 %; Eosinophils # (A) 0.3 k/uL (0-0.7); Eosinophils % (A) 5 %; HCT 40.9 % (39.0-53.0); HGB 12.8 gm/dL (13.0-17.5); Lymphocytes # (A) 0.9 k/uL (1.0-4.8); Lymphocytes % (A) 17 %; MCH 29.4 pg (25.0-35.0); MCHC 31.4 g/dL (31.0-37.0); MCV 93.6 fL (80.0-100.0); Mean Platelet Volume 7.7; Monocytes # (A) 0.5 k/uL (0-1.0); Monocytes % (A) 10 %; Neutrophils # (A) 3.5 k/uL (1.3-7.7); Neutrophils % (A) 66 %; Platelet Count 181 k/uL (150-450); RBC 4.37 m/uL (4.30-5.90); RDW 14.4 % (11.5-15.5); WBC 5.3 k/uL (3.8-10.6)
[2024-10-16 11:47] LABS: ALT 24 U/L (4-49); AST 30 U/L (17-59); African American GFR (CKD) 49 (>60 ml/min/1.73 sqM); Albumin 3.1 g/dL (3.5-5.0); Albumin/Globulin Ratio 1.2; Alkaline Phosphatase 98 U/L (38-126); Anion Gap 5 mmol/L; Blood Urea Nitrogen 25 mg/dL (9-20); Calcium 8.7 mg/dL (8.4-10.2); Carbon Dioxide 23 mmol/L (22-30); Chloride 110 mmol/L (98-107); Globulin 2.5 g/dL; Glucose 109 mg/dL (74-99); Non-African American GFR(CKD) 43 (>60 ml/min/1.73 sqM); Potassium 4.4 mmol/L (3.5-5.1); Sodium 138 mmol/L (137-145); Total Bilirubin 0.5 mg/dL (0.2-1.3); Total Protein 5.6 g/dL (6.3-8.2)
--- NOTE | 2024-10-16 17:22 | P.PN ---
Subjective Progress Note Date: 10/16/24 Rubin Lambert, is a 79-year-old male who presented to [facility] emergency room with a chief complaint of multiple wounds on the lower extremities and the sacral area, with pain and drainage, failed outpatient therapy with oral antibiotics. He was evaluated in the emergency room vital examination on presentation revealed a temperature of 97.8 pulse 75 respiration 16 blood pressure 123/81 pulse ox 97% on room air Laboratory data revealed a white blood count of 8.4 hemoglobin 13.4 platelet count 218 BUN 23 creatinine 1.58 Patient was admitted to medical floor for further evaluation and treatment Past medical history is significant for coronary artery disease, with history of angioplasty and stent placement, history of hypertension, history of hyperlipidemia, history of persistent atrial fibrillation maintained on Eliquis, and history of severe dementia On review of systems patient is alert confused in no apparent distress, he is complaining of pain at the site of his open wounds, otherwise he denies any complaints, there is no fever or chills no headache or dizziness no chest pain no shortness of breath no cough no nausea or vomiting no abdominal pain no diarrhea no urinary symptoms On 10/15/2024 patient is alert and oriented x 3. Patient underwent debridement with Dr. Mora. Patient remains on IV vancomycin. Infectious disease and vascular surgery following. Current vital signs temp 98.4, heart rate 78, respiratory rate 17, blood pressure 114/73 with a pulse ox of 96% on room air On 10/16/2024 patient was seen and examined on the medical floor, he is more somnolent today, he denies any complaints, vital exam reveals a temperature of 98.2 pulse 83 respiration 16 blood pressure 122/56 pulse ox 98% on room air, white blood count 5.3 hemoglobin 12.8 platelet count 181 BUN 25 creatinine 1.53, patient is maintained on IV vancomycin infectious disease are following, for DVT prophylaxis patient is maintained on Eliquis. Continue current medications will follow in a.m. Objective - Vital Signs Vital signs: Vital Signs Temp 97.5 F L 10/16/24 13:39 Pulse 68 10/16/24 13:39 Resp 17 10/16/24 13:39 BP 99/49 10/16/24 13:39 Pulse Ox 98 10/16/24 13:39 FiO2 Intake & Output 10/15/24 10/16/24 10/16/24 18:59 06:59 18:59 Intake Total 620 Output Total 100 Balance 620 -100 Intake: Oral 620 Output: Urine 100 Other: Voiding Method Urinal Toilet Urinal Diaper Urinal Diaper Incontinent Diaper Incontinent Incontinent # Voids 2 2 2 # Bowel Movements 1 - Exam In general patient is alert and oriented x 3 in no distress HEENT head normocephalic and atraumatic Neck is supple no JVD no goiter no lymphadenopathy no carotid bruit Chest examination is clear to auscultation no crackles no wheezing Cardiac exam reveals regular heart sounds S1 and S2 no gallops no murmurs Abdomen is soft nontender no organomegaly with normal bowel sounds Extremity exam reveals no edema no cyanosis or clubbing, patient has multiple open wounds on the lower extremities, the largest are on the anterior aspect of the left thigh, posterior aspect of the left calf, and in the sacral area. Neurological examination reveals no gross focal deficits - Labs CBC & Chem 7: 10/16/24 11:11 10/16/24 11:11 Labs: Abnormal Lab Results - Last 24 Hours (Table) 10/16/24 10/16/24 Range/Units 11:11 11:11 Hgb 12.8 L (13.0-17.5) gm/dL Lymphocytes # 0.9 L (1.0-4.8) k/uL Chloride 110 H (98-107) mmol/L BUN 25 H (9-20) mg/dL Creatinine 1.53 H (0.66-1.25) mg/dL Glucose 109 H (74-99) mg/dL Total Protein 5.6 L (6.3-8.2) g/dL Albumin 3.1 L (3.5-5.0) g/dL Microbiology - Last 24 Hours (Table) 10/14/24 00:20 Anaerobic Culture - Preliminary Leg - Left 10/14/24 00:16 Blood Culture - Preliminary Blood 10/14/24 00:20 Gram Stain - Final Leg - Left Wound Culture - Final Methicillin resist S. aureus 10/14/24 12:42 Blood Culture - Preliminary Blood 10/14/24 15:28 Gram Stain - Preliminary Thigh - Left Tissue Culture - Preliminary Presumptive MRSA Assessment and Plan Plan: Bilateral lower extremity cellulitis with open wounds, with drainage, failed outpatient therapy with oral antibiotics Underlying history of hypertension Underlying history of hyperlipidemia Underlying history of coronary artery disease with history of angioplasty and stent placement Underlying history of chronic kidney disease stage III Underlying history of chronic persistent atrial fibrillation maintained on Eliquis Underlying history of gastroesophageal reflux disease Underlying history of dementia At this time patient was seen and examined Home medications reviewed and reordered Blood cultures and wound cultures obtained Patient was started on IV vancomycin in the emergency room will continue at this time Infectious disease and wound care consultation requested For DVT prophylaxis patient is on Eliquis Will follow closely
[2024-10-16] MEDS ORDERED: ZINC OXIDE PASTE (Z-GUARD) 1 APPLIC TOPICAL PRN (18:04)
[2024-10-16] MEDS: VANCOMYCIN 1,750 MG in SODIUM CHLORIDE 0.9% 500 ML 500 ML IVPB SCH (20:40)
--- NOTE | 2024-10-16 21:06 | P.PN ---
Subjective Progress Note Date: 10/16/24 Principal diagnosis: Reason for follow-up is left lower extremity and left gluteal abscess MRSA Patient is a 79-year-old male with past medical history significant for hypertension hyperlipidemia coronary artery disease [place] seizure disorder presenting to the hospital from the local half-way concerning for multiple abscesses of the left lower extremity as well as to the left gluteal cleft in this patient status post I&D by surgery on 10/14/2024. On today's evaluation that is 10/16/2024, patient has been afebrile, patient is breathing comfortably and is currently on room air, patient denies having any significant cough no chest pain, patient denies nausea vomiting or diarrhea and no abdominal pain and pain to the left lower extremity and is currently control led. Culture currently growing presumptive MRSA he did have a white count 5.3 creatinine is 1.53 Objective - Vital Signs Vital signs: Vital Signs Temp 97.5 F L 10/16/24 07:43 Pulse 88 10/16/24 07:43 Resp 15 10/16/24 07:43 BP 107/64 10/16/24 07:43 Pulse Ox 97 10/16/24 07:43 FiO2 Intake & Output 10/15/24 10/16/24 10/16/24 18:59 06:59 18:59 Intake Total 620 Output Total 100 Balance 620 -100 Intake: Oral 620 Output: Urine 100 Other: Voiding Method Urinal Toilet Urinal Diaper Urinal Diaper Incontinent Diaper Incontinent Incontinent # Voids 2 2 # Bowel Movements 1 - Exam GENERAL DESCRIPTION: An elderly male up in the room in no distress RESPIRATORY SYSTEM: Unlabored breathing , decreased breath sounds at bases HEART: S1 S2 regular rate and rhythm , ABDOMEN: Soft , no tenderness EXTREMITIES: Left lower extremity wounds are currently dressed left gluteal cleft did have a small area of swelling and induration and drainage - Labs CBC & Chem 7: 10/16/24 11:11 10/16/24 11:11 Labs: Abnormal Lab Results - Last 24 Hours (Table) 10/16/24 10/16/24 Range/Units 11:11 11:11 Hgb 12.8 L (13.0-17.5) gm/dL Lymphocytes # 0.9 L (1.0-4.8) k/uL Chloride 110 H (98-107) mmol/L BUN 25 H (9-20) mg/dL Creatinine 1.53 H (0.66-1.25) mg/dL Glucose 109 H (74-99) mg/dL Total Protein 5.6 L (6.3-8.2) g/dL Albumin 3.1 L (3.5-5.0) g/dL Microbiology - Last 24 Hours (Table) 10/14/24 00:20 Gram Stain - Final Leg - Left Wound Culture - Final Methicillin resist S. aureus 10/14/24 12:42 Blood Culture - Preliminary Blood 10/14/24 15:28 Gram Stain - Preliminary Thigh - Left Tissue Culture - Preliminary Presumptive MRSA 10/14/24 00:16 Blood Culture - Preliminary Blood Assessment and Plan (1) Cellulitis and abscess of left lower extremity Current Visit: Yes Status: Acute Code(s): L03.116 - CELLULITIS OF LEFT LOWER LIMB; L02.416 - CUTANEOUS ABSCESS OF LEFT LOWER LIMB SNOMED Code(s): 846483540 (2) Abscess, gluteal, left Current Visit: Yes Status: Acute Code(s): L02.31 - CUTANEOUS ABSCESS OF [facility] SNOMED Code(s): 43780138 (3) MRSA (methicillin resistant staph aureus) culture positive Current Visit: Yes Status: Acute Code(s): Z22.322 - CARRIER OR SUSPECTED CARRIER OF METHICILLIN RESIS STAPH SNOMED Code(s): 797400285 Plan: 1patient presented to hospital with multiple abscess to the left lower extremity specially of the thigh and left lower leg area did have evidence of induration and some fluctuation concerning for cellulitis sepsis likely related to gram-positive skin pari especially MRSA. 2patient is status post surgical evaluation and drainage of the abscess culture currently growing presumptive MRSA 3patient i currently being treated with vancomycin pharmacy to dose, we discussed with the patient case manager the patient did not go to rehab for short course of IV antibiotic therapy because of his multiple abscess Dictation was produced using [employer] dictation software. please excuse any gramma tical, word or spelling errors. Time with Patient: Less than 30
[2024-10-17 05:28] LABS: African American GFR (CKD) 60 (>60 ml/min/1.73 sqM); Non-African American GFR(CKD) 52 (>60 ml/min/1.73 sqM)
--- NOTE | 2024-10-17 09:15 | P.PN ---
Subjective Progress Note Date: 10/17/24 Rubin Lambert, is a 79-year-old male who presented to [facility] emergency room with a chief complaint of multiple wounds on the lower extremities and the sacral area, with pain and drainage, failed outpatient therapy with oral antibiotics. He was evaluated in the emergency room vital examination on presentation revealed a temperature of 97.8 pulse 75 respiration 16 blood pressure 123/81 pulse ox 97% on room air Laboratory data revealed a white blood count of 8.4 hemoglobin 13.4 platelet count 218 BUN 23 creatinine 1.58 Patient was admitted to medical floor for further evaluation and treatment Past medical history is significant for coronary artery disease, with history of angioplasty and stent placement, history of hypertension, history of hyperlipidemia, history of persistent atrial fibrillation maintained on Eliquis, and history of severe dementia On review of systems patient is alert confused in no apparent distress, he is complaining of pain at the site of his open wounds, otherwise he denies any complaints, there is no fever or chills no headache or dizziness no chest pain no shortness of breath no cough no nausea or vomiting no abdominal pain no diarrhea no urinary symptoms On 10/15/2024 patient is alert and oriented x 3. Patient underwent debridement with Dr. Mora. Patient remains on IV vancomycin. Infectious disease and vascular surgery following. Current vital signs temp 98.4, heart rate 78, respiratory rate 17, blood pressure 114/73 with a pulse ox of 96% on room air On 10/16/2024 patient was seen and examined on the medical floor, he is more somnolent today, he denies any complaints, vital exam reveals a temperature of 98.2 pulse 83 respiration 16 blood pressure 122/56 pulse ox 98% on room air, white blood count 5.3 hemoglobin 12.8 platelet count 181 BUN 25 creatinine 1.53, patient is maintained on IV vancomycin infectious disease are following, for DVT prophylaxis patient is maintained on Eliquis. Continue current medications will follow in a.m. on 10/17/2024 patient is alert and oriented 3. Patient currently sitting up in chair eating breakfast.creatinine 1.31. Current vital signs temp 97.7, heart rate 102, respiratory rate 18, blood pressure 112/74 with pulse ox of 97% on room air. Patient denies chest pain or shortness breath. Patient denies nausea vomiting or diarrhea. Patient denies any urinary burning or frequency Objective - Vital Signs Vital signs: Vital Signs Temp 97.7 F 10/17/24 07:33 Pulse 102 H 10/17/24 07:33 Resp 18 10/17/24 07:33 BP 112/74 10/17/24 07:33 Pulse Ox 97 10/17/24 07:33 FiO2 Intake & Output 10/16/24 10/17/24 10/17/24 18:59 06:59 18:59 Intake Total 500 Balance 500 Intake: Oral 500 Other: Voiding Method Urinal Toilet Toilet Diaper Urinal Diaper Incontinent Diaper Incontinent Incontinent # Voids 1 - Exam In general patient is alert and oriented x 3 in no distress HEENT head normocephalic and atraumatic Neck is supple no JVD no goiter no lymphadenopathy no carotid bruit Chest examination is clear to auscultation no crackles no wheezing Cardiac exam reveals regular heart sounds S1 and S2 no gallops no murmurs Abdomen is soft nontender no organomegaly with normal bowel sounds Extremity exam reveals no edema no cyanosis or clubbing, patient has multiple open wounds on the lower extremities, the largest are on the anterior aspect of the left thigh, posterior aspect of the left calf, and in the sacral area. Neurological examination reveals no gross focal deficits - Labs CBC & Chem 7: 10/16/24 11:11 10/17/24 04:31 Labs: Abnormal Lab Results - Last 24 Hours (Table) 10/16/24 10/16/24 10/17/24 Range/Units 11:11 11:11 04:31 Hgb 12.8 L (13.0-17.5) gm/dL Lymphocytes # 0.9 L (1.0-4.8) k/uL Chloride 110 H (98-107) mmol/L BUN 25 H (9-20) mg/dL Creatinine 1.53 H 1.31 H (0.66-1.25) mg/dL Glucose 109 H (74-99) mg/dL Total Protein 5.6 L (6.3-8.2) g/dL Albumin 3.1 L (3.5-5.0) g/dL Microbiology - Last 24 Hours (Table) 10/14/24 12:42 Blood Culture - Preliminary Blood 10/14/24 15:28 Gram Stain - Preliminary Thigh - Left Tissue Culture - Preliminary Methicillin resist S. aureus Coagulase Negative Staph Enterococcus faecalis 10/14/24 00:20 Anaerobic Culture - Preliminary Leg - Left 10/14/24 00:16 Blood Culture - Preliminary Blood 10/14/24 00:20 Gram Stain - Final Leg - Left Wound Culture - Final Methicillin resist S. aureus Assessment and Plan Plan: Bilateral lower extremity cellulitis with open wounds, with drainage, failed outpatient therapy with oral antibiotics Underlying history of hypertension Underlying history of hyperlipidemia Underlying history of coronary artery disease with history of angioplasty and stent placement Underlying history of chronic kidney disease stage III Underlying history of chronic persistent atrial fibrillation maintained on Eliquis Underlying history of gastroesophageal reflux disease Underlying history of dementia At this time patient was seen and examined Home medications reviewed and reordered Blood cultures and wound cultures obtained Patient was started on IV vancomycin in the emergency room will continue at this time Infectious disease and wound care consultation requested For DVT prophylaxis patient is on Eliquis Will follow closely
--- NOTE | 2024-10-17 15:51 | P.PN ---
Subjective Progress Note Date: 10/17/24 Principal diagnosis: Reason for follow-up is left lower extremity and left gluteal abscess MRSA Patient is a 79-year-old male with past medical history significant for hypertension hyperlipidemia coronary artery disease [place] seizure disorder presenting to the hospital from the local residential concerning for multiple abscesses of the left lower extremity as well as to the left gluteal cleft in this patient status post I&D by surgery on 10/14/2024. On today's evaluation that is 10/17/2024, Patient is afebrile this morning patient denies having any chest pain shortness of breath or cough, the patient is currently on room air, patient denies any abdominal pain no diarrhea no nausea no vomiting and denies pain to the left lower extremity wound area. Patient did have a creatinine 1.31 culture have been finalized with MRSA Enterococcus faecalis Objective - Vital Signs Vital signs: Vital Signs Temp 97.7 F 10/17/24 07:33 Pulse 102 H 10/17/24 07:33 Resp 18 10/17/24 07:33 BP 112/74 10/17/24 07:33 Pulse Ox 97 10/17/24 07:33 FiO2 Intake & Output 10/16/24 10/17/24 10/17/24 18:59 06:59 18:59 Intake Total 500 Balance 500 Intake: Oral 500 Other: Voiding Method Urinal Toilet Toilet Diaper Urinal Diaper Incontinent Diaper Incontinent Incontinent # Voids 1 - Exam GENERAL DESCRIPTION: An elderly male up in the room in no distress RESPIRATORY SYSTEM: Unlabored breathing , decreased breath sounds at bases HEART: S1 S2 regular rate and rhythm , ABDOMEN: Soft , no tenderness EXTREMITIES: Left lower extremity wounds are currently dressed left gluteal cleft did have a small area of swelling and induration and drainage - Labs CBC & Chem 7: 10/16/24 11:11 10/17/24 04:31 Labs: Abnormal Lab Results - Last 24 Hours (Table) 10/17/24 Range/Units 04:31 Creatinine 1.31 H (0.66-1.25) mg/dL Microbiology - Last 24 Hours (Table) 10/14/24 00:16 Blood Culture - Preliminary Blood 10/14/24 12:42 Blood Culture - Preliminary Blood 10/14/24 15:28 Gram Stain - Preliminary Thigh - Left Tissue Culture - Preliminary Methicillin resist S. aureus Coagulase Negative Staph Enterococcus faecalis 10/14/24 00:20 Anaerobic Culture - Preliminary Leg - Left 10/14/24 00:20 Gram Stain - Final Leg - Left Wound Culture - Final Methicillin resist S. aureus Assessment and Plan (1) Cellulitis and abscess of left lower extremity Current Visit: Yes Status: Acute Code(s): L03.116 - CELLULITIS OF LEFT LOWER LIMB; L02.416 - CUTANEOUS ABSCESS OF LEFT LOWER LIMB SNOMED Code(s): 599934057 (2) Abscess, gluteal, left Current Visit: Yes Status: Acute Code(s): L02.31 - CUTANEOUS ABSCESS OF BUTTOCK SNOMED Code(s): 53777752 (3) MRSA (methicillin resistant staph aureus) culture positive Current Visit: Yes Status: Acute Code(s): Z22.322 - CARRIER OR SUSPECTED CARRIER OF METHICILLIN RESIS STAPH SNOMED Code(s): 116192398 Plan: 1patient presented to hospital with multiple abscess to the left lower extremity specially of the thigh and left lower leg area did have evidence of induration and some fluctuation concerning for cellulitis sepsis likely related to gram-positive skin pari especially MRSA. 2patient is status post surgical evaluation and drainage of the abscess culture currently growing MRSA Enterococcus faecalis 3patient will continue with vancomycin pharmacy to dose, await sensitivities of Enterococcus faecalis as plan will be for oral doxycycline plus Augmentin if Enterococcus is sensitive to penicillin for 2 weeks on discharge Dictation was produced using [employer] dictation software. please excuse any grammatical, word or spelling errors. Time with Patient: Less than 30 ([place])
[2024-10-17] MEDS: VANCOMYCIN TROUGH DUE 1 EACH MISC MISCELLANE ONE (19:29)
[2024-10-18 08:55] LABS: Basophils # (A) 0.04 X 10*3/uL (0.00-0.10); Basophils % (A) 0.5 %; Eosinophils # (A) 0.25 X 10*3/uL (0.04-0.35); Eosinophils % (A) 3.4 %; HCT 40.6 % (39.6-50.0); HGB 12.8 g/dL (13.0-17.0); Lymphocytes # (A) 1.91 X 10*3/uL (0.90-5.00); Lymphocytes % (A) 25.8 %; MCHC 31.5 g/dL (32.0-37.0); MCV 95.1 FL (80.0-97.0); Mean Platelet Volume 10.4 FL (9.5-12.2); Monocytes # (A) 1.08 X 10*3/uL (0.20-1.00); Monocytes % (A) 14.6 %; NRBC Per 100 WBC 0 X 10*3/uL (0.00-0.01); Neutrophils # (A) 4.08 X 10*3/uL (1.80-7.70); Neutrophils % (A) 55.2 %; Platelet Count 185 X 10*3/uL (140-440); RBC 4.27 X 10*6/uL (4.40-5.60); RDW 14.6 % (11.5-14.5)
[2024-10-18 09:24] LABS: ALT 24 U/L (10-49); AST 24 U/L (14-35); Albumin 3.2 g/dL (3.8-4.9); Albumin/Globulin Ratio 1.33 Ratio (1.60-3.17); Alkaline Phosphatase 104 U/L (41-126); BUN/Creat Ratio 15.92 Ratio (12.00-20.00); Blood Urea Nitrogen 20.7 mg/dL (9.0-27.0); Calcium 8.4 mg/dL (8.7-10.3); Carbon Dioxide 19.8 mmol/L (21.6-31.8); Chloride 109 mmol/L (96-109); Globulin 2.4 g/dL (1.6-3.3); Glucose 102 mg/dL (70-110); Sodium 141 mmol/L (135-145); Total Bilirubin 0.3 mg/dL (0.3-1.2); Total Protein 5.6 g/dL (6.2-8.2)
--- NOTE | 2024-10-18 12:27 | P.PN ---
Subjective Progress Note Date: 10/18/24 Rubin Lambert, is a 79-year-old male who presented to [facility] emergency room with a chief complaint of multiple wounds on the lower extremities and the sacral area, with pain and drainage, failed outpatient therapy with oral antibiotics. He was evaluated in the emergency room vital examination on presentation revealed a temperature of 97.8 pulse 75 respiration 16 blood pressure 123/81 pulse ox 97% on room air Laboratory data revealed a white blood count of 8.4 hemoglobin 13.4 platelet count 218 BUN 23 creatinine 1.58 Patient was admitted to medical floor for further evaluation and treatment Past medical history is significant for coronary artery disease, with history of angioplasty and stent placement, history of hypertension, history of hyperlipidemia, history of persistent atrial fibrillation maintained on Eliquis, and history of severe dementia On review of systems patient is alert confused in no apparent distress, he is complaining of pain at the site of his open wounds, otherwise he denies any complaints, there is no fever or chills no headache or dizziness no chest pain no shortness of breath no cough no nausea or vomiting no abdominal pain no diarrhea no urinary symptoms On 10/15/2024 patient is alert and oriented x 3. Patient underwent debridement with Dr. Mora. Patient remains on IV vancomycin. Infectious disease and vascular surgery following. Current vital signs temp 98.4, heart rate 78, respiratory rate 17, blood pressure 114/73 with a pulse ox of 96% on room air On 10/16/2024 patient was seen and examined on the medical floor, he is more somnolent today, he denies any complaints, vital exam reveals a temperature of 98.2 pulse 83 respiration 16 blood pressure 122/56 pulse ox 98% on room air, white blood count 5.3 hemoglobin 12.8 platelet count 181 BUN 25 creatinine 1.53, patient is maintained on IV vancomycin infectious disease are following, for DVT prophylaxis patient is maintained on Eliquis. Continue current medications will follow in a.m. on 10/17/2024 patient is alert and oriented 3. Patient currently sitting up in chair eating breakfast.creatinine 1.31. Current vital signs temp 97.7, heart rate 102, respiratory rate 18, blood pressure 112/74 with pulse ox of 97% on room air. Patient denies chest pain or shortness breath. Patient denies nausea vomiting or diarrhea. Patient denies any urinary burning or frequency\ on 10/18/2024 she was alert and oriented 3. discussed case with infectious disease awaiting final sensitivity to determine which antibiotic patient can eat discharged on patient remains on IV vancomycin and hopefully patient will be able to be discharged on by mouth medications of Dr. Oconnor but need finalization of cultures. At this time patient denies chest pain or shortness breath. Patient denies nausea vomiting or diarrhea. Patient denies any urinary burning or frequency. Objective - Vital Signs Vital signs: Vital Signs Temp 97.4 F L 10/18/24 07:21 Pulse 93 10/18/24 07:21 Resp 18 10/18/24 07:21 BP 146/92 10/18/24 07:21 Pulse Ox 97 10/18/24 07:21 FiO2 Intake & Output 10/17/24 10/18/24 10/18/24 18:59 06:59 18:59 Intake Total 900 1025 Balance 900 1025 Intake: Intake, IV Titration 900 1025 Amount Sodium Chloride 0.9% 1, 900 525 000 ml @ 75 mls/hr IV . [id number] [facility] Rx#:[id number] Vancomycin 1,750 mg In 500 Sodium Chloride 0.9% 500 ml 500 ml @ 167 mls/hr IVPB Q24HR@2000 [facility] Rx#: [id number] Other: Voiding Method Toilet Toilet Toilet Diaper Diaper Diaper Incontinent Incontinent Incontinent # Voids 2 6 1 # Bowel Movements 1 - Exam In general patient is alert and oriented x 3 in no distress HEENT head normocephalic and atraumatic Neck is supple no JVD no goiter no lymphadenopathy no carotid bruit Chest examination is clear to auscultation no crackles no wheezing Cardiac exam reveals regular heart sounds S1 and S2 no gallops no murmurs Abdomen is soft nontender no organomegaly with normal bowel sounds Extremity exam reveals no edema no cyanosis or clubbing, patient has multiple open wounds on the lower extremities, the largest are on the anterior aspect of the left thigh, posterior aspect of the left calf, and in the sacral area. Neurological examination reveals no gross focal deficits - Labs CBC & Chem 7: 10/18/24 05:07 10/18/24 05:07 Labs: Abnormal Lab Results - Last 24 Hours (Table) 10/18/24 10/18/24 Range/Units 05:07 05:07 RBC 4.27 L (4.40-5.60) X 10*6/uL Hgb 12.8 L (13.0-17.0) g/dL MCHC 31.5 L (32.0-37.0) g/dL RDW 14.6 H (11.5-14.5) % Monocytes # 1.08 H (0.20-1.00) X 10*3/uL Carbon Dioxide 19.8 L (21.6-31.8) mmol/L Anion Gap 12.20 H (4.00-12.00) mmol/L Est GFR (CKD-EPI) 56 L (>=60) Calcium 8.4 L (8.7-10.3) mg/dL Total Protein 5.6 L (6.2-8.2) g/dL Albumin 3.2 L (3.8-4.9) g/dL Albumin/Globulin Ratio 1.33 L (1.60-3.17) Ratio Microbiology - Last 24 Hours (Table) 10/14/24 12:42 Blood Culture - Preliminary Blood 10/14/24 00:16 Blood Culture - Preliminary Blood Assessment and Plan Plan: Bilateral lower extremity cellulitis with open wounds, with drainage, failed outpatient therapy with oral antibiotics Underlying history of hypertension Underlying history of hyperlipidemia Underlying history of coronary artery disease with history of angioplasty and stent placement Underlying history of chronic kidney disease stage III Underlying history of chronic persistent atrial fibrillation maintained on Eliquis Underlying history of gastroesophageal reflux disease Underlying history of dementia At this time patient was seen and examined Home medications reviewed and reordered Blood cultures and wound cultures obtained Patient was started on IV vancomycin in the emergency room will continue at this time Infectious disease and wound care consultation requested For DVT prophylaxis patient is on Eliquis Will follow closely
--- NOTE | 2024-10-19 07:53 | P.PN ---
Subjective Progress Note Date: 10/18/24 Principal diagnosis: Reason for follow-up is left lower extremity and left gluteal abscess MRSA Patient is a 79-year-old male with past medical history significant for hypertension hyperlipidemia coronary artery disease NE seizure disorder presenting to the hospital from the local half-way concerning for multiple abscesses of the left lower extremity as well as to the left gluteal cleft in this patient status post I&D by surgery on 10/14/2024. On today's evaluation that is 10/18/2024,the patient denies any fever or any chills, patient is breathing comfortably on room air, the patient denies chest pain shortness of breath and no significant cough, patient denies abdominal pain, no nausea vomiting or diarrhea. Patient denies pain to the left lower extremity and wants to go back. Patient white count 7.40, creatinine 1.3 sensitivity on Enterococcus still pending Objective - Vital Signs Vital signs: Vital Signs Temp 97.4 F L 10/18/24 07:21 Pulse 93 10/18/24 07:21 Resp 18 10/18/24 07:21 BP 146/92 10/18/24 07:21 Pulse Ox 97 10/18/24 07:21 FiO2 Intake & Output 10/17/24 10/18/24 10/18/24 18:59 06:59 18:59 Intake Total 900 1025 Balance 900 1025 Intake: Intake, IV Titration 900 1025 Amount Sodium Chloride 0.9% 1, 900 525 000 ml @ 75 mls/hr IV . [id number] [facility] Rx#:[id number] Vancomycin 1,750 mg In 500 Sodium Chloride 0.9% 500 ml 500 ml @ 167 mls/hr IVPB Q24HR@2000 [facility] Rx#: [id number] Other: Voiding Method Toilet Toilet Toilet Diaper Diaper Diaper Incontinent Incontinent Incontinent # Voids 2 6 1 # Bowel Movements 1 - Exam GENERAL DESCRIPTION: An elderly male up in the room in no distress RESPIRATORY SYSTEM: Unlabored breathing , decreased breath sounds at bases HEART: S1 S2 regular rate and rhythm , ABDOMEN: Soft , no tenderness EXTREMITIES: Left lower extremity wounds are currently dressed left gluteal cleft did have a small area of swelling and induration and drainage - Labs CBC & Chem 7: 10/18/24 05:07 10/18/24 05:07 Labs: Abnormal Lab Results - Last 24 Hours (Table) 10/18/24 10/18/24 Range/Units 05:07 05:07 RBC 4.27 L (4.40-5.60) X 10*6/uL Hgb 12.8 L (13.0-17.0) g/dL MCHC 31.5 L (32.0-37.0) g/dL RDW 14.6 H (11.5-14.5) % Monocytes # 1.08 H (0.20-1.00) X 10*3/uL Carbon Dioxide 19.8 L (21.6-31.8) mmol/L Anion Gap 12.20 H (4.00-12.00) mmol/L Est GFR (CKD-EPI) 56 L (>=60) Calcium 8.4 L (8.7-10.3) mg/dL Total Protein 5.6 L (6.2-8.2) g/dL Albumin 3.2 L (3.8-4.9) g/dL Albumin/Globulin Ratio 1.33 L (1.60-3.17) Ratio Microbiology - Last 24 Hours (Table) 10/14/24 12:42 Blood Culture - Preliminary Blood 10/14/24 00:16 Blood Culture - Preliminary Blood Assessment and Plan (1) Cellulitis and abscess of left lower extremity Current Visit: Yes Status: Acute Code(s): L03.116 - CELLULITIS OF LEFT LOWER LIMB; L02.416 - CUTANEOUS ABSCESS OF LEFT LOWER LIMB SNOMED Code(s): 002372421 (2) Abscess, gluteal, left Current Visit: Yes Status: Acute Code(s): L02.31 - CUTANEOUS ABSCESS OF BUTTOCK SNOMED Code(s): 05920439 (3) MRSA (methicillin resistant staph aureus) culture positive Current Visit: Yes Status: Acute Code(s): Z22.322 - CARRIER OR SUSPECTED CARRIER OF METHICILLIN RESIS STAPH SNOMED Code(s): 231686603 Plan: 1patient presented to hospital with multiple abscess to the left lower extremity specially of the thigh and left lower leg area did have evidence of induration and some fluctuation concerning for cellulitis sepsis likely related to gram-positive skin pari especially MRSA. 2patient is status post surgical evaluation and drainage of the abscess culture currently growing MRSA Enterococcus faecalis 3patient will continue with vancomycin pharmacy to dose, await sensitivities of Enterococcus faecalis to determine his discharge antibiotics discussed with the RN ACUTE for admitting team if Enterococcus is penicillin sensitive will be planning for Augmentin and doxycycline on discharge x 2 weeks Dictation was produced using [employer] dictation software. please excuse any grammatical, word or spelling errors.
--- NOTE | 2024-10-19 11:29 | CDI ---
Documentation Clarification Form Date: 10/19/2024 11:04:46 AM From: Marcella Hooker RN, CCDS Phone: [phone] Admit Date: 10/16/2024 09:22:00 AM Patient Name: Rubin Lambert Visit Number: [id number] Discharge Date: ATTENTION: The Clinical Documentation Specialists (CDI) and [facility] Coding Staff appreciate your assistance in clarifying documentation. Please respond to the clarification below the line at the bottom and electronically sign. The CDI & [facility] Coding staff will review the response and follow-up if needed. Please note: Queries are made part of the Legal Health Record. If you have any questions, please contact the author of this message via ITS. Doctor: Autumn Lloyd Sepsis is documented 10/14, ID consult, which may lack sufficient clinical evidence/support in the medical record. Additional clarification is requested. History/Risk Factors: 79 year old male presents [facility] for multiple wounds on the lower extremities and the sacral area with pain and drainage. Failed outpatient therapy with oral antibiotics. Medical History: CAD, GERD, HLD, HTN and Closed head injury. ED Note, 10/14. Clinical Indicators: VSS: 10/13 B/P 123/81; HR 75; Temp 97.8F Oral; RR 16; SpO2 97% ra Labs: 10/14 Wbc 8.4; Neutrophils 5.4 Culture Gram Stain Left leg 10/16 Final: MRSA Culture Gram Stain Left thigh 10/18 Final MRSA, Staphylococcus epidermidis Enterococcus faecalis ID Consult 10/14: patient presented to hospital with multiple abscess to the left lower extremity specially of the thigh and left lower leg area did have evidence of induration and some fluctuation concerning for cellulitis sepsis likely related to gram-positive skin pari especially MRSA. Treatment: Debridement of wounds, 10/14 Vancomycin IVPB x 1; 10/14 10/16 Vancomycin IVPB Q24H; 10/16 Vancomycin IVPB Q24H After work up and study, please clarify which diagnosis is most appropriate? [ xxx] Sepsis ruled out [ ] Sepsis treated prophylactically [ ] Sepsis is a valid diagnosis as evidence by the following: (Please add rationale): [ ] Other, please specify [ ] Unable to determine (Template Last Reviewed: November 2023) SHINE
--- NOTE | 2024-10-19 11:52 | CDI ---
Documentation Clarification Form Date: 10/19/2024 11:31:46 AM From: Marcella Hooker RN CCDS Phone: [phone] Admit Date: 10/16/2024 09:22:00 AM Patient Name: Rubin Lambert Visit Number: [id number] Discharge Date: ATTENTION: The Clinical Documentation Specialists (CDI) and [facility] Coding Staff appreciate your assistance in clarifying documentation. Please respond to the clarification below the line at the bottom and electronically sign. The CDI & [facility] Coding staff will review the response and follow-up if needed. Please note: Queries are made part of the Legal Health Record. If you have any questions, please contact the author of this message via ITS. Doctor: Jovi Mora A Sacral wound is documented in the procedure note 10/14 and A coccyx ulcer is documented in the ED note 10/14. Additional clarification regarding the stage and location of the pressure ulcer is requested. History/Risk Factors: 79 year old male presents [facility] the [facility] for multiple wounds on the lower extremities and the sacral area with pain and drainage. Failed outpatient therapy with oral antibiotics. Medical History: CAD, GERD, HLD, HTN and Closed head injury. ED Note, 10/14. Clinical Indicators: Location: sacral wound Wound description: x x 2 cm with discoloration of the skin Treatment: debridement 10/14 down to subcutaneous tissue., off load every two hours, Vancomycin ivpb Please clarify the stage and location of pressure ulcer , if known: [ ] Stage 3 Sacral pressure ulcer [ ] Fill in stage ___ Sacral pressure ulcer [ ] Stage 3 Coccyx pressure ulcer [ ] Fill in stage ___ Coccyx pressure ulcer [ ] Other condition, please specify [ ] Unable to determine Clinical Definitions: Stage 1 Pressure Ulcer: intact skin, non-blanching redness of local area Stage 2 Pressure Ulcer: Partial thickness, loss of dermis, pink wound bed Stage 3 Pressure Ulcer: Full thickness tissue loss Stage 4 Pressure Ulcer: Full thickness tissue loss with exposed bone, tendon, or muscle. Unstageable pressure ulcer: Full thickness tissue loss in which the base of the ulcer is covered by slough (yellow, suarez, ortiz, green or brown) and/or eschar (suarez, brown or black) in the wound bed. (Template Last Revised: December 2020) MTDD
[2024-10-19 13:31] VITALS: BP 95/54; PULSE 80; RESP 17; TEMP 97.6
--- NOTE | 2024-10-19 13:39 | P.DS ---
Providers Date of admission: 10/16/24 09:22 Expected date of discharge: 10/19/24 Attending physician: Autumn Lloyd Consults: 10/14/24 11:53 Consult Physician Routine Consulting Provider: Millicent Irwin Consult Reason/Comments: cellulitis Do you want consulting provider notified?: Yes 10/14/24 14:11 Consult Physician Routine Consulting Provider: Jovi Mora Consult Reason/Comments: left thigh and leg abscess, debridemnt and deep cultures Do you want consulting provider notified?: Yes Primary care physician: Autumn Lloyd [facility] Course: Discharge Diagnosis Bilateral lower extremity cellulitis with open wounds, with drainage, failed outpatient therapy with oral antibiotics Underlying history of hypertension Underlying history of hyperlipidemia Underlying history of coronary artery disease with history of angioplasty and stent placement Underlying history of chronic kidney disease stage III Underlying history of chronic persistent atrial fibrillation maintained on Eliquis Underlying history of gastroesophageal reflux disease Underlying history of dementia Hospital Course Rubin Lambert, is a 79-year-old male who presented to [facility] emergency room with a chief complaint of multiple wounds on the lower extremities and the sacral area, with pain and drainage, failed outpatient therapy with oral antibiotics. He was evaluated in the emergency room vital examination on presentation revealed a temperature of 97.8 pulse 75 respiration 16 blood pressure 123/81 pulse ox 97% on room air Laboratory data revealed a white blood count of 8.4 hemoglobin 13.4 platelet count 218 BUN 23 creatinine 1.58 Patient was admitted to medical floor for further evaluation and treatment Past medical history is significant for coronary artery disease, with history of angioplasty and stent placement, history of hypertension, history of hyperlipidemia, history of persistent atrial fibrillation maintained on Eliquis, and history of severe dementia On review of systems patient is alert confused in no apparent distress, he is complaining of pain at the site of his open wounds, otherwise he denies any complaints, there is no fever or chills no headache or dizziness no chest pain no shortness of breath no cough no nausea or vomiting no abdominal pain no diarrhea no urinary symptoms On 10/15/2024 patient is alert and oriented x 3. Patient underwent debridement with Dr. Mora. Patient remains on IV vancomycin. Infectious disease and vascular surgery following. Current vital signs temp 98.4, heart rate 78, respiratory rate 17, blood pressure 114/73 with a pulse ox of 96% on room air On 10/16/2024 patient was seen and examined on the medical floor, he is more somnolent today, he denies any complaints, vital exam reveals a temperature of 98.2 pulse 83 respiration 16 blood pressure 122/56 pulse ox 98% on room air, white blood count 5.3 hemoglobin 12.8 platelet count 181 BUN 25 creatinine 1.53, patient is maintained on IV vancomycin infectious disease are following, for DVT prophylaxis patient is maintained on Eliquis. Continue current medications will follow in a.m. on 10/17/2024 patient is alert and oriented 3. Patient currently sitting up in chair eating breakfast.creatinine 1.31. Current vital signs temp 97.7, heart rate 102, respiratory rate 18, blood pressure 112/74 with pulse ox of 97% on room air. Patient denies chest pain or shortness breath. Patient denies nausea vomiting or diarrhea. Patient denies any urinary burning or frequency\ on 10/18/2024 she was alert and oriented 3. discussed case with infectious disease awaiting final sensitivity to determine which antibiotic patient can eat discharged on patient remains on IV vancomycin and hopefully patient will be able to be discharged on by mouth medications of Dr. Oconnor but need finalization of cultures. At this time patient denies chest pain or shortness breath. Patient denies nausea vomiting or diarrhea. Patient denies any urinary burning or frequency. on 10/19/2024 patient is alert and oriented 3. Discussed case with infectious disease patient may be discharged home on Augmentin and doxycycline for 10 days patient to follow-up with PCP consulting providers for further management. Patient denies chest pain or shortness of breath. Patient denies nausea vomiting or diarrhea. Patient denies any urinary burning or frequency Patient Condition at Discharge: Stable Plan - Discharge Summary Discharge Rx Participant: Yes New Discharge Prescriptions: New Doxycycline [Vibramycin] 100 mg PO BID 10 Days #20 capsule Amoxic-Pot Clav 875-125Mg [Augmentin 875-125] 1 tab PO Q12HR 10 Days #20 tab Continue ALPRAZolam [Xanax] 0.5 mg PO BID PRN PRN Reason: Anxiety Isosorbide Mononitrate ER [Imdur] 30 mg PO DAILY@0800 Divalproex [Depakote] 500 mg PO HS@1999 PARoxetine HCL 40 mg PO BID@0800,1999 Omeprazole 20 mg PO DAILY@0800 Hydrocortisone Cream [Hydrocortisone 1% Cream] 1 applic TOPICAL QID PRN PRN Reason: irritation Metoprolol Tartrate [Lopressor] 25 mg PO BID@0800,1700 Atorvastatin [Lipitor] 80 mg PO HS@1999 Acetaminophen Tab [Tylenol] 1,000 mg PO Q6H PRN PRN Reason: Fever And/ Or Pain Bismuth Subsalicylate [Pepto-Bismol] 524 mg PO QID PRN PRN Reason: Gi Upset Chlorhexidine Gluconate [Hibiclens] 1 applic TOPICAL TID PRN PRN Reason: cleanse guaiFENesin SYRUP 100MG/5ML [Robitussin] 200 mg PO Q6H PRN PRN Reason: Cough Loperamide [Imodium] 2 - 4 mg PO QID PRN PRN Reason: Diarrhea Magnesium Hydroxide [Milk of Magnesia] 2,400 mg PO ONCE PRN PRN Reason: Constipation Nystatin [Nystop] 1 applic TOPICAL BID Artificial Tears-Hypromellose [Artificial Tear Drops] 1 drop BOTH EYES QID PRN PRN Reason: Dry Eye(S) Nitroglycerin Sl Tabs [Nitrostat] 0.4 mg SUBLINGUAL Q5M PRN 30 Days #25 tab PRN Reason: Chest Pain Aspirin 81 mg PO DAILY@0800 Apixaban [Eliquis] 2.5 mg PO BID@08,1999 Muscle Rub(Unknown) 1 applic TOPICAL TID PRN PRN Reason: Pain Calcium Carbonate [Tums] 1,000 mg PO TID PRN PRN Reason: Indigestion Menthol-Zinc Oxide Oint [Calmoseptine Ointment] 1 applic TOPICAL BID PRN PRN Reason: buttocks Iazyydhj-Dkkjyonxgf-Zqip Oint [Triple Antibiotic Ointment] 1 applic TOPICAL DAILY PRN PRN Reason: cuts/abrasions Pseudoephedrine HCl [Sudogest] 60 mg PO Q6HR PRN PRN Reason: Congestion Triamcinolone 0.5% Cream [Kenalog 0.5% Cream] 1 applic TOPICAL BID PRN PRN Reason: Rash Discontinued Sulfamethox-Tmp 800-160Mg [Bactrim DS 800-160 mg] 1 tab PO BID@799,1999 Discharge Medication List ALPRAZolam [Xanax] 0.5 mg PO BID PRN 06/02/18 [History] Divalproex [Depakote] 500 mg PO HS@199906/02/18 [History] Isosorbide Mononitrate ER [Imdur] 30 mg PO DAILY@0800 06/02/18 [History] PARoxetine HCL 40 mg PO BID@0800,199906/02/18 [History] Omeprazole 20 mg PO DAILY@0800 11/16/22 [History] Artificial Tears-Hypromellose [Artificial Tear Drops] 1 drop BOTH EYES QID PRN 08/31/24 [History] Hydrocortisone Cream [Hydrocortisone 1% Cream] 1 applic TOPICAL QID PRN 08/31/24 [History] Metoprolol Tartrate [Lopressor] 25 mg PO BID@0800,1700 08/31/24 [History] Nitroglycerin Sl Tabs [Nitrostat] 0.4 mg SUBLINGUAL Q5M PRN 30 Days #25 tab 08/31/24 [Rx] Acetaminophen Tab [Tylenol] 1,000 mg PO Q6H PRN 10/14/24 [History] Apixaban [Eliquis] 2.5 mg PO BID@0800,199910/14/24 [History] Aspirin 81 mg PO DAILY@0800 10/14/24 [History] Atorvastatin [Lipitor] 80 mg PO HS@199910/14/24 [History] Bismuth Subsalicylate [Pepto-Bismol] 524 mg PO QID PRN 10/14/24 [History] Calcium Carbonate [Tums] 1,000 mg PO TID PRN 10/14/24 [History] Chlorhexidine Gluconate [Hibiclens] 1 applic TOPICAL TID PRN 10/14/24 [History] Loperamide [Imodium] 2 - 4 mg PO QID PRN 10/14/24 [History] Magnesium Hydroxide [Milk of Magnesia] 2,400 mg PO ONCE PRN 10/14/24 [History] Menthol-Zinc Oxide Oint [Calmoseptine Ointment] 1 applic TOPICAL BID PRN 10/14/24 [History] Muscle Rub(Unknown) 1 applic TOPICAL TID PRN 10/14/24 [History] Exshsqxe-Mmgvgefjyz-Pdvn Oint [Triple Antibiotic Ointment] 1 applic TOPICAL DAILY PRN 10/14/24 [History] Nystatin [Nystop] 1 applic TOPICAL BID 10/14/24 [History] Pseudoephedrine HCl [Sudogest] 60 mg PO Q6HR PRN 10/14/24 [History] Triamcinolone 0.5% Cream [Kenalog 0.5% Cream] 1 applic TOPICAL BID PRN 10/14/24 [History] guaiFENesin SYRUP 100MG/5ML [Robitussin] 200 mg PO Q6H PRN 10/14/24 [History] Amoxic-Pot Clav 875-125Mg [Augmentin 875-125] 1 tab PO Q12HR 10 Days #20 tab 10/19/24 [Rx] Doxycycline [Vibramycin] 100 mg PO BID 10 Days #20 capsule 10/19/24 [Rx] Follow up Appointment(s)/Referral(s): Autumn Lloyd MD [Primary Care Provider] - 1-2 days Millicent Irwin MD [STAFF PHYSICIAN] - 1 Week Patient Instructions/Handouts: MRSA (Methicillin-Resistant Staphylococcus Aureus) (DC), Cellulitis (GEN) Discharge Disposition: HOME SELF-CARE
--- NOTE | 2024-10-19 13:46 | CDI ---
Documentation Clarification Form Date: 10/19/2024 10:42:56 AM From: Marcella Hooker Phone: [phone] Admit Date: 10/16/2024 09:22:00 AM Patient Name: Rubin Lambert Visit Number: [id number] Discharge Date: ATTENTION: The Clinical Documentation Specialists (CDI) and [facility] Coding Staff appreciate your assistance in clarifying documentation. Please respond to the clarification below the line at the bottom and electronically sign. The CDI & [facility] Coding staff will review the response and follow-up if needed. Please note: Queries are made part of the Legal Health Record. If you have any questions, please contact the author of this message via ITS. Doctor/Provider: Jovi Briseno Left thigh debridement is documented on 10/14. Unfortunately, some required elements have not been documented. Additional clarification regarding the procedure is requested. History/Risk Factors: 79 year old male presents [facility] the ED [facility] for multiple wounds on the lower extremities and the sacral area with pain and drainage. Failed outpatient therapy with oral antibiotics. Medical History: CAD, GERD, HLD, HTN and Closed head injury. ED Note, 10/14 Clinical Indicators: 10/14, Debridement: Left thigh wound on the anterior aspect of the left thigh measurement is 2 x 2 cm and using scissors we did selective debridement down to subcu tissue some devitalized tissue was removed. Treatment: Debridement, Tissue sent for culture, 10/14 Vancomycin IVPB x 1; 10/14 10/16 Vancomycin IVPB Q24H; 10/16 Vancomycin IVPB Q24H Please clarify the procedure performed: [ ] Excisional debridement (the removal of necrotic, devitalized tissue or slough by means of cutting away of tissue) Appearance of the wound [ ] Non-excisional debridement (the removal of necrotic, devitalized tissue or slough by means of flushing, brushing, or washing. (Irrigation) Appearance of the wound [ ] Other; please specify Five elements required for accurate and compliant documentation of a debridement: -Technique used (e.g., excisional, excised, cutting, brushing, jet lavage etc.) -Instrument(s) used (e.g., scalpel, curette, etc.) -Nature of the tissue removed (e.g., necrotic, devitalized tissues, non-viable tissue, etc.) -Appearance and size of the wound (e.g., down to fresh bleeding tissue, 7cm x 10cm, etc.) -Depth of the debridement* (e.g., skin, subcutaneous tissue, fascia, muscle, bone, etc.) (Template Last Revised: July 2024) MTDD
--- NOTE | 2024-10-19 13:54 | CDI ---
Documentation Clarification Form Date: 10/19/2024 01:46:31 PM From: Marcella Hooker Phone: [phone] Admit Date: 10/16/2024 09:22:00 AM Patient Name: Rubin Lambert Visit Number: [id number] Discharge Date: ATTENTION: The Clinical Documentation Specialists (CDI) and [facility] Coding Staff appreciate your assistance in clarifying documentation. Please respond to the clarification below the line at the bottom and electronically sign. The CDI & [facility] Coding staff will review the response and follow-up if needed. Please note: Queries are made part of the Legal Health Record. If you have any questions, please contact the author of this message via ITS. Doctor/Provider: Jovi Mora A Left lower extremity debridement on 10/14. Unfortunately, some required elements have not been documented. Additional clarification regarding the procedure is requested. History/Risk Factors: 79 year old male presents [facility] the ED [facility] for multiple wounds on the lower extremities and the sacral area with pain and drainage. Failed outpatient therapy with oral antibiotics. Medical History: CAD, GERD, HLD, HTN and Closed head injury. ED Note, 10/14 Clinical Indicators: 10/14, Debridement: left lower extremity 1 x 1 cm Treatment: Debridement, Tissue sent for culture, 10/14 Vancomycin IVPB x 1; 10/14 10/16 Vancomycin IVPB Q24H; 10/16 Vancomycin IVPB Q24H Please clarify the procedure performed: [ ] Excisional debridement (the removal of necrotic, devitalized tissue or slough by means of cutting away of tissue) Instrument: Nature of the tissue removed Appearance of the wound Depth of debridement [ ] Non-excisional debridement (the removal of necrotic, devitalized tissue or slough by means of flushing, brushing, or washing. (Irrigation) Instrument: Nature of the tissue removed Appearance of the wound Depth of debridement [ ] Other; please specify Five elements required for accurate and compliant documentation of a debridement: -Technique used (e.g., excisional, excised, cutting, brushing, jet lavage etc.) -Instrument(s) used (e.g., scalpel, curette, etc.) -Nature of the tissue removed (e.g., necrotic, devitalized tissues, non-viable tissue, etc.) -Appearance and size of the wound (e.g., down to fresh bleeding tissue, 7cm x 10cm, etc.) -Depth of the debridement* (e.g., skin, subcutaneous tissue, fascia, muscle, bone, etc.) (Template Last Revised: July 2024) MTDD
--- NOTE | 2024-10-19 13:55 | P.PN ---
Subjective Progress Note Date: 10/19/24 Principal diagnosis: Reason for follow-up is left lower extremity and left gluteal abscess MRSA Patient is a 79-year-old male with past medical history significant for hypertension hyperlipidemia coronary artery disease [place] seizure disorder presenting to the hospital from the local senior care concerning for multiple abscesses of the left lower extremity as well as to the left gluteal cleft in this patient status post I&D by surgery on 10/14/2024. On today's evaluation that is 10/19/2024,the patient remains to be afebrile, patient is on room air not requiring supplemental oxygen patient is currently sleepy did not answer any question no vomiting diarrhea any changes reported by the nursing staff. No new lab has been obtained today culture has been finalized with MRSA staph epi and Objective - Vital Signs Vital signs: Vital Signs Temp 97.4 F L 10/19/24 08:27 Pulse 87 10/19/24 08:27 Resp 18 10/19/24 08:27 BP 130/86 10/19/24 08:27 Pulse Ox 98 10/19/24 08:27 FiO2 Intake & Output 10/18/24 10/19/24 10/19/24 18:59 06:59 18:59 Intake Total 1316 1100 Balance 1316 1100 Intake: Intake, IV Titration 1100 Amount Sodium Chloride 0.9% 1, 600 000 ml @ 75 mls/hr IV . [id number] [facility] Rx#:[id number] Vancomycin 1,750 mg In 500 Sodium Chloride 0.9% 500 ml 500 ml @ 167 mls/hr IVPB Q24HR@2000 [facility] Rx#: [id number] Oral 1316 Other: Voiding Method Toilet Toilet Diaper Diaper Incontinent Incontinent # Voids 5 5 - Exam GENERAL DESCRIPTION: An elderly male up in the room in no distress RESPIRATORY SYSTEM: Unlabored breathing , decreased breath sounds at bases HEART: S1 S2 regular rate and rhythm , ABDOMEN: Soft , no tenderness EXTREMITIES: Left lower extremity wounds are currently dressed left gluteal cleft did have a small area of swelling and induration and drainage - Labs CBC & Chem 7: 10/18/24 05:07 10/18/24 05:07 Labs: Microbiology - Last 24 Hours (Table) 10/14/24 15:28 Gram Stain - Final Thigh - Left Tissue Culture - Final Methicillin resist S. aureus Staphylococcus epidermidis Enterococcus faecalis 10/14/24 00:20 Anaerobic Culture - Final Leg - Left Assessment and Plan (1) Cellulitis and abscess of left lower extremity Current Visit: Yes Status: Acute Code(s): L03.116 - CELLULITIS OF LEFT LOWER LIMB; L02.416 - CUTANEOUS ABSCESS OF LEFT LOWER LIMB SNOMED Code(s): 079976493 (2) Abscess, gluteal, left Current Visit: Yes Status: Acute Code(s): L02.31 - CUTANEOUS ABSCESS OF BUTTOCK SNOMED Code(s): 71356617 (3) MRSA (methicillin resistant staph aureus) culture positive Current Visit: Yes Status: Acute Code(s): Z22.322 - CARRIER OR SUSPECTED CARRIER OF METHICILLIN RESIS STAPH SNOMED Code(s): 863895737 Plan: 1patient presented to hospital with multiple abscess to the left lower extremi ty specially of the thigh and left lower leg area did have evidence of induration and some fluctuation concerning for cellulitis sepsis likely related to gram-positive skin pari especially MRSA. 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 please excuse any grammatical, word or spelling errors. Time with Patient: Less than 30
--- NOTE | 2024-10-19 14:01 | CDI ---
Documentation Clarification Form Date: 10/19/2024 01:54:55 PM From: Marcella Hooker RN CCDS Phone: [phone] Admit Date: 10/16/2024 09:22:00 AM Patient Name: Rubin Lambert Visit Number: [id number] Discharge Date: ATTENTION: The Clinical Documentation Specialists (CDI) and [facility] Coding Staff appreciate your assistance in clarifying documentation. Please respond to the clarification below the line at the bottom and electronically sign. The CDI & [facility] Coding staff will review the response and follow-up if needed. Please note: Queries are made part of the Legal Health Record. If you have any questions, please contact the author of this message via ITS. Doctor: Jovi Briseno Sacral debridement is documented on 10/14.. Unfortunately, some required elements have not been documented. Additional clarification regarding the procedure is requested. History/Risk Factors: 79 year old male presents [facility] the ED [facility] for multiple wounds on the lower extremities and the sacral area with pain and drainage. Failed outpatient therapy with oral antibiotics. Medical History: CAD, GERD, HLD, HTN and Closed head injury. ED Note, 10/14 Clinical Indicators: 10/14, Debridement: sacral wound was prepped and 1% lidocaine were infiltrated using sharp scissor we did the selective debridement was performed down to subtenons tissue no active bleeding was noted we placed extra silver and dressing applied patient tarted the procedure well plan is patient IV antibiotic Treatment: Debridement, Tissue sent for culture, 10/14 Vancomycin IVPB x 1; 10/14 10/16 Vancomycin IVPB Q24H; 10/16 Vancomycin IVPB Q24H, Extra silver and dressing applied Please clarify the procedure performed: [ ] Excisional debridement (the removal of necrotic, devitalized tissue or slough by means of cutting away of tissue) Nature of the tissue removed Appearance of the wound [ ] Non-excisional debridement (the removal of necrotic, devitalized tissue or slough by means of flushing, brushing, or washing. (Irrigation) Nature of the tissue removed Appearance of the wound [ ] Other; please specify Five elements required for accurate and compliant documentation of a debridement: -Technique used (e.g., excisional, excised, cutting, brushing, jet lavage etc.) -Instrument(s) used (e.g., scalpel, curette, etc.) -Nature of the tissue removed (e.g., necrotic, devitalized tissues, non-viable tissue, etc.) -Appearance and size of the wound (e.g., down to fresh bleeding tissue, 7cm x 10cm, etc.) -Depth of the debridement* (e.g., skin, subcutaneous tissue, fascia, muscle, bone, etc.) (Template Last Revised: July 2024) MTDD
--- NOTE | 2024-10-20 14:15 | CDI ---
Documentation Clarification Form Date: 10/19/2024 10:42:00 AM From: Marcella Hooker RN CCDS Phone: [phone] Admit Date: 10/16/2024 09:22:00 AM Patient Name: Rubin Lambert Visit Number: [id number] Discharge Date: 10/19/2024 05:12:00 PM ATTENTION: The Clinical Documentation Specialists (CDI) and [facility] Coding Staff appreciate your assistance in clarifying documentation. Please respond to the clarification below the line at the bottom and electronically sign. The CDI & [facility] Coding staff will review the response and follow-up if needed. Please note: Queries are made part of the Legal Health Record. If you have any questions, please contact the author of this message via ITS. Doctor/Provider: Jovi Mora A Left thigh debridement is documented on 10/14. Unfortunately, some required elements have not been documented. Additional clarification regarding the procedure is requested. History/Risk Factors: 79 year old male presents [facility] the ED from [facility] for multiple wounds on the lower extremities and the sacral area with pain and drainage. Failed outpatient therapy with oral antibiotics. Medical History: CAD, GERD, HLD, HTN and Closed head injury. ED Note, 10/14 Clinical Indicators: Left thigh wound on the anterior aspect of the left thigh measurement is 2 x 2 cm and using scissors we did selective debridement down to subcu tissue some devitalized tissue was removed. Treatment: Debridement, Tissue sent for culture, 10/14 Vancomycin IVPB x 1; 10/14 10/16 Vancomycin IVPB Q24H; 10/16 Vancomycin IVPB Q24H Please clarify the procedure performed: [ ] Excisional debridement (the removal of necrotic, devitalized tissue or slough by means of cutting away of tissue) Appearance of the wound [ ] Non-excisional debridement (the removal of necrotic, devitalized tissue or slough by means of flushing, brushing, or washing. (Irrigation) Appearance of the wound [ ] Other; please specify Five elements required for accurate and compliant documentation of a debridement: -Technique used (e.g., excisional, excised, cutting, brushing, jet lavage etc.) -Instrument(s) used (e.g., scalpel, curette, etc.) -Nature of the tissue removed (e.g., necrotic, devitalized tissues, non-viable tissue, etc.) -Appearance and size of the wound (e.g., down to fresh bleeding tissue, 7cm x 10cm, etc.) -Depth of the debridement* (e.g., skin, subcutaneous tissue, fascia, muscle, bone, etc.) (Template Last Revised: July 2024) MTDD
--- NOTE | 2024-10-20 14:21 | CDI ---
Documentation Clarification Form Date: 10/19/2024 01:46:00 PM From: Marcella Hooker RN CCDS Phone: [phone] Admit Date: 10/16/2024 09:22:00 AM Patient Name: Rubin Lambert Visit Number: [id number] Discharge Date: 10/19/2024 05:12:00 PM ATTENTION: The Clinical Documentation Specialists (CDI) and [facility] Coding Staff appreciate your assistance in clarifying documentation. Please respond to the clarification below the line at the bottom and electronically sign. The CDI & [facility] Coding staff will review the response and follow-up if needed. Please note: Queries are made part of the Legal Health Record. If you have any questions, please contact the author of this message via ITS. Doctor: Jovi Mora A Left lower extremity debridement on 10/14. Unfortunately, some required elements have not been documented. Additional clarification regarding the procedure is requested. History/Risk Factors: 79 year old male presents to the ED from [facility] for multiple wounds on the lower extremities and the sacral area with pain and drainage. Failed outpatient therapy with oral antibiotics. Medical History: CAD, GERD, HLD, HTN and Closed head injury. ED Note, 10/14 Clinical Indicators: left lower extremity 1 x 1 cm Treatment: Debridement, Tissue sent for culture, 10/14 Vancomycin IVPB x 1; 10/14 10/16 Vancomycin IVPB Q24H; 10/16 Vancomycin IVPB Q24H Please clarify the procedure performed: [ ] Excisional debridement (the removal of necrotic, devitalized tissue or slough by means of cutting away of tissue) Instrument: Nature of the tissue removed Appearance of the wound Depth of debridement [ ] Non-excisional debridement (the removal of necrotic, devitalized tissue or slough by means of flushing, brushing, or washing. (Irrigation) Instrument: Nature of the tissue removed Appearance of the wound Depth of debridement [ ] Other; please specify Five elements required for accurate and compliant documentation of a debridement: -Technique used (e.g., excisional, excised, cutting, brushing, jet lavage etc.) -Instrument(s) used (e.g., scalpel, curette, etc.) -Nature of the tissue removed (e.g., necrotic, devitalized tissues, non-viable tissue, etc.) -Appearance and size of the wound (e.g., down to fresh bleeding tissue, 7cm x 10cm, etc.) -Depth of the debridement* (e.g., skin, subcutaneous tissue, fascia, muscle, bone, etc.) (Template Last Revised: July 2024) MTDD
--- NOTE | 2024-10-20 14:22 | CDI ---
Documentation Clarification Form Date: 10/19/2024 01:54:00 PM From: Marcella Hooker RN CCDS Phone: [phone] Admit Date: 10/16/2024 09:22:00 AM Patient Name: Rubin Lambert Visit Number: [id number] Discharge Date: 10/19/2024 05:12:00 PM ATTENTION: The Clinical Documentation Specialists (CDI) and [facility] Coding Staff appreciate your assistance in clarifying documentation. Please respond to the clarification below the line at the bottom and electronically sign. The CDI & [facility] Coding staff will review the response and follow-up if needed. Please note: Queries are made part of the Legal Health Record. If you have any questions, please contact the author of this message via ITS. Doctor: Jovi Briseno Sacral debridement is documented on 10/14.. Unfortunately, some required elements have not been documented. Additional clarification regarding the procedure is requested. History/Risk Factors: 79 year old male presents to the ED from [facility] for multiple wounds on the lower extremities and the sacral area with pain and drainage. Failed outpatient therapy with oral antibiotics. Medical History: CAD, GERD, HLD, HTN and Closed head injury. ED Note, 10/14 Clinical Indicators: 10/14, Debridement: sacral wound was prepped and 1% lidocaine were infiltrated using sharp scissor we did the selective debridement was performed down to subtenons tissue no active bleeding was noted we placed extra silver and dressing applied patient tarted the procedure well plan is patient IV antibiotic Treatment: Debridement, Tissue sent for culture, 10/14 Vancomycin IVPB x 1; 10/14 10/16 Vancomycin IVPB Q24H; 10/16 Vancomycin IVPB Q24H, Extra silver and dressing applied Please clarify the procedure performed: [ ] Excisional debridement (the removal of necrotic, devitalized tissue or slough by means of cutting away of tissue) Nature of the tissue removed Appearance of the wound [ ] Non-excisional debridement (the removal of necrotic, devitalized tissue or slough by means of flushing, brushing, or washing. (Irrigation) Nature of the tissue removed Appearance of the wound [ ] Other; please specify Five elements required for accurate and compliant documentation of a debridement: -Technique used (e.g., excisional, excised, cutting, brushing, jet lavage etc.) -Instrument(s) used (e.g., scalpel, curette, etc.) -Nature of the tissue removed (e.g., necrotic, devitalized tissues, non-viable tissue, etc.) -Appearance and size of the wound (e.g., down to fresh bleeding tissue, 7cm x 10cm, etc.) -Depth of the debridement* (e.g., skin, subcutaneous tissue, fascia, muscle, bone, etc.) (Template Last Revised: July 2024) MTDD
[2024-10-20] MEDS ORDERED: VANCOMYCIN TROUGH DUE 1 EACH MISC MISCELLANE ONE (19:00)
--- NOTE | 2024-10-23 10:09 | CDI ---
Documentation Clarification Form Date: 10/19/2024 01:46:00 PM From: Marcella Hooker RN CCDS Phone: [phone] Admit Date: 10/16/2024 09:22:00 AM Patient Name: Rubin Lambert Visit Number: [id number] Discharge Date: 10/19/2024 05:12:00 PM ATTENTION: The Clinical Documentation Specialists (CDI) and [facility] Coding Staff appreciate your assistance in clarifying documentation. Please respond to the clarification below the line at the bottom and electronically sign. The CDI & [facility] Coding staff will review the response and follow-up if needed. Please note: Queries are made part of the Legal Health Record. If you have any questions, please contact the author of this message via ITS. Doctor: Jovi Mora A Left lower extremity debridement on 10/14. Unfortunately, some required elements have not been documented. Additional clarification regarding the procedure is requested. History/Risk Factors: 79 year old male presents to the ED from [facility] for multiple wounds on the lower extremities and the sacral area with pain and drainage. Failed outpatient therapy with oral antibiotics. Medical History: CAD, GERD, HLD, HTN and Closed head injury. ED Note, 10/14 Clinical Indicators: left lower extremity 1 x 1 cm Treatment: Debridement, Tissue sent for culture, 10/14 Vancomycin IVPB x 1; 10/14 10/16 Vancomycin IVPB Q24H; 10/16 Vancomycin IVPB Q24H Please clarify the procedure performed: [ ] Excisional debridement (the removal of necrotic, devitalized tissue or slough by means of cutting away of tissue) Instrument: Nature of the tissue removed Appearance of the wound Depth of debridement [ ] Non-excisional debridement (the removal of necrotic, devitalized tissue or slough by means of flushing, brushing, or washing. (Irrigation) Instrument: Nature of the tissue removed Appearance of the wound Depth of debridement [ ] Other; please specify Five elements required for accurate and compliant documentation of a debridement: -Technique used (e.g., excisional, excised, cutting, brushing, jet lavage etc.) -Instrument(s) used (e.g., scalpel, curette, etc.) -Nature of the tissue removed (e.g., necrotic, devitalized tissues, non-viable tissue, etc.) -Appearance and size of the wound (e.g., down to fresh bleeding tissue, 7cm x 10cm, etc.) -Depth of the debridement* (e.g., skin, subcutaneous tissue, fascia, muscle, bone, etc.) (Template Last Revised: July 2024) MTDD
--- NOTE | 2024-10-23 10:09 | CDI ---
Documentation Clarification Form Date: 10/19/2024 10:42:00 AM From: Marcella Hooker RN CCDS Phone: [phone] Admit Date: 10/16/2024 09:22:00 AM Patient Name: Rubin Lambert Visit Number: [id number] Discharge Date: 10/19/2024 05:12:00 PM ATTENTION: The Clinical Documentation Specialists (CDI) and [facility] Coding Staff appreciate your assistance in clarifying documentation. Please respond to the clarification below the line at the bottom and electronically sign. The CDI & [facility] Coding staff will review the response and follow-up if needed. Please note: Queries are made part of the Legal Health Record. If you have any questions, please contact the author of this message via ITS. Doctor/Provider: Jovi Mora A Left Thigh debridement is documented on 10/14. Unfortunately, some required elements have not been documented. Additional clarification regarding the procedure is requested. History/Risk Factors: 79 year old male presents to the ED from [facility] for multiple wounds on the lower extremities and the sacral area with pain and drainage. Failed outpatient therapy with oral antibiotics. Medical History: CAD, GERD, HLD, HTN and Closed head injury. ED Note, 10/14 Clinical Indicators: Left thigh wound on the anterior aspect of the left thigh measurement is 2 x 2 cm and using scissors we did selective debridement down to subcu tissue some devitalized tissue was removed. Treatment: Debridement, Tissue sent for culture, 10/14 Vancomycin IVPB x 1; 10/14 10/16 Vancomycin IVPB Q24H; 10/16 Vancomycin IVPB Q24H Please clarify the procedure performed: [ ] Excisional debridement (the removal of necrotic, devitalized tissue or slough by means of cutting away of tissue) Appearance of the wound [ ] Non-excisional debridement (the removal of necrotic, devitalized tissue or slough by means of flushing, brushing, or washing. (Irrigation) Appearance of the wound [ ] Other; please specify Five elements required for accurate and compliant documentation of a debridement: -Technique used (e.g., excisional, excised, cutting, brushing, jet lavage etc.) -Instrument(s) used (e.g., scalpel, curette, etc.) -Nature of the tissue removed (e.g., necrotic, devitalized tissues, non-viable tissue, etc.) -Appearance and size of the wound (e.g., down to fresh bleeding tissue, 7cm x 10cm, etc.) -Depth of the debridement* (e.g., skin, subcutaneous tissue, fascia, muscle, bone, etc.) (Template Last Revised: July 2024) MTDD
--- NOTE | 2024-10-23 10:11 | CDI ---
Documentation Clarification Form Date: 10/19/2024 01:54:00 PM From: Marcella Hooker Phone: [phone] Admit Date: 10/16/2024 09:22:00 AM Patient Name: Rubin Lambert Visit Number: [id number] Discharge Date: 10/19/2024 05:12:00 PM ATTENTION: The Clinical Documentation Specialists (CDI) and [facility] Coding Staff appreciate your assistance in clarifying documentation. Please respond to the clarification below the line at the bottom and electronically sign. The CDI & [facility] Coding staff will review the response and follow-up if needed. Please note: Queries are made part of the Legal Health Record. If you have any questions, please contact the author of this message via ITS. Doctor: Jovi Briseno Sacral debridement is documented on 10/14.. Unfortunately, some required elements have not been documented. Additional clarification regarding the procedure is requested. History/Risk Factors: 79 year old male presents to the ED from [facility] for multiple wounds on the lower extremities and the sacral area with pain and drainage. Failed outpatient therapy with oral antibiotics. Medical History: CAD, GERD, HLD, HTN and Closed head injury. ED Note, 10/14 Clinical Indicators: 10/14, Debridement: sacral wound was prepped and 1% lidocaine were infiltrated using sharp scissor we did the selective debridement was performed down to subtenons tissue no active bleeding was noted we placed extra silver and dressing applied patient tarted the procedure well plan is patient IV antibiotic Treatment: Debridement, Tissue sent for culture, 10/14 Vancomycin IVPB x 1; 10/14 10/16 Vancomycin IVPB Q24H; 10/16 Vancomycin IVPB Q24H, Extra silver and dressing applied Please clarify the procedure performed: [ ] Excisional debridement (the removal of necrotic, devitalized tissue or slough by means of cutting away of tissue) Nature of the tissue removed Appearance of the wound [ ] Non-excisional debridement (the removal of necrotic, devitalized tissue or slough by means of flushing, brushing, or washing. (Irrigation) Nature of the tissue removed Appearance of the wound [ ] Other; please specify Five elements required for accurate and compliant documentation of a debridement: -Technique used (e.g., excisional, excised, cutting, brushing, jet lavage etc.) -Instrument(s) used (e.g., scalpel, curette, etc.) -Nature of the tissue removed (e.g., necrotic, devitalized tissues, non-viable tissue, etc.) -Appearance and size of the wound (e.g., down to fresh bleeding tissue, 7cm x 10cm, etc.) -Depth of the debridement* (e.g., skin, subcutaneous tissue, fascia, muscle, bone, etc.) (Template Last Revised: July 2024) MTDD
--- NOTE | 2024-10-23 10:18 | CDI ---
Documentation Clarification Form Date: 10/19/2024 11:31:00 AM From: Marcella Hooker RN CCDS Phone: [phone] Admit Date: 10/16/2024 09:22:00 AM Patient Name: Rubin Lambert Visit Number: [id number] Discharge Date: 10/19/2024 05:12:00 PM ATTENTION: The Clinical Documentation Specialists (CDI) and [facility] Coding Staff appreciate your assistance in clarifying documentation. Please respond to the clarification below the line at the bottom and electronically sign. The CDI & [facility] Coding staff will review the response and follow-up if needed. Please note: Queries are made part of the Legal Health Record. If you have any questions, please contact the author of this message via ITS. Doctor: Jovi Mora A Sacral wound is documented in the procedure note 10/14 and A coccyx ulcer is documented in the ED note 10/14. Additional clarification regarding the stage and location of the pressure ulcer is requested. History/Risk Factors: 79 year old male presents [facility] the ED from [facility] for multiple wounds on the lower extremities and the sacral area with pain and drainage. Failed outpatient therapy with oral antibiotics. Medical History: CAD, GERD, HLD, HTN and Closed head injury. ED Note, 10/14. Clinical Indicators: Location: sacral wound Wound description: x x 2 cm with discoloration of the skin Treatment: debridement 10/14 down to subcutaneous tissue., off load every two hours, Vancomycin ivpb Please clarify the stage and location of pressure ulcer , if known: [ ] Stage 3 Sacral pressure ulcer [ ] Fill in stage ___ Sacral pressure ulcer [ ] Stage 3 Coccyx pressure ulcer [ ] Fill in stage ___ Coccyx pressure ulcer [ ] Other condition, please specify [ ] Unable to determine Clinical Definitions: Stage 1 Pressure Ulcer: intact skin, non-blanching redness of local area Stage 2 Pressure Ulcer: Partial thickness, loss of dermis, pink wound bed Stage 3 Pressure Ulcer: Full thickness tissue loss Stage 4 Pressure Ulcer: Full thickness tissue loss with exposed bone, tendon, or muscle. Unstageable pressure ulcer: Full thickness tissue loss in which the base of the ulcer is covered by slough (yellow, suarez, ortiz, green or brown) and/or eschar (suarez, brown or black) in the wound bed. (Template Last Revised: December 2020) MTDD
== END 2024-10-19 17:12 | disposition home or self-care (01) | DRG 570 ==
LOC: EC 23:39 → 5NMEDONC 10-14 02:06 → OBSVTOIN 10-16 09:22
PROVIDERS: ADMIT Internal Medicine; ATTEND Internal Medicine
PROC: 0JB90ZZ Excision of Buttock Subcutaneous Tissue and Fascia, Open Approach (ICD-10-PCS; principal; 2024-10-14)
PROC: 0JBP0ZZ Excision of Left Lower Leg Subcutaneous Tissue and Fascia, Open Approach (ICD-10-PCS; principal; 2024-10-14)
PROC: 0JB70ZZ Excision of Back Subcutaneous Tissue and Fascia, Open Approach (ICD-10-PCS; principal; 2024-10-14)
PROC: 0JBM0ZZ Excision of Left Upper Leg Subcutaneous Tissue and Fascia, Open Approach (ICD-10-PCS; principal; 2024-10-14)
DX: L03.116 Cellulitis of left lower limb (principal); L89.153 Pressure ulcer of sacral region, stage 3; I96 Gangrene, not elsewhere classified; I48.19 Other persistent atrial fibrillation; F03.C3 Unspecified dementia, severe, with mood disturbance; F03.C4 Unspecified dementia, severe, with anxiety; L02.31 Cutaneous abscess of buttock; S71.102A Unspecified open wound, left thigh, initial encounter; B95.2 Enterococcus as the cause of diseases classified elsewhere; G40.909 Epilepsy, unspecified, not intractable, without status epilepticus; L02.416 Cutaneous abscess of left lower limb; L03.115 Cellulitis of right lower limb; S81.802A Unspecified open wound, left lower leg, initial encounter; S31.829A Unspecified open wound of left buttock, initial encounter; I12.9 Hypertensive chronic kidney disease with stage 1 through stage 4 chronic kidney disease, or unspecified chronic kidney disease; N18.30 Chronic kidney disease, stage 3 unspecified; F32.A Depression, unspecified; S06.9X6S Unspecified intracranial injury with loss of consciousness greater than 24 hours without return to pre-existing conscious level with patient surviving, sequela; R41.89 Other symptoms and signs involving cognitive functions and awareness; E78.5 Hyperlipidemia, unspecified; I25.10 Atherosclerotic heart disease of native coronary artery without angina pectoris; K21.9 Gastro-esophageal reflux disease without esophagitis; I25.2 Old myocardial infarction; B95.62 Methicillin resistant Staphylococcus aureus infection as the cause of diseases classified elsewhere; G51.0 Bell's palsy; R32 Unspecified urinary incontinence; Z79.01 Long term (current) use of anticoagulants; Z79.82 Long term (current) use of aspirin; Z79.899 Other long term (current) drug therapy; Z95.5 Presence of coronary angioplasty implant and graft; Z91.041 Radiographic dye allergy status
CPT/HCPCS: 36415; 80053; 80202; 82565; 83605; 85025; 85652; 86140; 87040; 87070; 87075; 87077; 87186; 87205; 96360; 99284

== ENCOUNTER 2025-03-19 15:39 | Emergency (ER) | payer MEDICARE ==
[2025-03-19] MEDS ORDERED: ACETAMINOPHEN TAB 325 MG TAB PO STA (15:41)
[2025-03-19 15:49] VITALS: TEMP 97
[2025-03-19 16:26] LABS: Basophils # (A) 0.03 10*3/uL (0.00-0.10); Basophils % (A) 0.3 %; Eosinophils # (A) 0.17 10*3/uL (0.04-0.35); Eosinophils % (A) 1.7 %; HCT 41.2 % (39.6-50.0); HGB 13.3 g/dL (13.0-17.0); Lymphocytes % (A) 16.4 %; MCHC 32.3 g/dL (32.0-37.0); MCV 92.8 fL (80.0-97.0); Mean Platelet Volume 11.3 fL (9.5-12.2); Monocytes # (A) 1.33 10*3/uL (0.20-1.00); Monocytes % (A) 13.6 %; Neutrophils # (A) 6.59 10*3/uL (1.80-7.70); Neutrophils % (A) 67.6 %; Platelet Count 182 10*3/uL (140-440); RBC 4.44 10*6/uL (4.40-5.60); RDW 14.3 % (11.5-14.5); WBC 9.76 10*3/uL (4.50-10.00)
--- NOTE | 2025-03-19 16:28 | CT ---
EXAMINATION TYPE: CT brain cspine wo con CT DLP: 1782.2 mGycm, Automated exposure control for dose reduction was used. DATE OF EXAM: 03/19/2025 4:07 PM COMPARISON: None.. CLINICAL INDICATION:Male, 80 years old with history of trauma; FALL ON THINNERS CODE COAG, pain TECHNIQUE: Brain: Multiple axial CT images of the brain were obtained without IV contrast. Cspine: Axial CT images from the skull base to the inferior aspect of T2 we obtained without intraven ous contrast. Coronal and sagittal reformatted images were also reviewed. FINDINGS: Brain: Extra-axial spaces: No abnormal extra-axial fluid collections. Ventricular system: Dilatation in proportion to cerebral atrophy. Cerebral parenchyma: Cerebral atrophy. No acute intraparenchymal hemorrhage or mass effect. The ortiz -white junction is well differentiated. Scattered hypoattenuating areas are seen within the periventr icular white matter. Cerebellum: Unremarkable. Mass effect: No evidence of midline shift. Intracranial vasculature: unremarkable Soft tissues: Normal. Calvarium/osseous structures: No depressed skull fracture. Benign hyperostosis frontalis noted. Paranasal sinuses and mastoid air cells: Clear. Visualized orbits: Orbital contents are intact. Cervical spine: Fracture: None. Osseous structures: Multilevel degenerative disc disease changes with endplate spurring and disc oste ophyte complex's. Multilevel facet arthropathy. Vertebral alignment: Degenerative grade 1 anterolisthesis of C4 on C5. Spinal canal/Neural Foramina: Disc osteophyte complexes at C5-C6 and C6-C7 with at least mild spinal canal stenosis. Facet joint uncovertebral joint arthropathy scattered throughout the cervical spine w ith varying degrees of neural foraminal stenosis. Neck soft tissues: Prevertebral soft tissues are within normal limits. Other: The airway is patent. The lung apices are clear. IMPRESSION: 1. No acute intracranial process. 2. Cerebral atrophy with mild nonspecific white matter changes, likely secondary to chronic small ves sofia ischemic disease. 3. No evidence of cervical spine fracture. 4. Moderate multilevel degenerative disc disease. [facility], , 03/19/2025 4:25 PM
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
[2025-03-19 16:37] LABS: Partial Thromboplastin Time 24.1 sec (22.0-30.0); Prothrombin Time 10.7 sec (10.0-12.5)
[2025-03-19 16:43] LABS: ALT 15 U/L (4-49); AST 18 U/L (17-59); African American GFR (CKD) 51 (>60 ml/min/1.73 sqM); Albumin 3.2 g/dL (3.5-5.0); Alcohol <10 mg/dL; Alkaline Phosphatase 102 U/L (38-126); Anion Gap 6 mmol/L; Blood Urea Nitrogen 24 mg/dL (9-20); Calcium 9.1 mg/dL (8.4-10.2); Carbon Dioxide 28 mmol/L (22-30); Chloride 106 mmol/L (98-107); Glucose 80 mg/dL (74-99); Non-African American GFR(CKD) 45 (>60 ml/min/1.73 sqM); Potassium 4.9 mmol/L (3.5-5.1); Sodium 140 mmol/L (137-145); Total Bilirubin 0.4 mg/dL (0.2-1.3); Total Protein 5.8 g/dL (6.3-8.2)
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
[2025-03-19 19:18] VITALS: BP 130/69; PULSE 71; RESP 20
== END 2025-03-19 19:00 | disposition home or self-care (01) ==
LOC: EC 15:39
DX: M54.50 Low back pain, unspecified (principal); G89.29 Other chronic pain; Z79.01 Long term (current) use of anticoagulants; Z91.041 Radiographic dye allergy status; W18.39XA Other fall on same level, initial encounter
CPT/HCPCS: 36415; 70450; 71045; 72125; 72131; 72170; 80053; 80320; 85025; 85610; 85730; 86850; 86900; 86901; 93005; 99285

== ENCOUNTER 2025-05-21 00:26 | Emergency (ER) | payer MEDICARE ==
[2025-05-21 00:34] VITALS: BP 114/78; PULSE 69; RESP 16; TEMP 97.9
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
--- NOTE | 2025-05-21 01:17 | CT ---
EXAM: CT Head Without Intravenous Contrast CLINICAL HISTORY: ITS.REASON CT Reason: fall with LOC TECHNIQUE: Axial computed tomography images of the head/brain without intravenous contrast. CTDI is 49.2 mGy and DLP is 1188 mGy-cm. This CT exam was performed using one or more of the following dose reduction techniques: automated exposure control, adjustment of the mA and/or kV according to patient size, and/or use of iterative reconstruction technique. COMPARISON: No relevant prior studies available. FINDINGS: No acute intracranial hemorrhage. No midline shift or mass effect. The territorial ortiz-white matter differentiation is maintained throughout. Age-related cerebral volume loss. Periventricular and subcortical white matter hypoattenuation, consistent with chronic microangiopathy. The visualized orbits appear grossly unremarkable. The calvarium is intact. The visualized paranasal sinuses and mastoid air cells are grossly clear. IMPRESSION: No acute intracranial hemorrhage, midline shift, or mass effect.
== END 2025-05-21 02:18 | disposition home or self-care (01) ==
LOC: EC 00:26
DX: Z04.3 Encounter for examination and observation following other accident (principal); Z91.041 Radiographic dye allergy status; Z79.01 Long term (current) use of anticoagulants; W18.39XA Other fall on same level, initial encounter
CPT/HCPCS: 70450; 99284

== ENCOUNTER 2025-05-23 01:59 | Observation (INO) | payer MEDICARE ==
--- NOTE | 2025-05-23 02:18 | CT ---
EXAM: CT Head Without Intravenous Contrast CLINICAL HISTORY: ITS.REASON CT Reason: FALL ON THINNERS TECHNIQUE: Axial computed tomography images of the head/brain without intravenous contrast. CTDI is 45.2 mGy and DLP is 1074 mGy-cm. This CT exam was performed using one or more of the following dose reduction techniques: automated exposure control, adjustment of the mA and/or kV according to patient size, and/or use of iterative reconstruction technique. COMPARISON: No relevant prior studies available. FINDINGS: No acute intracranial hemorrhage. No midline shift or mass effect. The territorial ortiz-white matter differentiation is maintained throughout. Age-related cerebral volume loss. Periventricular and subcortical white matter hypoattenuation, consistent with chronic microangiopathy. The visualized orbits appear grossly unremarkable. The calvarium is intact. The visualized paranasal sinuses and mastoid air cells are grossly clear. IMPRESSION: No acute intracranial hemorrhage, midline shift, or mass effect. EXAM: CT Cervical Spine Without Intravenous Contrast CLINICAL HISTORY: ITS.REASON CT Reason: FALL ON THINNERS TECHNIQUE: Axial computed tomography images of the cervical spine without intravenous contrast. CTDI is 23.2 mGy and DLP is 588.6 mGy-cm. This CT exam was performed using one or more of the following dose reduction techniques: automated exposure control, adjustment of the mA and/or kV according to patient size, and/or use of iterative reconstruction technique. COMPARISON: No relevant prior studies available. FINDINGS: The vertebral body heights are maintained. The craniocervical junction is intact. The atlanto-dens interval is maintained. The dens is intact. There is no spondylolisthesis. Multilevel cervical spondylosis and degenerative disc disease. Straightening of the cervical lordosis. IMPRESSION: No acute fracture or subluxation of the cervical spine.
[2025-05-23 02:47] LABS: Basophils # (A) 0.04 10*3/uL (0.00-0.10); Basophils % (A) 0.5 %; Eosinophils # (A) 0.23 10*3/uL (0.04-0.35); Eosinophils % (A) 3.0 %; HCT 45.9 % (39.6-50.0); HGB 14.9 g/dL (13.0-17.0); Lymphocytes # (A) 2.06 10*3/uL (0.90-5.00); Lymphocytes % (A) 27.1 %; MCH 30.3 pg (27.0-32.0); MCHC 32.5 g/dL (32.0-37.0); MCV 93.3 fL (80.0-97.0); Monocytes # (A) 0.88 10*3/uL (0.20-1.00); Monocytes % (A) 11.6 %; Neutrophils # (A) 4.36 10*3/uL (1.80-7.70); Neutrophils % (A) 57.3 %; Platelet Count 194 10*3/uL (140-440); RBC 4.92 10*6/uL (4.40-5.60); RDW 14.5 % (11.5-14.5); WBC 7.61 10*3/uL (4.50-10.00)
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
[2025-05-23 03:11] LABS: INR 0.9 (<1.2); Partial Thromboplastin Time 24.9 sec (22.0-30.0); Prothrombin Time 10.5 sec (10.0-12.5)
[2025-05-23 03:12] LABS: ALT 16 U/L (4-49); AST 19 U/L (17-59); African American GFR (CKD) 58 (>60 ml/min/1.73 sqM); Albumin 3.4 g/dL (3.5-5.0); Alkaline Phosphatase 112 U/L (38-126); Anion Gap 6 mmol/L; Blood Urea Nitrogen 20 mg/dL (9-20); Calcium 9.4 mg/dL (8.4-10.2); Carbon Dioxide 28 mmol/L (22-30); Chloride 107 mmol/L (98-107); Glucose 89 mg/dL (74-99); Non-African American GFR(CKD) 50 (>60 ml/min/1.73 sqM); Potassium 4.9 mmol/L (3.5-5.1); Sodium 141 mmol/L (137-145); Total Protein 6.3 g/dL (6.3-8.2)
[2025-05-23] MEDS ORDERED: ACETAMINOPHEN TAB 325 MG TAB PO PRN (04:33)
[2025-05-23] MEDS ORDERED: NALOXONE 0.4 MG/ML 1 ML VIAL IV PRN (04:33)
[2025-05-23] MEDS ORDERED: HYDROmorphone 0.5 MG/0.5 ML SYRINGE IVP PRN (04:33)
[2025-05-23] MEDS ORDERED: ZINC OXIDE PASTE (Z-GUARD) 1 APPLIC TOPICAL PRN (12:12)
[2025-05-23] MEDS ORDERED: LOPERAMIDE 2 MG CAP PO PRN (16:48)
[2025-05-23] MEDS ORDERED: MAGNESIUM HYDROXIDE 2,400 MG/30 ML CUP PO PRN (16:48)
[2025-05-23] MEDS ORDERED: ARTIFICIAL TEARS-HYPROMELLOSE DROPS 15 ML BTL BOTH EYES PRN (16:48)
[2025-05-23] MEDS ORDERED: ACETAMINOPHEN TAB 500 MG TAB PO PRN (16:48)
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
[2025-05-23] MEDS: PARoxetine 20 MG TAB PO SCH (18:10)
[2025-05-23] MEDS: METOPROLOL TARTRATE 25 MG TAB PO SCH (18:11)
[2025-05-23] MEDS: DIVALPROEX 500 MG TABLET.DR PO SCH (20:38)
[2025-05-23] MEDS: APIXABAN 2.5 MG TABLET PO SCH (20:38)
[2025-05-23] MEDS: ATORVASTATIN 80 MG TAB PO SCH (20:38)
[2025-05-24] MEDS: PANTOPRAZOLE 40 MG TABLET PO SCH (09:35)
[2025-05-24] MEDS: ASPIRIN 81 MG PO SCH (09:35)
[2025-05-24] MEDS: ISOSORBIDE MONONITRATE ER 30 MG TAB.ER.24H PO SCH (09:35)
--- NOTE | 2025-05-24 10:30 | P.PN ---
Subjective Progress Note Date: 05/24/25 Rubin Lambert, is an 80-year-old male who presented to [facility] emergency room with a chief complaint of fall with head trauma. Patient states that he has been having difficulty with his gait, he had 2 falls in the last week, fell today at his living room and hit his head and decided to come to emergency room, he denies any loss of consciousness/ He was evaluated in the emergency room vital examination on presentation revealed temperature of 97.6 pulse 63 respiration 18 blood pressure 116/77 pulse ox 98% on room air Laboratory data revealed a white blood count of 7.61 hemoglobin 14.9 platelet count 194 BUN 20 creatinine 1.34 Testing in the emergency room revealed CT scan of the brain revealed no acute intracranial hemorrhage no midline shift or mass effect CT scan of the cervical spine revealed no evidence of vertebral fracture Patient was admitted to medical floor for further evaluation and treatment On 05/24/2025 patient is alert and oriented x 3. Still awaiting social work input in regards to possible discharge plan to [facility] per patient request. Patient denies chest pain or shortness of breath. Patient denies nausea vomiting or diarrhea. Patient denies any urinary burning or frequency current vital signs temp 97.7, heart rate 64, respiratory rate 16, blood pressure 121/82 with pulse ox of 97% on room air Objective - Vital Signs Vital signs: Vital Signs Temp 97.7 F 05/24/25 07:18 Pulse 64 05/24/25 07:18 Resp 16 05/24/25 07:18 BP 121/82 05/24/25 07:18 Pulse Ox 97 05/24/25 07:18 FiO2 Intake & Output 05/23/25 05/24/25 05/24/25 18:59 06:59 18:59 Intake Total 1080 Balance 1080 Intake: Oral 1080 Other: Voiding Method Diaper Diaper Incontinent Incontinent # Voids 0 2 - Exam In general patient is alert and oriented x 3 in no distress HEENT head normocephalic and atraumatic Neck is supple no JVD no goiter no lymphadenopathy no carotid bruit Chest examination is clear to auscultation no crackles no wheezing Cardiac exam reveals regular heart sounds S1 and S2 no gallops no murmurs Abdomen is soft nontender no organomegaly with normal bowel sounds Extremity exam reveals no edema no cyanosis or clubbing Neurological examination reveals no gross focal deficits - Labs CBC & Chem 7: 05/23/25 02:23 05/23/25 02:23 Assessment and Plan Assessment: Fall with head injury Underlying history of atrial fibrillation maintained on Eliquis Underlying history of coronary artery disease Underlying history of hypertension Underlying history of hyperlipidemia Underlying history of memory impairment At this time patient is admitted to medical floor Medications reviewed and reordered Physical therapy and Occupational Therapy requested Patient will need to be admitted to rehab unit, he is agreeable with Felipe Merritt Will recheck in a.m.
[2025-05-24 19:51] VITALS: RESP 16
[2025-05-25 08:00] LABS: Basophils # (A) 0.04 X 10*3/uL (0.00-0.10); Basophils % (A) 0.5 %; Eosinophils # (A) 0.29 X 10*3/uL (0.04-0.35); Eosinophils % (A) 3.3 %; HCT 46.1 % (39.6-50.0); HGB 14.4 g/dL (13.0-17.0); Immature Grans, Automated 0.50 %; Lymphocytes # (A) 2.20 X 10*3/uL (0.90-5.00); Lymphocytes % (A) 25.4 %; MCH 29.6 pg (27.0-32.0); MCHC 31.2 g/dL (32.0-37.0); MCV 94.7 FL (80.0-97.0); Monocytes # (A) 1.12 X 10*3/uL (0.20-1.00); Monocytes % (A) 12.9 %; NRBC Per 100 WBC 0 X 10*3/uL (0.00-0.01); Neutrophils # (A) 4.97 X 10*3/uL (1.80-7.70); Neutrophils % (A) 57.4 %; Platelet Count 176 X 10*3/uL (140-440); RBC 4.87 X 10*6/uL (4.40-5.60); RDW 14.5 % (11.5-14.5); WBC 8.66 X 10*3/uL (4.50-10.00)
--- NOTE | 2025-05-25 10:04 | P.DS ---
Providers Date of admission: 05/23/25 04:36 Expected date of discharge: 05/25/25 Attending physician: Autumn Lloyd Primary care physician: Autumn Lloyd [facility] Course: Discharge diagnosis Fall with head injury Underlying history of atrial fibrillation maintained on Eliquis Underlying history of coronary artery disease Underlying history of hypertension Underlying history of hyperlipidemia Underlying history of memory impairment Hospital course Rubin Lambert, is an 80-year-old male who presented to [facility] emergency room with a chief complaint of fall with head trauma. Patient states that he has been having difficulty with his gait, he had 2 falls in the last week, fell today at his living room and hit his head and decided to come to emergency room, he denies any loss of consciousness/ He was evaluated in the emergency room vital examination on presentation revealed temperature of 97.6 pulse 63 respiration 18 blood pressure 116/77 pulse ox 98% on room air Laboratory data revealed a white blood count of 7.61 hemoglobin 14.9 platelet count 194 BUN 20 creatinine 1.34 Testing in the emergency room revealed CT scan of the brain revealed no acute intracranial hemorrhage no midline shift or mass effect CT scan of the cervical spine revealed no evidence of vertebral fracture Patient was admitted to medical floor for further evaluation and treatment On 05/24/2025 patient is alert and oriented x 3. Still awaiting social work input in regards to possible discharge plan to [facility] per patient request. Patient denies chest pain or shortness of breath. Patient denies nausea vomiting or diarrhea. Patient denies any urinary burning or frequency current vital signs temp 97.7, heart rate 64, respiratory rate 16, blood pressure 121/82 with pulse ox of 97% on room air On 05/25/2025 patient is alert and oriented x 3. Discharge planning home with home health care services to assisted living facility. At this time patient denies chest pain or shortness of breath. Patient denies nausea vomiting or diarrhea. Patient denies any urinary burning or frequency Patient Condition at Discharge: Stable Plan - Discharge Summary New Discharge Prescriptions: Continue Isosorbide Mononitrate ER [Imdur] 30 mg PO DAILY@0800 Divalproex [Depakote] 500 mg PO HS@2000 PARoxetine HCL 40 mg PO BID@0800,1800 Omeprazole 20 mg PO DAILY@0800 Metoprolol Tartrate [Lopressor] 25 mg PO BID@0800,1700 Atorvastatin [Lipitor] 80 mg PO HS@1999 Acetaminophen Tab [Tylenol] 1,000 mg PO Q6H PRN PRN Reason: Fever And/ Or Pain Loperamide [Imodium] 2 - 4 mg PO QID PRN PRN Reason: Diarrhea Magnesium Hydroxide [Milk of Magnesia] 2,400 mg PO ONCE PRN PRN Reason: Constipation Artificial Tears-Hypromellose [Artificial Tear Drops] 1 drop BOTH EYES QID PRN PRN Reason: Dry Eye(S) Aspirin 81 mg PO DAILY@0800 Apixaban [Eliquis] 2.5 mg PO BID@799,1999 ALPRAZolam [Xanax] 1 mg PO BID@799,1999 Menthol-Zinc Oxide Oint [Calmoseptine Ointment] 1 applic TOPICAL BID PRN PRN Reason: buttocks irritation Discharge Medication List Divalproex [Depakote] 500 mg PO HS@199906/02/18 [History] Isosorbide Mononitrate ER [Imdur] 30 mg PO DAILY@0800 06/02/18 [History] PARoxetine HCL 40 mg PO BID@0800,1800 06/02/18 [History] Omeprazole 20 mg PO DAILY@0800 11/16/22 [History] Artificial Tears-Hypromellose [Artificial Tear Drops] 1 drop BOTH EYES QID PRN 08/31/24 [History] Metoprolol Tartrate [Lopressor] 25 mg PO BID@0800,1700 08/31/24 [History] Acetaminophen Tab [Tylenol] 1,000 mg PO Q6H PRN 10/14/24 [History] Apixaban [Eliquis] 2.5 mg PO BID@0800,199910/14/24 [History] Aspirin 81 mg PO DAILY@0800 10/14/24 [History] Atorvastatin [Lipitor] 80 mg PO HS@199910/14/24 [History] Loperamide [Imodium] 2 - 4 mg PO QID PRN 10/14/24 [History] Magnesium Hydroxide [Milk of Magnesia] 2,400 mg PO ONCE PRN 10/14/24 [History] ALPRAZolam [Xanax] 1 mg PO BID@0800,199905/23/25 [History] Menthol-Zinc Oxide Oint [Calmoseptine Ointment] 1 applic TOPICAL BID PRN 05/23/25 [History] Follow up Appointment(s)/Referral(s): [facility], [NON-STAFF] - 1 Week Autumn Lloyd MD [Primary Care Provider] - 1-2 days Discharge Disposition: HOME WITH HOME HEALTH SERVICES
[2025-05-25 10:41] LABS: ALT 18 U/L (10-49); AST 20 U/L (14-35); Albumin 3.6 g/dL (3.8-4.9); Albumin/Globulin Ratio 1.57 Ratio (1.60-3.17); Alkaline Phosphatase 115 U/L (41-126); Anion Gap 9.70 mmol/L (4.00-12.00); BUN/Creat Ratio 17.40 Ratio (12.00-20.00); Blood Urea Nitrogen 26.1 mg/dL (9.0-27.0); Calcium 8.9 mg/dL (8.7-10.3); Carbon Dioxide 26.3 mmol/L (21.6-31.8); Chloride 106 mmol/L (96-109); Globulin 2.3 g/dL (1.6-3.3); Glucose 85 mg/dL (70-110); Potassium 5.0 mmol/L (3.5-5.5); Sodium 142 mmol/L (135-145); Total Protein 5.9 g/dL (6.2-8.2)
[2025-05-25 12:22] VITALS: BP 125/83; PULSE 78; TEMP 97.7
== END 2025-05-25 12:45 | disposition home health service (06) ==
LOC: EC 01:59 → 4SSUR 04:36 → 5NMEDONC 04:50
PROVIDERS: ADMIT Internal Medicine; ATTEND Internal Medicine
DX: S09.90XA Unspecified injury of head, initial encounter (principal); W19.XXXA Unspecified fall, initial encounter; R29.6 Repeated falls; I48.91 Unspecified atrial fibrillation; I25.10 Atherosclerotic heart disease of native coronary artery without angina pectoris; K21.9 Gastro-esophageal reflux disease without esophagitis; E78.5 Hyperlipidemia, unspecified; I10 Essential (primary) hypertension; G31.84 Mild cognitive impairment of uncertain or unknown etiology; I25.2 Old myocardial infarction; Z95.5 Presence of coronary angioplasty implant and graft; Z79.899 Other long term (current) drug therapy; Z79.01 Long term (current) use of anticoagulants; Z79.82 Long term (current) use of aspirin
CPT/HCPCS: 99285; 36415; 93005; 97530 ×3; 97162; 97166; 80053 ×2; 85025 ×2; 85610; 85730; 72125; 70450; G0378 ×3

== ENCOUNTER 2025-05-26 00:30 | Emergency (ER) | payer MEDICARE ==
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
[2025-05-26 02:06] LABS: Basophils # (A) 0.05 10*3/uL (0.00-0.10); Basophils % (A) 0.5 %; Eosinophils # (A) 0.30 10*3/uL (0.04-0.35); Eosinophils % (A) 3.1 %; HCT 45.4 % (39.6-50.0); HGB 14.9 g/dL (13.0-17.0); Lymphocytes # (A) 1.74 10*3/uL (0.90-5.00); Lymphocytes % (A) 18.2 %; MCH 30.2 pg (27.0-32.0); MCHC 32.8 g/dL (32.0-37.0); MCV 92.1 fL (80.0-97.0); Monocytes # (A) 1.25 10*3/uL (0.20-1.00); Monocytes % (A) 13.1 %; Neutrophils # (A) 6.18 10*3/uL (1.80-7.70); Neutrophils % (A) 64.6 %; Platelet Count 186 10*3/uL (140-440); RBC 4.93 10*6/uL (4.40-5.60); RDW 14.1 % (11.5-14.5); WBC 9.57 10*3/uL (4.50-10.00)
[2025-05-26 02:47] LABS: African American GFR (CKD) 55 (>60 ml/min/1.73 sqM); Anion Gap 8 mmol/L; Blood Urea Nitrogen 28 mg/dL (9-20); Calcium 9.2 mg/dL (8.4-10.2); Carbon Dioxide 24 mmol/L (22-30); Chloride 107 mmol/L (98-107); Glucose 90 mg/dL (74-99); Non-African American GFR(CKD) 47 (>60 ml/min/1.73 sqM); Potassium 4.9 mmol/L (3.5-5.1); Sodium 139 mmol/L (137-145)
--- NOTE | 2025-05-26 02:49 | CT ---
EXAM: CT Head Without Intravenous Contrast CLINICAL HISTORY: ITS.REASON CT Reason: fall TECHNIQUE: Axial computed tomography images of the head/brain without intravenous contrast. CTDI is 45.3 mGy and DLP is 1088 mGy-cm. This CT exam was performed using one or more of the following dose reduction techniques: automated exposure control, adjustment of the mA and/or kV according to patient size, and/or use of iterative reconstruction technique. COMPARISON: Prior head CT from May 23, 2025. FINDINGS: Brain: Unremarkable. No hemorrhage. No significant white matter disease. No edema. Ventricles: Moderate ventriculomegaly. Bones/joints: Unremarkable. No acute fracture. Soft tissues: Unremarkable. Sinuses: Unremarkable as visualized. No acute sinusitis. Mastoid air cells: Unremarkable as visualized. No mastoid effusion. IMPRESSION: No evidence of acute intracranial pathology. EXAM: CT Cervical Spine Without Intravenous Contrast CLINICAL HISTORY: ITS.REASON CT Reason: fall TECHNIQUE: Axial computed tomography images of the cervical spine without intravenous contrast. CTDI is 36.5 mGy and DLP is 908.1 mGy-cm. This CT exam was performed using one or more of the following dose reduction techniques: automated exposure control, adjustment of the mA and/or kV according to patient size, and/or use of iterative reconstruction technique. COMPARISON: Prior CT scan of the cervical spine from May 23, 2025. FINDINGS: Vertebrae: Unremarkable. No acute fracture. Discs/spinal canal/neural foramina: No acute findings. No spinal canal stenosis. Soft tissues: Unremarkable. IMPRESSION: No evidence of acute cervical spine pathology.
[2025-05-26 03:55] VITALS: BP 118/83; PULSE 72; RESP 17; TEMP 97.9
== END 2025-05-26 05:29 | disposition home or self-care (01) ==
LOC: EC 00:30
DX: R29.6 Repeated falls (principal); R53.81 Other malaise; Z91.041 Radiographic dye allergy status
CPT/HCPCS: 36415; 70450; 72125; 80048; 85025; 93005; 99284

== ENCOUNTER 2025-05-29 18:51 | Emergency (ER) | payer MEDICARE ==
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
--- NOTE | 2025-05-29 19:33 | CT ---
EXAMINATION TYPE: CT brain cspine wo con DATE OF EXAM: 05/29/2025 7:14 PM COMPARISON: Multiple prior CT studies, most recently dated 05/26/2025. CLINICAL INDICATION: Male, 80 years old with history of fall injury; Code coag: Fall on thinners TECHNIQUE: Brain: Multiple axial CT images of the brain were obtained without IV contrast. Cspine: Axial CT images from the skull base to the inferior aspect of T2 we obtained without intraven ous contrast. Coronal and sagittal reformatted images were also reviewed. . CT DLP: 8277 mGycm, Automated exposure control for dose reduction was used. FINDINGS: Brain: Extra-axial spaces: No abnormal extra-axial fluid collections. Ventricular system: Dilatation in proportion to cerebral atrophy. Cerebral parenchyma: Cerebral atrophy. No acute intraparenchymal hemorrhage or mass effect. The ortiz -white junction is well differentiated. Scattered hypoattenuating areas are seen within the white mat ter. Cerebellum: Unremarkable. Mass effect: No evidence of midline shift. Intracranial vasculature: unremarkable Soft tissues: Normal. Calvarium/osseous structures: No depressed skull fracture. Paranasal sinuses and mastoid air cells: Clear. Visualized orbits: Orbital contents are intact. Cervical spine: Fracture: None. Osseous structures: Multilevel degenerative disc disease changes with endplate spurring and disc oste ophyte complex's. Vertebral alignment: Minimal anterolisthesis of C4 on C5. Spinal canal/Neural Foramina: Multilevel facet arthropathy and uncovertebral hypertrophy in combinati on with posterior disc osteophyte complexes cause varying degrees of multilevel spinal canal and neur al foraminal stenosis. Neck soft tissues: Prevertebral soft tissues are within normal limits. Other: The airway is patent. The lung apices are clear. IMPRESSION: 1. No acute intracranial process. 2. No acute fracture or traumatic subluxation of the cervical spine. [facility], , 05/29/2025 7:31 PM
[2025-05-29 19:37] LABS: Basophils # (A) 0.03 10*3/uL (0.00-0.10); Basophils % (A) 0.4 %; Eosinophils # (A) 0.28 10*3/uL (0.04-0.35); Eosinophils % (A) 3.3 %; HCT 41.0 % (39.6-50.0); HGB 13.4 g/dL (13.0-17.0); Lymphocytes # (A) 2.11 10*3/uL (0.90-5.00); Lymphocytes % (A) 25.1 %; MCH 30.5 pg (27.0-32.0); MCHC 32.7 g/dL (32.0-37.0); MCV 93.2 fL (80.0-97.0); Monocytes # (A) 1.00 10*3/uL (0.20-1.00); Monocytes % (A) 11.9 %; Neutrophils # (A) 4.95 10*3/uL (1.80-7.70); Neutrophils % (A) 59.1 %; Platelet Count 171 10*3/uL (140-440); RBC 4.40 10*6/uL (4.40-5.60); RDW 14.2 % (11.5-14.5); WBC 8.39 10*3/uL (4.50-10.00)
[2025-05-29] MEDS: SODIUM CHLORIDE 0.9% 1,000 ML IV ONE (19:37)
[2025-05-29 19:57] LABS: ALT 16 U/L (4-49); AST 21 U/L (17-59); African American GFR (CKD) 55 (>60 ml/min/1.73 sqM); Albumin 3.1 g/dL (3.5-5.0); Alkaline Phosphatase 107 U/L (38-126); Anion Gap 5 mmol/L; Blood Urea Nitrogen 20 mg/dL (9-20); Calcium 8.7 mg/dL (8.4-10.2); Carbon Dioxide 26 mmol/L (22-30); Chloride 107 mmol/L (98-107); Glucose 111 mg/dL (74-99); Non-African American GFR(CKD) 48 (>60 ml/min/1.73 sqM); Potassium 4.8 mmol/L (3.5-5.1); Sodium 138 mmol/L (137-145); Total Protein 5.6 g/dL (6.3-8.2)
[2025-05-29 21:22] VITALS: BP 107/84; PULSE 70; RESP 16; TEMP 98.9
== END 2025-05-29 23:11 | disposition home or self-care (01) ==
LOC: EC 18:51
CPT/HCPCS: 36415; 70450; 72125; 80053; 83605; 85025; 96360; 99284